=== PATIENT | male | born 1985 ===

== ENCOUNTER 2019-11-08 18:29 | Inpatient (IN) | payer SELFPAY ==
[~2019-11-08] VITALS: Ht 54.9 cm; Wt 83.1 kg
[2019-11-08] MEDS ORDERED: LISI2.5T (18:48)
[2019-11-08] MEDS ORDERED: ATOR20TA66 (18:48)
[2019-11-08] MEDS ORDERED: FENO145T37 (18:48)
[2019-11-08] MEDS ORDERED: METF-397 PO (18:48)
--- NOTE | 2019-11-08 18:54 | NUR ---
REPORT GIVEN TO SULLY COLON.
[2019-11-08 18:59] LABS: BASOPHILS % (AUTO) 0 % (0-10); EOSINOPHILS # (AUTO) 0.1 10^3/uL (0.0-0.3); EOSINOPHILS % (AUTO) 1 % (0-10); HEMATOCRIT 45 % (40-54); HEMOGLOBIN 17.9 G/DL (13.3-17.7); LYMPHOCYTES # (AUTO) 0.8 X 10^3 (1.0-4.0); LYMPHOCYTES % (AUTO) 9 % (12-44); MEAN CORPUSCULAR HEMOGLOBIN 28 PG (25-34); MEAN CORPUSCULAR HGB CONC 39 G/DL (32-36); MEAN CORPUSCULAR VOLUME 72 FL (80-99); MEAN PLATELET VOLUME 12.3 FL (7.4-10.4); MONOCYTES # (AUTO) 0.9 X 10^3 (0.0-1.0); MONOCYTES % (AUTO) 11 % (0-12); NEUTROPHILS # (AUTO) 6.6 X 10^3 (1.8-7.8); NEUTROPHILS % (AUTO) 79 % (42-75); PLATELET COUNT 147 10^3/uL (130-400); RED CELL DISTRIBUTION WIDTH 15.6 % (10.0-14.5); WHITE BLOOD COUNT 8.4 10^3/uL (4.3-11.0)
[2019-11-08 19:08] LABS: BILIRUBIN,URINE NEGATIVE (NEGATIVE); CLARITY,URINE CLEAR; COLOR,URINE YELLOW; GLUCOSE, URINE (UA) 3+ (NEGATIVE); KETONES,URINE NEGATIVE (NEGATIVE); LEUKOCYTE ESTERASE ,URINE NEGATIVE (NEGATIVE); NITRITE,URINE NEGATIVE (NEGATIVE); PH,URINE 7.5 (5-9); PROTEIN,URINE 1+ (NEGATIVE)
[2019-11-08 19:19] LABS: ALBUMIN 4.6 GM/DL (3.2-4.5); BILIRUBIN,TOTAL 0.5 MG/DL (0.1-1.0); BUN/CREATININE RATIO 12; CALCIUM 9.5 MG/DL (8.5-10.1); CARBON DIOXIDE 12 MMOL/L (21-32); CHLORIDE 98 MMOL/L (98-107); CREATININE SERUM 1.17 MG/DL (0.60-1.30); GFR ESTIMATED > 60; GLUCOSE 261 MG/DL (70-105); LIPASE 96 U/L (8-78); POTASSIUM 6.3 MMOL/L (3.6-5.0); SODIUM 128 MMOL/L (135-145)
[2019-11-08 19:19] LABS: AMORPHOUS SEDIMENT,UR MOD AMOR PHOSPHATE /LPF; BACTERIA,URINE NEGATIVE /HPF
[2019-11-08] MEDS ORDERED: NS IV 1000 ML 1,000 ML IV ONE ×2 (19:35→20:38)
[2019-11-08] MEDS ORDERED: GLIP5TAB13 (19:44)
[2019-11-08] MEDS ORDERED: ONDANSETRON 4 MG/2 ML (SDV) Z0FRAN IVP ONE (19:45)
[2019-11-08] MEDS ORDERED: fentaNYL INJECTION 100 MCG/2 ML AMP IVP ONE (20:00)
[2019-11-08] MEDS ORDERED: FAMOTIDINE 20MG/2ML IV (PEPCID) IVP ONE (20:00)
[2019-11-08 20:08] LABS: ALANINE AMINOTRANSFERASE 40 U/L (0-55); ALKALINE PHOSPHATASE 115 U/L (40-136)
[2019-11-08 20:09] LABS: CHOLESTEROL 252 MG/DL (< 200); TRIGLYCERIDES 3688 MG/DL (<150); VLDL CHOLESTEROL 738 MG/DL (5-40)
[2019-11-08 20:10] LABS: HDL CHOLESTEROL < 15 MG/DL (40-60)
[2019-11-08] MEDS ORDERED: NS 100 ML (IVPB) BAG IV ONE (20:15)
[2019-11-08] MEDS ORDERED: IOHEXOL 350 MG/ML 100 ML (OMNIPAQUE 350) VIAL IV ONE (20:15)
[2019-11-08] MEDS ORDERED: HOLD METFORMIN - RECEIVED CONTRAST 20 ML VIAL IV SCH (20:15)
--- NOTE | 2019-11-08 20:38 | Diagnostic Imaging Report ---
PROCEDURE: CT abdomen and pelvis with contrast. TECHNIQUE: Multiple contiguous axial images were obtained through the abdomen and pelvis after administration of intravenous contrast. Auto Exposure Controls were utilized during the CT exam to meet ALARA standards for radiation dose reduction. INDICATION: Nausea, vomiting, abdominal pain COMPARISON: None FINDINGS: Lung bases are clear. There is fatty infiltration throughout the liver. Single low density liver lesion is seen in the right hepatic lobe in the periphery. This is likely a small cyst. However, too small to classify. Follow-up with a nonemergent ultrasound is recommended. The gallbladder is normal. The spleen, pancreas, adrenal glands, kidneys, vascular structures, and bowel are grossly unremarkable. There is no free fluid, free air or obstruction. No inflammatory process is identified. Visualized appendix is normal. There is no lymphadenopathy. The prostate gland is normal. The bladder and distal ureters are unremarkable. Osseous structures are age-appropriate. IMPRESSION: 1. Fatty liver 2. Subcentimeter low-density liver lesion likely benign cysts. Nonemergent ultrasound recommended. 3. No bowel obstruction, free air, free fluid or inflammation. Dictated by: Dictated on workstation # [id number]
--- NOTE | 2019-11-08 20:59 | ED Abdominal Pain ---
General Chief Complaint: Abdominal/GI Problems Stated Complaint: UPPER ABD PAIN Nursing Triage Note: ARRIVED VIA AMB TO ROOM 05. COMPLAINS OF LEFT UPPER ABD PAIN THAT RADIATES INTO BACK. COMPLAINTS OF VOMITING THIS AM. HX OF PANCREATITIS. Sepsis Screen: No Definite Risk Source of Information: Patient Exam Limitations: No Limitations History of Present Illness Date Seen by Provider: Nov 08, 2019 Time Seen by Provider: 18:44 Initial Comments This 34-year-old gentleman presents to the emergency room with complaints of left-sided abdominal pain and vomiting that started this morning. He denies any diarrhea or constipation. Last bowel movement was this afternoon and was loose. He denies any fever, cough, or respiratory problems. Pain does not change with eating or drinking. He has a history of pancreatitis and elevated triglycerides for which she has been admitted at a hospital in [place] previously. He reports being out of some of his medications including glipizide, lisinopril, and fenofibrate for the past 2 weeks. His primary care provider is a [facility] in [facility]. Allergies and Home Medications Allergies Coded Allergies: No Known Drug Allergies (Unverified , 11/08/19) Patient Home Medication List Home Medication List Reviewed: Yes Review of Systems Review of Systems Constitutional: no symptoms reported EENTM: No Symptoms Reported Respiratory: No Symptoms Reported Cardiovascular: No Symptoms Reported Gastrointestinal: See HPI Genitourinary: No Symptoms Reported Musculoskeletal: no symptoms reported Skin: no symptoms reported Psychiatric/Neurological: No Symptoms Reported Endocrine: No Symptoms Reported Past Lyjfryp-Fkmfjk-Qqmrrp Hx Past Med/Social Hx: Reviewed and Corrections made Patient Social History Alcohol Use: Denies Use Recreational Drug Use: No Smoking Status: Never a Smoker Recent Foreign Travel: No Contact w/Someone Who Travel: No Recent Infectious Disease Expo: No Recent Hopitalizations: No Seasonal Allergies Seasonal Allergies: No Past Medical History Surgeries: Yes (HERNIA) Respiratory: No Cardiac: Yes High Cholesterol, Hypertension Neurological: No Genitourinary: No Gastrointestinal: Yes Pancreatitis Musculoskeletal: No Endocrine: Yes Diabetes, Non-Insulin dep HEENT: No Cancer: No Psychosocial: No Integumentary: No Physical Exam Vital Signs Vital Signs - First Documented 11/08/19 18:35 Temp 36.8 Pulse 85 Resp 16 B/P (MAP) 117/74 (88) Pulse Ox 96 O2 Delivery Room Air Capillary Refill : Less Than 3 Seconds Height/Weight/BMI Height: '" Weight: lbs. oz. 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 nml as tested, no motor/sensory deficits, alert, normal mood/affect, oriented x 3 Skin: normal color, warm/dry Progress/Results/Core Measures Results/Orders Lab Results Laboratory Tests Test 11/08/19 18:50 11/08/19 19:01 Range/Units White Blood Count 8.4 4.3-11.0 10^3/uL Red Blood Count 6.31 H 4.35-5.85 10^6/uL Hemoglobin 17.9 H 13.3-17.7 G/DL Hematocrit 45 40-54 % Mean Corpuscular Volume 72 L 80-99 FL Mean Corpuscular Hemoglobin 28 25-34 PG Mean Corpuscular Hemoglobin Concent 39 H 32-36 G/DL Red Cell Distribution Width 15.6 H 10.0-14.5 % Platelet Count 147 130-400 10^3/uL Mean Platelet Volume 12.3 H 7.4-10.4 FL Neutrophils (%) (Auto) 79 H 42-75 % Lymphocytes (%) (Auto) 9 L 12-44 % Monocytes (%) (Auto) 11 0-12 % Eosinophils (%) (Auto) 1 0-10 % Basophils (%) (Auto) 0 0-10 % Neutrophils # (Auto) 6.6 1.8-7.8 X 10^3 Lymphocytes # (Auto) 0.8 L 1.0-4.0 X 10^3 Monocytes # (Auto) 0.9 0.0-1.0 X 10^3 Eosinophils # (Auto) 0.1 0.0-0.3 10^3/uL Basophils # (Auto) 0.0 0.0-0.1 10^3/uL Sodium Level 128 L 135-145 MMOL/L Potassium Level 6.3 H 3.6-5.0 MMOL/L Chloride Level 98 98-107 MMOL/L Carbon Dioxide Level 12 L 21-32 MMOL/L Anion Gap 18 H 5-14 MMOL/L Blood Urea Nitrogen 14 7-18 MG/DL Creatinine 1.17 0.60-1.30 MG/DL Estimat Glomerular Filtration Rate > 60 BUN/Creatinine Ratio 12 Glucose Level 261 H 70-105 MG/DL Calcium Level 9.5 8.5-10.1 MG/DL Corrected Calcium 8.5-10.1 MG/DL Total Bilirubin 0.5 0.1-1.0 MG/DL Aspartate Amino Transf (AST/SGOT) 85 H 5-34 U/L Alanine Aminotransferase (ALT/SGPT) 40 0-55 U/L Alkaline Phosphatase 115 40-136 U/L Total Protein 14.0 H 6.4-8.2 GM/DL Albumin 4.6 H 3.2-4.5 GM/DL Triglycerides Level 3688 H <150 MG/DL Cholesterol Level 252 H < 200 MG/DL LDL Cholesterol Direct 58 1-129 MG/DL VLDL Cholesterol 738 H 5-40 MG/DL HDL Cholesterol < 15 L 40-60 MG/DL Lipase 96 H 8-78 U/L Urine Color YELLOW Urine Clarity CLEAR Urine pH 7.5 5-9 Urine Specific [place] 1.020 1.016-1.022 Urine Protein 1+ H NEGATIVE Urine Glucose (UA) 3+ H NEGATIVE Urine Ketones NEGATIVE NEGATIVE Urine Nitrite NEGATIVE NEGATIVE Urine Bilirubin NEGATIVE NEGATIVE Urine Urobilinogen 1.0 < = 1.0 MG/DL Urine Leukocyte Esterase NEGATIVE NEGATIVE Urine RBC (Auto) NEGATIVE NEGATIVE Urine RBC NONE /HPF Urine WBC NONE /HPF Urine Crystals PRESENT H /LPF Urine Amorphous Sediment MOD RADHA PHOSPHATE H /LPF Urine Bacteria NEGATIVE /HPF Urine Casts NONE /LPF Urine Mucus NEGATIVE /LPF Urine Culture Indicated NO My Orders Orders - DEV SEAY MD Cbc With Automated Diff (11/08/19 18:44) Comprehensive Metabolic Panel (11/08/19 18:44) Lipase (11/08/19 18:44) Ua Culture If Indicated (11/08/19 18:44) Ed Iv/Invasive Line Start (11/08/19 18:44) Ondansetron Injection (Zofran Injectio (11/08/19 19:45) Ns Iv 1000 Ml (Sodium Chloride 0.9%) (11/08/19 19:35) Lipid Panel (11/08/19 19:47) Famotidine Injection (Pepcid Injection) (11/08/19 20:00) Fentanyl Injection (Sublimaze Injection (11/08/19 20:00) Ct Abdomen/Pelvis W (11/08/19 19:49) Iohexol Injection (Omnipaque 350 Mg/Ml 1 (11/08/19 20:15) Received Contrast (Hold Metformin- Contr (11/08/19 20:15) Ns (Ivpb) (Sodium Chloride 0.9% Ivpb Bag (11/08/19 20:15) Ns Iv 1000 Ml (Sodium Chloride 0.9%) (11/08/19 20:38) Medications Given in ED Vital Signs/I&O 11/08/19 18:35 Temp 36.8 Pulse 85 Resp 16 B/P (MAP) 117/74 (88) Pulse Ox 96 O2 Delivery Room Air 11/09/19 00:00 Intake Total 1000 ml Balance 1000 ml Blood Pressure Mean: 88 Progress Progress Note : Progress Note Patient was treated with IV fluids, Zofran, and fentanyl while workup was being pursued. Patient was found to have a significant elevation in triglycerides. Lipase was only minimally elevated. Due to concerns about possible escalating pancreatitis, patient was admitted with nothing by mouth status. CT was performed due to patient's significant pain. No acute findings were seen to explain patient's pain. Case was reviewed with Dr. Lockwood Diagnostic Imaging Diagonstic Imaging: CT Plain Films/CT/US/NM/MRI: abdomen, pelvis Comments CT abdomen and pelvis viewed by me and report reviewed. See report below: NAME: CHEN SNOW [facility] REC#: [id number] PT STATUS: REG ER : 1985 PHYSICIAN: DEV SEAY MD ADMIT DATE: 11/08/19/ER Sign ed Date of Exam:11/08/19 CT ABDOMEN/PELVIS W PROCEDURE: CT abdomen and pelvis with contrast. TECHNIQUE: Multiple contiguous axial images were obtained through the abdomen and pelvis after administration of intravenous contrast. Auto Exposure Controls were utilized during the CT exam to meet ALARA standards for radiation dose reduction. INDICATION: Nausea, vomiting, abdominal pain COMPARISON: None FINDINGS: Lung bases are clear. There is fatty infiltration throughout the liver. Single low density liver lesion is seen in the right hepatic lobe in the periphery. This is likely a small cyst. However, too small to classify. Follow-up with a nonemergent ultrasound is recommended. The gallbladder is normal. The spleen, pancreas, adrenal glands, kidneys, vascular structures, and bowel are grossly unremarkable. There is no free fluid, free air or obstruction. No inflammatory process is identified. Visualized appendix is normal. There is no lymphadenopathy. The prostate gland is normal. The bladder and distal ureters are unremarkable. Osseous structures are age-appropriate. IMPRESSION: 1. Fatty liver 2. Subcentimeter low-density liver lesion likely benign cysts. Nonemergent ultrasound recommended. 3. No bowel obstruction, free air, free fluid or inflammation. Dictated by: Dictated on workstation # [id number] Dict: 11/08/192027 Trans: 11/08/192037 [facility] [id number] Interpreted by: SARANYA WEI Electronically signed by: SARANYA WEI 11/08/192037 Departure Communication (Admissions) Dr. Lockwood Impression Primary Impression: Left sided abdominal pain Additional Impressions: Elevated triglycerides with high cholesterol Hyponatremia Hyperkalemia Disposition: ADMITTED INPATIENT Condition: Improved Admissions Decision to Admit Reason: Admit from ER (General) Decision to Admit/Date: Nov 09, 2019 Departure-Patient Inst. Referrals: NO,LOCAL PHYSICIAN (PCP/Family) Primary Care Physician DEV SEAY MD Nov 08, 2019 20:59
[2019-11-08 22:20] VITALS: BP 123/73
--- NOTE | 2019-11-08 22:20 | NUR ---
CHEN SNOW admitted to room 433-1, with an admitting diagnosis of left sided abd pain, elevated triglycerides, hyponatremia, on 11/08/19 from ED via wheelchair, accompanied by staff and family.CHEN SNOW introduced to surroundings, call light, bed controls, phone, TV, temperature control, lights, meal times, smoking policy, visitor policy, side rail policy, bathrooms and showers. Patient Rights given to patient in the handbook. CHEN SNOW verbalizes understanding that [facility] is not responsible for the loss or damage to any personal effects or valuables that are kept in the patients posession during their hospitalization.
[2019-11-08] MEDS: NS IV 1000 ML 1,000 ML IV SCH (23:11)
[2019-11-08] MEDS: fentaNYL INJECTION 100 MCG/2 ML AMP IV PRN (23:11)
[2019-11-08] MEDS: PANTOPRAZOLE 40 MG (PROTONIX) VIAL IV SCH (23:11)
[2019-11-08] MEDS: ONDANSETRON 4 MG/2 ML (SDV) Z0FRAN IV PRN (23:23)
[2019-11-09] VITALS: BP 118/74
[2019-11-09] MEDS: fentaNYL INJECTION 100 MCG/2 ML AMP IV PRN ×4 (03:44→10:13)
[2019-11-09 04:30] VITALS: BP 104/68
[2019-11-09] MEDS: NS IV 1000 ML 1,000 ML IV SCH (05:49)
[2019-11-09 06:10] LABS: BASOPHILS % (AUTO) 0 % (0-10); EOSINOPHILS # (AUTO) 0.1 10^3/uL (0.0-0.3); EOSINOPHILS % (AUTO) 1 % (0-10); HEMATOCRIT 44 % (40-54); LYMPHOCYTES # (AUTO) 0.9 X 10^3 (1.0-4.0); LYMPHOCYTES % (AUTO) 12 % (12-44); MEAN CORPUSCULAR HEMOGLOBIN 26 PG (25-34); MEAN CORPUSCULAR HGB CONC 36 G/DL (32-36); MEAN CORPUSCULAR VOLUME 73 FL (80-99); MEAN PLATELET VOLUME 12.2 FL (7.4-10.4); MONOCYTES # (AUTO) 0.4 X 10^3 (0.0-1.0); MONOCYTES % (AUTO) 6 % (0-12); NEUTROPHILS # (AUTO) 6.1 X 10^3 (1.8-7.8); NEUTROPHILS % (AUTO) 82 % (42-75); PLATELET COUNT 122 10^3/uL (130-400); RED CELL DISTRIBUTION WIDTH 14.3 % (10.0-14.5); WHITE BLOOD COUNT 7.4 10^3/uL (4.3-11.0)
[2019-11-09 06:34] LABS: ALANINE AMINOTRANSFERASE 39 U/L (0-55); ALBUMIN 3.7 GM/DL (3.2-4.5); ALKALINE PHOSPHATASE 82 U/L (40-136); BILIRUBIN,TOTAL 0.8 MG/DL (0.1-1.0); BUN/CREATININE RATIO 13; CALCIUM 8.3 MG/DL (8.5-10.1); CHLORIDE 104 MMOL/L (98-107); CREATININE SERUM 0.87 MG/DL (0.60-1.30); GFR ESTIMATED > 60; GLUCOSE 209 MG/DL (70-105); LIPASE 61 U/L (8-78); POTASSIUM 4.8 MMOL/L (3.6-5.0); SODIUM 130 MMOL/L (135-145); TOTAL PROTEIN 8.9 GM/DL (6.4-8.2); TRIGLYCERIDES 1413 MG/DL (<150)
[2019-11-09 06:37] LABS: CARBON DIOXIDE 9 MMOL/L (21-32)
--- NOTE | 2019-11-09 06:57 | NUR ---
0637-CRITICAL CARBON DIOXIDE IS 9. [phone]- SPOKE WITH DR. RANDALL AND INFOMRED HIM OF PTS CRITICAL LAB. HE STATED HE WOULD TAKE A LOOK AT THE LABS TO SEE WHATS GOING ON.
[2019-11-09 07:27] LABS: MAGNESIUM 1.7 MG/DL (1.6-2.4); PHOSPHORUS 2.6 MG/DL (2.3-4.7)
[2019-11-09 08:00] VITALS: BP 112/77
[2019-11-09] MEDS: PANTOPRAZOLE 40 MG (PROTONIX) VIAL IV SCH (08:07)
[2019-11-09] MEDS: LACTATED RINGERS 1,000 ML IV SCH ×3 (09:43→21:52)
[2019-11-09 10:20] LABS: ABG BASE EXCESS -2.8 MMOL/L (-2.5-2.5); ABG OXYGEN SATURATION 96 % (94-100); ABG PCO2 38 MMHG (35-45); ABG PH 7.38 (7.37-7.43); ABG PO2 77 MMHG (79-93); ABG TCO2 22.6 MMOL/L (21.0-31.0)
[2019-11-09 10:21] LABS: ALLENS TEST YES-POS; INSPIRED O2 ROOM AIR; VENTILATOR NO
[2019-11-09 11:31] LABS: AMPHETAMINE SCREEN, URINE NEGATIVE (NEGATIVE); BARBITURATE SCREEN URINE NEGATIVE (NEGATIVE); BENZODIAZEPINES SCREEN URINE NEGATIVE (NEGATIVE); COCAINE SCREEN URINE NEGATIVE (NEGATIVE); METHADONE STAT NEGATIVE (NEGATIVE); METHAMPHETAMINE SCREEN URINE S NEGATIVE (NEGATIVE); OPIATE SCREEN URINE NEGATIVE (NEGATIVE); OXYCODONE STAT NEGATIVE (NEGATIVE); PROPOXYPHENE STAT NEGATIVE (NEGATIVE)
[2019-11-09 11:32] LABS: CANNABINOID SCREEN, URINE NEGATIVE (NEGATIVE); TRICYCLIC ANTIDEPRESSANTS SCRE NEGATIVE (NEGATIVE)
--- NOTE | 2019-11-09 14:50 | History & Physical-Hospitalist ---
History of Present Illness HPI/Chief Complaint Paty Hernandez is a 34-year-old male with past medical history of hypertension, diabetes, hyperlipidemia, who presented with abdominal pain. He reports the gradual onset of left-sided abdominal pain which is squeezing in nature with radiation to his epigastric region and to his back. He reports having similar symptoms before when he had pancreatitis due to hypertriglyceridemia. He is followed by a clinic in [place]. He recently ran out of his medications. He denies any fevers or chills. He denies any nausea or vomiting. He denies any diarrhea. He denies any chest pain or shortness of breath. Source: patient Exam Limitations: no limitations Date Seen 11/09/19 Time Seen by a Provider: 09:40 Attending Physician Rosemarie Randall MD PCP No,Local Physician Referring Physician Date of Admission Nov 08, 2019 at 21:11 Home Medications & Allergies Home Medications Reviewed patient Home Medication Reconciliation performed by pharmacy medication reconciliations air analysis technician and/or nursing. Patients Allergies have been reviewed. Allergies Allergies Coded Allergies No Known Drug Allergies (Mxxxzdfmlz41/27/19) Past Itglvuk-Nenlpb-Pwxvyz Hx Past Med/Social Hx: Reviewed Nursing Past Med/Soc Hx, Reviewed and Corrections made Patient Social History Alcohol Use: Denies Use Recreational Drug Use: No Smoking Status: Never a Smoker Recent Foreign Travel: No Contact w/other who traveled: No Recent Hopitalizations: No Recent Infectious Disease Expo: No Immunizations Up To Date Date of Influenza Vaccine: Aug 27, 2019 Seasonal Allergies Seasonal Allergies: No Past Medical History Cardiac: High Cholesterol, Hypertension Gastrointestinal: Pancreatitis Endocrine: Diabetes, Non-Insulin dep Family History Chronic lymphoid leukemia G8 SISTER, Onset:Adolescence Review of Systems Constitutional: no symptoms reported EENTM: no symptoms reported Respiratory: no symptoms reported Cardiovascular: no symptoms reported Gastrointestinal: abdominal pain Genitourinary: no symptoms reported Musculoskeletal: no symptoms reported Skin: no symptoms reported Psychiatric/Neurological: No Symptoms Reported Physical Exam Physical Exam Vital Signs Vital Signs - First Documented 11/08/19 18:35 Temp 36.8 Pulse 85 Resp 16 B/P (MAP) 117/74 (88) Pulse Ox 96 O2 Delivery Room Air Capillary Refill : Less Than 3 Seconds Height, Weight, BMI Height: '" Weight: lbs. oz. kg; 275.71 BMI Method: General Appearance: No Apparent Distress, WD/WN HEENT: PERRL/EOMI, Pharynx Normal Neck: Normal Inspection, Supple Respiratory: Lungs Clear, Normal Breath Sounds, No Respiratory Distress Cardiovascular: Regular Rate, Rhythm, No Edema, No Murmur Gastrointestinal: Normal Bowel Sounds, Soft; No Distended, No Guarding; Tenderness Extremity: Normal Inspection, Non Tender, No Pedal Edema Neurologic/Psychiatric: Alert, Oriented x3, No Motor/Sensory Deficits, Normal Mood/Affect Skin: Normal Color, Warm/Dry Lymphatic: No Adenopathy Results Results/Procedures Labs Laboratory Tests 11/08/19 18:50 11/09/19 05:57 Patient resulted labs reviewed. Imaging: Reviewed Imaging Report Assessment/Plan Admission Diagnosis Hypertriglyceridemia-induced pancreatitis Admission Status: Inpatient Order (span 2 midnights) Reason for Inpatient Admission: pancreatitis requiring IV pain control and bowel rest Assessment and Plan Hypertriglyceridemia-induced pancreatitis CT abdomen unrevealing Lipase mildly elevated Triglycerides severely elevated Nothing by mouth IV pain control ordered LR 150 mL per hour continue Lipitor and fenofibrate High anion gap metabolic acidosis Bicarbonate 9 on BMP this morning Lactic acid normal Beta hydroxy butyrate mildly elevated Alcohol negative ABG performed and bicarbonate level 22 Repeat BMP this afternoon Acute kidney injury creatinine mildly elevated on admission Improved this morning, continue to monitor Elevated protein level Likely associated with hypertriglyceridemia Check SPEP Liver lesion CT abdomen revealed subcentimeter liver lesion We'll plan for outpatient follow-up with ultrasound DVT prophylaxis: Lovenox Diagnosis/Problems Diagnosis/Problems (1) Pancreatitis Status: Acute Qualifiers: Pancreatitis type: other Acute pancreatitis complication: no infection or necrosis (2) Hypertriglyceridemia Status: Acute (3) Metabolic acidosis Status: Acute (4) CHLOE (acute kidney injury) Status: Acute (5) Elevated blood protein Status: Acute (6) Liver lesion Status: Acute Clinical Quality Measures DVT/VTE Risk/Contraindication: Risk Factor Score Per Nursin RFS Level Per Nursing on Admit: 1=Low/No VTE PPX ROSEMARIE RANDALL MD Nov 09, 2019 14:50
[2019-11-09 15:19] LABS: BUN/CREATININE RATIO 14; CALCIUM 8.2 MG/DL (8.5-10.1); CARBON DIOXIDE 17 MMOL/L (21-32); CHLORIDE 104 MMOL/L (98-107); CREATININE SERUM 0.84 MG/DL (0.60-1.30); GFR ESTIMATED > 60; GLUCOSE 181 MG/DL (70-105); POTASSIUM 3.9 MMOL/L (3.6-5.0); SODIUM 133 MMOL/L (135-145)
[2019-11-09] MEDS: inSUlin ASPART (NovoLOG) 1 UNIT/0.01 ML (CHARGE PER UNIT) SC SCH ×3 (15:42→21:51)
[2019-11-09 16:00] VITALS: BP 106/69
[2019-11-09 20:00] VITALS: BP 101/61
[2019-11-09] MEDS ORDERED: FENOFIBRATE 134 MG (LOFIBRA) CAPSULE PO SCH (21:00)
[2019-11-10 00:18] VITALS: BP 115/74
[2019-11-10 04:00] VITALS: BP 104/65
[2019-11-10] MEDS: ONDANSETRON 4 MG/2 ML (SDV) Z0FRAN IV PRN (04:54)
[2019-11-10] MEDS: inSUlin ASPART (NovoLOG) 1 UNIT/0.01 ML (CHARGE PER UNIT) SC SCH (05:41)
[2019-11-10 06:32] LABS: BUN/CREATININE RATIO 12; CALCIUM 8.5 MG/DL (8.5-10.1); CARBON DIOXIDE 20 MMOL/L (21-32); CHLORIDE 106 MMOL/L (98-107); CREATININE SERUM 0.86 MG/DL (0.60-1.30); GFR ESTIMATED > 60; GLUCOSE 150 MG/DL (70-105); POTASSIUM 3.8 MMOL/L (3.6-5.0); SODIUM 136 MMOL/L (135-145); TRIGLYCERIDES 356 MG/DL (<150)
[2019-11-10] MEDS: LACTATED RINGERS 1,000 ML IV SCH (06:33)
[2019-11-10] MEDS ORDERED: ACETAMINOPHEN 325 MG TABLET PO PRN (06:45)
[2019-11-10 07:40] VITALS: BP 103/65
--- NOTE | 2019-11-10 11:16 | Discharge Summary ---
Discharge Summary Hospital Course Problems/Dx: (1) Pancreatitis Status: Resolved Qualifiers: (2) Hypertriglyceridemia Status: Chronic (3) Metabolic acidosis Status: Resolved (4) CHLOE (acute kidney injury) Status: Resolved (5) Elevated blood protein Status: Acute (6) Liver lesion Status: Acute Hospital Course Date of Admission: Nov 08, 2019 at 21:11 Admission Diagnosis : Hypertriglyceridemia-induced pancreatitis Family Physician/Provider: Shirley Mtz Physician Date of Discharge: 11/10/19 Discharge Diagnosis: Hypertriglyceridemia-induced pancreatitis Hospital Course: Paty Hernandez is a 34-year-old male with past medical history of hypertension, diabetes, hyperlipidemia with marked hypertriglyceridemia, who presented with abdominal pain and was admitted with hypertriglyceridemia-induced pancreatitis. He was treated conservatively with IV fluids, pain medications, and gut rest. His pain improved rather quickly. His diet was advanced and he tolerated this well. His triglyceride levels came down the from above 3000 on arrival down to 300 on discharge. He had been out of his medications. 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 He needs to follow up with his primary care physician in [facility]. He was encouraged to get set up with a local physician. He was also found to have a protein gap. A serum protein electrophoresis was pending at the time of discharge. Workup also revealed a subcentimeter liver lesion. Radiology recommended follow-up with an ultrasound as an outpatient. Labs and Pending Lab Test: Laboratory Tests 11/09/19 14:57: Sodium Level 133L, Potassium Level 3.9, Chloride Level 104, Carbon Dioxide Level 17L, Anion Gap 12, Blood Urea Nitrogen 12, Creatinine 0.84, Estimat Glomerular Filtration Rate > 60, BUN/Creatinine Ratio 14, Glucose Level 181H, Calcium Level 8.2L 11/09/19 16:13: Glucometer 176H 11/09/19 21:08: Glucometer 176H 11/10/19 05:25: Glucometer 164H 11/10/19 05:45: Sodium Level 136, Potassium Level 3.8, Chloride Level 106, Carbon Dioxide Level 20L, Anion Gap 10, Blood Urea Nitrogen 10, Creatinine 0.86, Estimat Glomerular Filtration Rate > 60, BUN/Creatinine Ratio 12, Glucose Level 150H, Calcium Level 8.5, Triglycerides Level 356H Home Meds Active Reported Glipizide 5 Mg Tablet Fenofibrate (Fenofibrate Nanocrystallized) 145 Mg Tablet Atorvastatin Calcium 20 Mg Tablet Lisinopril 2.5 Mg Tablet Metformin HCl 500 Mg Tablet 1,000 Mg PO BID Assessment/Pt Instructions Take medications as prescribed. Pickup her prescriptions from your pharmacy. Work note given. Follow-up with her primary care physician in [place]. Consider establishing with a local physician. Discharge Planning: <30 minutes discharge planning Discharge Instructions Discharge Diet: Low Fat/Low Cholesterol Activity as Tolerated: Yes Discharge Physical Examination Vital Signs Vital Signs Date Time Temp Pulse Resp B/P (MAP) Pulse Ox O2 Delivery O2 Flow Rate FiO2 11/10/19 08:00 Room Air 11/10/19 07:40 36.7 75 16 103/65 (78 97 General Appearance: No Apparent Distress, WD/WN HEENT: PERRL/EOMI, Pharynx Normal Respiratory: Lungs Clear, Normal Breath Sounds, No Respiratory Distress Cardiovascular: Regular Rate, Rhythm, No Edema, No Murmur Gastrointestinal: Normal Bowel Sounds, Soft, Tenderness Extremity: Normal Inspection, Non Tender, No Pedal Edema Skin: Normal Color, Warm/Dry Neurologic/Psychiatric: Alert, Oriented x3, No Motor/Sensory Deficits, Normal Mood/Affect Allergies: Coded Allergies: No Known Drug Allergies (Unverified , 11/08/19) Discharge Summary Date of Admission Nov 08, 2019 at 21:11 Date of Discharge Discharge Date: Nov 10, 2019 Discharge Time: 08:15 Admission Diagnosis Hypertriglyceridemia-induced pancreatitis Discharge Diagnosis Hypertriglyceridemia-induced pancreatitis (1) Pancreatitis Status: Resolved Qualifiers: (2) Hypertriglyceridemia Status: Chronic (3) Metabolic acidosis Status: Resolved (4) CHLOE (acute kidney injury) Status: Resolved (5) Elevated blood protein Status: Acute (6) Liver lesion Status: Acute Clinical Quality Measures DVT/VTE Risk/Contraindication: Risk Factor Score Per Nursin RFS Level Per Nursing on Admit: 1=Low/No VTE PPX OSVALDO RANDALL MD Nov 10, 2019 11:15
[2019-11-10 13:30] VITALS: BP 103/65
== END 2019-11-10 13:31 | disposition home or self-care (01) | DRG 439 ==
LOC: EDUNIT# 18:29 → ER 18:33 → OBSVTOIN 21:11 → 4TH 21:11
PROVIDERS: ADMIT Internal Medicine; ATTEND Internal Medicine
DX: K85.90 Acute pancreatitis without necrosis or infection, unspecified (principal); E78.1 Pure hyperglyceridemia; E87.2 Acidosis; N17.9 Acute kidney failure, unspecified; E87.1 Hypo-osmolality and hyponatremia; R79.89 Other specified abnormal findings of blood chemistry; K76.9 Liver disease, unspecified; E11.9 Type 2 diabetes mellitus without complications; E78.00 Pure hypercholesterolemia, unspecified; I10 Essential (primary) hypertension; E87.5 Hyperkalemia; Z79.84 Long term (current) use of oral hypoglycemic drugs; Z91.14 Patient's other noncompliance with medication regimen
CPT/HCPCS: 36415; 74177; 80048; 80053; 80061; 80306; 80320; 81000; 82010; 82805; 82962; 83605; 83690; 83735; 84100; 84155; 84165; 84478; 85025; 96361; 96374; 96375

== ENCOUNTER → 2019-11-19 | Outpatient (CLI) | payer SELFPAY ==
[~2019-11-19] MED LIST: ATOR20TA66; FENO145T37; GLIP5TAB13; LISI2.5T; METF-397 PO
--- NOTE | 2019-11-19 12:34 | Diagnostic Imaging Report ---
INDICATION: Follow-up liver lesion noted on recent CT. COMPARISON: Correlation is made with CT study from 11/08/2019. FINDINGS: Liver is mildly enlarged at 19 cm. There is some increased echogenicity throughout the liver consistent with hepatic steatosis. Area of decreased echogenicity near the gallbladder is noted consistent with focal fatty sparing. There is a cyst in the right lobe of the liver measuring approximately 15 mm, correlating with the CT abnormality. Gallbladder is without stones or sludge. No wall thickening or biliary ductal dilatation is seen. Pancreas was obscured by bowel gas. The spleen is normal in size at 10.8 cm. Aorta is nonaneurysmal. IVC is unremarkable. Kidneys are without calculi or hydronephrosis. There is no ascites. IMPRESSION: 1. Hepatomegaly and hepatic steatosis. 2. Liver cyst, likely accounting for the CT abnormality. 3. No other significant abnormalities detected. Dictated by: Dictated on workstation # [id number]
== END ==
LOC: RAD 08:19
DX: K76.89 Other specified diseases of liver (principal); K76.0 Fatty (change of) liver, not elsewhere classified
CPT/HCPCS: 76700

== ENCOUNTER 2020-11-14 17:14 | Emergency (ER) | payer SELFPAY ==
[~2020-11-14 17:14] MED LIST changes: +FENO145T26; -FENO145T37
--- NOTE | 2020-11-14 18:24 | NUR ---
THIS RN WENT OUT TO [facility] TO GET PT. PT NO LONGER IN [facility]. REGISTRATION STAFF REPORT PT STATED "I DON'T NEED TO BE SEEN ANYMORE."
== END 2020-11-14 18:24 | disposition left against medical advice (07) ==
LOC: EDUNIT# 17:14 → ER 17:16
DX: R10.9 Unspecified abdominal pain (principal)

== ENCOUNTER 2021-06-04 13:45 | Emergency (ER) | payer SELFPAY ==
[~2021-06-04] VITALS: Ht 170 cm; Wt 80.0 kg
[2021-06-04] MEDS ORDERED: NS IV 1000 ML 1,000 ML IV STA (17:49)
[2021-06-04 17:56] LABS: BASOPHILS # (AUTO) 0.1 10^3/uL (0.0-0.1); BASOPHILS % (AUTO) 1 % (0-10); EOSINOPHILS # (AUTO) 0.8 10^3/uL (0.0-0.3); EOSINOPHILS % (AUTO) 10 % (0-10); HEMATOCRIT 49 % (40-54); HEMOGLOBIN 17.8 g/dL (13.3-17.7); LYMPHOCYTES # (AUTO) 1.3 10^3/uL (1.0-4.0); LYMPHOCYTES % (AUTO) 17 % (12-44); MEAN CORPUSCULAR HEMOGLOBIN 27 pg (25-34); MEAN CORPUSCULAR HGB CONC 36 g/dL (32-36); MEAN CORPUSCULAR VOLUME 75 fL (80-99); MEAN PLATELET VOLUME 12.2 fL (9.0-12.2); MONOCYTES # (AUTO) 0.4 10^3/uL (0.0-1.0); MONOCYTES % (AUTO) 6 % (0-12); NEUTROPHILS % (AUTO) 65 % (42-75); PLATELET COUNT 158 10^3/uL (130-400); WHITE BLOOD COUNT 7.7 10^3/uL (4.3-11.0)
--- NOTE | 2021-06-04 17:56 | ED Abdominal Pain ---
General Chief Complaint: Abdominal/GI Problems Stated Complaint: LEFT SIDE PAIN Nursing Triage Note: THE PT IS AMBULATORY TO THE ROOM WITHOUT DIFFICULTY. NO DISTRESS IS SEEN ON ARRIVAL. LOC IS NORMAL FOR THE PT. THE PT C/O ABD PAIN, TODAY. Source of Information: Patient (SOMEWHAT LIMITED HISTORIAn) History of Present Illness Date Seen by Provider: Jun 04, 2021 Time Seen by Provider: 17:45 Initial Comments PT ARRIVES VIA POV C/O LEFT UPPER QUADRANT PAIN, RADIATING TO LEFT FLANK--BEGAN SOMETIME THIS AFTERNOON PAIN WAXES AND WANES BUT DOES NOT GO AWAY NOTHING WORSENS OR IMPROVES PAIN C/O NAUSEA, VOMITED X 2 HAD NORMAL BM EARLIER TODAY NO URINARY SYMPTOMS NO FEVER NO HISTORY OF SIMILAR, BUT PER OLD RECORDS, HAS HISTORY OF PANCREATITIS HAS NOT TAKEN ANYTHING FOR SYMPTOMS ATE SHRIMP AND MUSHROOMS ( NOT FRIED) AT LUNCH TODAY PAIN BEGAN SOMETIME AFTER THAT NO PRIOR GI/ABDOMINAL PROBLEMS HAS HAD RIGHT INGUINAL HERNIA SURGERY IN THE PAST PT IS NON-INSULIN DEPENDENT DIABETIC, DOES NOT CHECK BLOOD SUGAR ROUTINELY NO KNOWN SICK CONTACTS PT WORKS AT [employer] PT HAS RECEIVED BOTH COVID VACCINES--LAST ONE 02/2021 PCP: MONCHO, MARGARET SILVA Allergies and Home Medications Allergies Coded Allergies: No Known Drug Allergies (Unverified , 11/08/19) Home Medications Atorvastatin Calcium 20 Mg Tablet, 20 MG PO DAILY Prescribed by: JANINE PADILLA on 06/04/212006 Fenofibrate Nanocrystallized 145 Mg Tablet, 145 MG PO DAILY Prescribed by: JANINE PADILLA on 06/04/21 2007 Glipizide 5 Mg Tablet, 5 MG PO BID Prescribed by: JANINE PADILLA on 06/04/21 2008 Metformin HCl 500 Mg Tablet, 1,000 MG PO BID, (Reported) Metformin HCl 500 Mg Tablet, 500 MG PO BID Prescribed by: JANINE PADILLA on 06/04/212007 Ondansetron 4 Mg Tab.rapdis, 4 MG PO Q4H Prescribed by: JANINE PADILLA on 06/04/212004 Patient Home Medication List Home Medication List Reviewed: Yes Review of Systems Review of Systems Constitutional: no symptoms reported Respiratory: No Symptoms Reported Cardiovascular: No Symptoms Reported Gastrointestinal: See HPI, Abdominal Pain; Denies Constipated, Denies Diarrhea; Nausea, Vomiting Genitourinary: No Symptoms Reported Musculoskeletal: see HPI, back pain Skin: no symptoms reported Psychiatric/Neurological: No Symptoms Reported Endocrine: No Symptoms Reported Hematologic/Lymphatic: No Symptoms Reported Past Iryugxi-Xuvejb-Pvbvaj Hx Patient Social History Tobacco Use?: No Smoking Status: Never a Smoker Smokeless Tobacco Frequency: Never a User Use of E-Cig and/or Vaping Martin: Never a User Substance use?: No Alcohol Use?: No Seasonal Allergies Seasonal Allergies: No Past Medical History Surgery/Hospitalization HX: RIGHT INGUINAL HERNIA REPAIR Surgeries: Yes (HERNIA) Abdominal Respiratory: No Cardiac: Yes High Cholesterol, Hypertension Neurological: No Genitourinary: No Gastrointestinal: Yes Pancreatitis Musculoskeletal: No Endocrine: Yes Diabetes, Non-Insulin dep HEENT: No Cancer: No Psychosocial: No Integumentary: No Family Medical History Chronic lymphoid leukemia G8 SISTER, Onset:Adolescence Physical Exam Vital Signs Vital Signs - First Documented 06/04/21 06/04/21 15:54 20:33 Temp 36.8 Pulse 70 Resp 16 B/P (MAP) 113/67 (82) Pulse Ox 98 Capillary Refill : Less Than 3 Seconds Height/Weight/BMI Height: '" Weight: lbs. oz. kg; 27.00 BMI Method: General Appearance: WD/WN, no apparent distress, other (DOES NOT APPEAR ILL OR TO BE IN ANY DISCOMFORT OR DISTRESS) HEENT: PERRL/EOMI; No scleral icterus (R), No scleral icterus (L) Neck: normal inspection Respiratory: normal breath sounds, no respiratory distress, no accessory muscle use Cardiovascular: regular rate, rhythm, no murmur Gastrointestinal: normal bowel sounds, soft, no organomegaly, no pulsatile mass; No distended, No guarding, No rebound; tenderness (LEFT UPPER QUADRANT AND LEFT FLANK/CVA AREA); No hernia, No mass Back: no vertebral tenderness, CVA tenderness (L) Neurologic/Psychiatric: timber cruiser II-XII nml as tested, no motor/sensory deficits, alert, normal mood/affect, oriented x 3 Skin: normal color (PT IS DARK-SKINNED), warm/dry; No rash Progress/Results/Core Measures Results/Orders Lab Results Laboratory Tests Test 06/04/21 15:50 06/04/21 18:16 06/04/21 20:20 Range/Units White Blood Count 7.7 4.3-11.0 10^3/uL Red Blood Count 6.58 H 4.30-5.52 10^6/uL Hemoglobin 17.8 H 13.3-17.7 g/dL Hematocrit 49 40-54 % Mean Corpuscular Volume 75 L 80-99 fL Mean Corpuscular Hemoglobin 27 25-34 pg Mean Corpuscular Hemoglobin Concent 36 32-36 g/dL Red Cell Distribution Width 13.7 10.0-14.5 % Platelet Count 158 130-400 10^3/uL Mean Platelet Volume 12.2 9.0-12.2 fL Immature Granulocyte % (Auto) 1 % Neutrophils (%) (Auto) 65 42-75 % Lymphocytes (%) (Auto) 17 12-44 % Monocytes (%) (Auto) 6 0-12 % Eosinophils (%) (Auto) 10 0-10 % Basophils (%) (Auto) 1 0-10 % Neutrophils # (Auto) 5.0 1.8-7.8 10^3/uL Lymphocytes # (Auto) 1.3 1.0-4.0 10^3/uL Monocytes # (Auto) 0.4 0.0-1.0 10^3/uL Eosinophils # (Auto) 0.8 H 0.0-0.3 10^3/uL Basophils # (Auto) 0.1 0.0-0.1 10^3/uL Immature Granulocyte # (Auto) 0.1 0.0-0.1 10^3/uL Sodium Level 130 L 135-145 MMOL/L Potassium Level 6.0 H 3.6-5.0 MMOL/L Chloride Level 97 L 98-107 MMOL/L Carbon Dioxide Level 19 L 21-32 MMOL/L Anion Gap 14 5-14 MMOL/L Blood Urea Nitrogen 14 7-18 MG/DL Creatinine 1.03 0.60-1.30 MG/DL Estimat Glomerular Filtration Rate 81 BUN/Creatinine Ratio 14 Glucose Level 374 H 70-105 MG/DL Calcium Level 9.0 8.5-10.1 MG/DL Corrected Calcium 8.8 8.5-10.1 MG/DL Magnesium Level 2.1 1.6-2.4 MG/DL Total Bilirubin 0.6 0.1-1.0 MG/DL Aspartate Amino Transf (AST/SGOT) 82 H 5-34 U/L Alanine Aminotransferase (ALT/SGPT) 36 0-55 U/L Alkaline Phosphatase 90 40-136 U/L Troponin I < 0.028 <0.028 NG/ML Total Protein 12.6 H 6.4-8.2 GM/DL Albumin 4.2 3.2-4.5 GM/DL Triglycerides Level 2436 H <150 MG/DL Cholesterol Level 247 H < 200 MG/DL LDL Cholesterol Direct 70 1-129 MG/DL VLDL Cholesterol 5-40 MG/DL HDL Cholesterol < 15 L 40-60 MG/DL Amylase Level 101 25-125 U/L Lipase 92 H 8-78 U/L Urine Color YELLOW Urine Clarity CLEAR Urine pH 7.0 5-9 Urine Specific [place] 1.010 L 1.016-1.022 Urine Protein NEGATIVE NEGATIVE Urine Glucose (UA) 3+ H NEGATIVE Urine Ketones NEGATIVE NEGATIVE Urine Nitrite NEGATIVE NEGATIVE Urine Bilirubin NEGATIVE NEGATIVE Urine Urobilinogen 0.2 < = 1.0 MG/DL Urine Leukocyte Esterase NEGATIVE NEGATIVE Urine RBC (Auto) NEGATIVE NEGATIVE Urine RBC NONE /HPF Urine WBC RARE /HPF Urine Squamous Epithelial Cells RARE /HPF Urine Crystals NONE /LPF Urine Bacteria NEGATIVE /HPF Urine Casts NONE /LPF Urine Mucus NEGATIVE /LPF Urine Culture Indicated NO Glucometer 192 H 70-110 MG/DL My Orders Orders - JANINE PADILLA DO Ed Iv/Invasive Line Start (06/04/21 17:49) Monitor-Rhythm Ecg Trace Only (06/04/21 17:49) Amylase (06/04/21 17:49) Cbc With Automated Diff (06/04/21 17:49) Comprehensive Metabolic Panel (06/04/21 17:49) Lipase (06/04/21 17:49) Magnesium (06/04/21 17:49) Ondansetron Injection (Zofran Injectio (06/04/21 18:00) Ns Iv 1000 Ml (Sodium Chloride 0.9%) (06/04/21 17:49) Ed Iv/Invasive Line Start (06/04/21 17:49) Lipid Panel (06/04/21 18:17) Ketorolac Injection (Toradol Injection) (06/04/21 18:30) Pantoprazole Injection (Protonix Injecti (06/04/21 18:30) Ekg Tracing (06/04/21 18:30) Troponin I (06/04/21 18:31) Ct Abdomen/Pelvis W (06/04/21 18:43) Acute Abd Series (06/04/21 18:43) Iohexol Injection (Omnipaque 350 Mg/Ml 1 (06/04/21 19:15) Received Contrast (Hold Metformin- Contr (06/04/21 19:15) Ns (Ivpb) (Sodium Chloride 0.9% Ivpb Bag (06/04/21 19:15) Ed Iv/Invasive Line Start (06/04/21 19:37) Ns Iv 1000 Ml (Sodium Chloride 0.9%) (06/04/21 19:45) Insulin (Regular) Human (Novolin R (Per (06/04/21 19:45) Accucheck Stat ONCE (06/04/21 20:01) Medications Given in ED Current Medications Medications Dose Ordered Sig/Kaylan Route Start Time Stop Time Status Last Admin Dose Admin Iohexol 100 ml ONCE ONCE IV 06/04/21 19:15 06/04/21 19:16 DC 06/04/21 19:22 100 ML Sodium Chloride 100 ml ONCE ONCE IV 06/04/21 19:15 06/04/21 19:16 DC 06/04/21 19:22 80 ML Vital Signs/I&O 06/04/21 06/04/21 15:54 20:33 Temp 36.8 Pulse 70 64 Resp 16 16 B/P (MAP) 113/67 (82) 100/84 Pulse Ox 98 Blood Pressure Mean: 82 Progress Progress Note : Progress Note GIVEN IV FLUIDS, ZOFRAN, TORADOL, PROTONIX--SYMPTOMS IMPROVED LAB SPECIMEN NOTED TO BE VERY LIPEMIC, AND DISCUSSED WITH AUTOMOTIVE LUBE TECHNICIAN--IS SUSPECTED THAT ELEVATED POTASSIUM IS FALSELY ELEVATED DUE TO VERY LIPEMIC SPECIMEN. PT DENIES ANY MISSED DOSES OF MEDICATIONS WILL WRITE RX'S FOR ALL OF PT'S MEDICATIONS TO ENSURE THAT HE WILL HAVE MEDICATIONS AVAILABLE TO HIM NO DETERIORATION IN PT'S CONDITION DURING ER STAY Initial ECG Impression Date: Jun 04, 2021 Initial ECG Impression Time: 18:41 Initial ECG Rate: 53 Initial ECG Rhythm: Normal Sinus Diagnostic Imaging Comments ABDOMEN XRAYS-PER RADIOLOGIST REPORT IMPRESSION: No acute abnormality in the chest or abdomen. CT ABDOMEN/PELVIS--PER RADIOLOGIST REPORT AT 1943 IMPRESSION: 1. No acute abnormality in the abdomen or pelvis. 2. Hepatic steatosis. Reviewed: Reviewed by Me Departure Communication (Admissions) 1954--SPOKE WITH DR. KIRBY, PT DOES NOT MEET ADMIT CRITERIA AT THIS TIME. WILL SEND HOME ON NO CARB DIET, TAKE FLUIDS, AND TAKE HIS TRIGLYCERIDE MEDICATIONS EVERY DAY. Impression Primary Impression: Left sided abdominal pain Additional Impressions: Hypertriglyceridemia Hyponatremia Uncontrolled diabetes mellitus Disposition: 01 HOME, SELF-CARE Condition: Improved Departure-Patient Inst. Referrals: NO,LOCAL PHYSICIAN (PCP) Primary Care Physician MULUGETA SILVA (Family) Primary Care Physician Patient Instructions: DIABETES, High Blood Sugar, Adult ED, High Triglycerides, How to Keep Track of Your Blood Sugar, How to Prevent High Blood Sugar Emergencies in Diabetes Add. Discharge Instructions: DO NOT MISS DOSES OF ANY OF YOUR MEDICATIONS--ESPECIALLY YOUR ATORVASTATIN AND FENOFIBRATE, WELL YOUR DIABETES MEDICATION CHECK YOUR BLOOD SUGAR 3-4 TIMES A DAY--BEFORE MEALS AND AT BEDTIME LOTS OF CLEAR LIQUIDS NO CARBOHYDRATES OF ANY KIND!!!!--NO SUGAR, NO STARCHES FOLLOW UP WITH [facility] IN 1-2 DAYS FOR FURTHER CARE All discharge instructions reviewed with patient and/or family. Voiced understanding. Scripts Glipizide (Glipizide) 5 Mg Tablet 5 MG PO BID, #60 TAB Prov: VALERIEJANINE K DO 06/04/21 Metformin HCl (Metformin HCl) 500 Mg Tablet 500 MG PO BID, #60 TAB Prov: VALERIEJANINE K DO 06/04/21 Fenofibrate Nanocrystallized (Fenofibrate) 145 Mg Tablet 145 MG PO DAILY, #30 TAB Prov: VALERIE,JANINE K DO 06/04/21 Atorvastatin Calcium (Atorvastatin Calcium) 20 Mg Tablet 20 MG PO DAILY, #30 TAB Prov: VALERIEJANINE K DO 06/04/21 Ondansetron (Ondansetron Odt) 4 Mg Tab.rapdis 4 MG PO Q4H for Nausea/Vomiting, #10 TAB Prov: VALERIEJANINE K DO 06/04/21 VALERIEJANINE K DO Jun 04, 2021 17:56
[2021-06-04 17:57] LABS: ALBUMIN 4.2 GM/DL (3.2-4.5)
[2021-06-04 18:00] LABS: TOTAL PROTEIN 12.6 GM/DL (6.4-8.2)
[2021-06-04] MEDS ORDERED: ONDANSETRON 4 MG/2 ML (SDV) Z0FRAN IVP ONE (18:00)
[2021-06-04 18:01] LABS: BILIRUBIN,TOTAL 0.6 MG/DL (0.1-1.0)
[2021-06-04 18:03] LABS: CREATININE SERUM 1.03 MG/DL (0.60-1.30)
[2021-06-04 18:06] LABS: MAGNESIUM 2.1 MG/DL (1.6-2.4)
[2021-06-04 18:26] LABS: BILIRUBIN,URINE NEGATIVE (NEGATIVE); CLARITY,URINE CLEAR; COLOR,URINE YELLOW; GLUCOSE, URINE (UA) 3+ (NEGATIVE); KETONES,URINE NEGATIVE (NEGATIVE); LEUKOCYTE ESTERASE ,URINE NEGATIVE (NEGATIVE); NITRITE,URINE NEGATIVE (NEGATIVE); PROTEIN,URINE NEGATIVE (NEGATIVE)
[2021-06-04] MEDS ORDERED: PANTOPRAZOLE 40 MG (PROTONIX) VIAL IV ONE (18:30)
[2021-06-04] MEDS ORDERED: KETOROLAC 30 MG/ML VIAL IVP ONE (18:30)
[2021-06-04 18:32] LABS: BACTERIA,URINE NEGATIVE /HPF; SQUAMOUS EPITHELIAL CELL,UR RARE /HPF; WBC,URINE RARE /HPF
[2021-06-04 18:39] LABS: CHOLESTEROL 247 MG/DL (< 200)
[2021-06-04 18:40] LABS: HDL CHOLESTEROL < 15 MG/DL (40-60)
[2021-06-04 19:03] LABS: TRIGLYCERIDES 2436 MG/DL (<150)
[2021-06-04] MEDS ORDERED: HOLD METFORMIN - RECEIVED CONTRAST 20 ML VIAL IV SCH (19:15)
[2021-06-04] MEDS ORDERED: NS 100 ML (IVPB) BAG IV ONE (19:15)
[2021-06-04] MEDS ORDERED: IOHEXOL 350 MG/ML 100 ML (OMNIPAQUE 350) VIAL IV ONE (19:15)
--- NOTE | 2021-06-04 19:41 | Diagnostic Imaging Report ---
EXAMINATION: CT abdomen and pelvis with intravenous contrast. TECHNIQUE: Multiple contiguous axial images were obtained through the abdomen and pelvis after the uneventful administration of intravenous contrast. All CT scans use one or more of the following dose optimizing techniques: automated exposure control, MA and/or KvP adjustment based on patient size and exam type or iterative reconstruction. HISTORY: LUQ PAIN COMPARISON: 11/08/2019 FINDINGS: Lung bases: The lung bases are clear. Solid organs: There is diffuse hypoattenuation of the liver compatible with hepatic steatosis. Stable hypoattenuating lesion within hepatic segment V. The gallbladder is normal. There is no biliary ductal dilation. Pancreas is normal. Spleen is normal. Adrenal glands are normal. The kidneys are normal without hydronephrosis. Bowel: There are multiple appendicoliths within a normally sized appendix. There is no bowel obstruction. Peritoneum: There is no intraperitoneal free fluid or free air. No suspicious lymphadenopathy. Vasculature: Normal without aneurysm. Musculoskeletal: Degenerative changes of the spine without suspicious osseous lesion or compression fracture. Pelvis: The prostate gland is normal. The urinary bladder is normal. IMPRESSION: 1. No acute abnormality in the abdomen or pelvis. 2. Hepatic steatosis. Dictated by: Dictated on workstation # [id number]
--- NOTE | 2021-06-04 19:44 | Diagnostic Imaging Report ---
EXAMINATION: Abdominal series and chest radiograph HISTORY: abd pain COMPARISON: CT abdomen and pelvis 06/04/2021 FINDINGS: Heart size and pulmonary vasculature are normal. The lungs are clear without consolidation, pleural effusion, or pneumothorax. The osseous structures are intact. There is moderate amount of gas and stool throughout the colon. Nonobstructive bowel gas pattern. No radiopaque foreign body. The osseous structures are intact. Contrast from prior CT is seen within the renal collecting systems and ureter. Contrast is seen within the urinary bladder. IMPRESSION: No acute abnormality in the chest or abdomen. Dictated by: Dictated on workstation # [id number]
[2021-06-04] MEDS ORDERED: inSUlin (REGULAR) HUMAN 1 UNIT/0.01 ML (CHARGE PER UNIT) IV ONE (19:45)
[2021-06-04] MEDS ORDERED: NS IV 1000 ML 1,000 ML IV SCH (19:45)
[2021-06-04] MEDS ORDERED: ONDA4TAB11 PO (20:05)
[2021-06-04] MEDS ORDERED: FENO145T26 PO (20:07)
[2021-06-04] MEDS ORDERED: ATOR20TA66 PO (20:07)
[2021-06-04] MEDS ORDERED: GLIP5TAB13 PO (20:08)
[2021-06-04] MEDS ORDERED: METF-397 PO (20:08)
[2021-06-04 20:33] VITALS: BP 100/84
== END 2021-06-04 20:35 | disposition home or self-care (01) ==
LOC: EDUNIT# 13:45 → ER 13:46
DX: R10.12 Left upper quadrant pain (principal); E78.1 Pure hyperglyceridemia; E87.1 Hypo-osmolality and hyponatremia; E11.65 Type 2 diabetes mellitus with hyperglycemia; Z79.84 Long term (current) use of oral hypoglycemic drugs; I10 Essential (primary) hypertension
CPT/HCPCS: 36415; 74022; 74177; 80053; 80061; 81000; 82150; 82947; 83690; 83735; 84484; 85025

== ENCOUNTER 2021-11-23 13:13 | Inpatient (IN) | payer BC ==
[~2021-11-23] VITALS: Ht 160 cm; Wt 81.8 kg
[~2021-11-23 13:13] MED LIST changes: +ATOR20TA66 PO; +FENO145T26 PO; +GLIP5TAB13 PO; -LISI2.5T; +LISI2.5T13; +ONDA4TAB11 PO
[2021-11-23] MEDS ORDERED: fentaNYL INJ 100 MCG/2 ML AMP IVP ONE (13:30)
[2021-11-23] MEDS ORDERED: ONDANSETRON 4 MG/2 ML (SDV) Z0FRAN IVP ONE (13:30)
--- NOTE | 2021-11-23 13:33 | ED Abdominal Pain ---
General Chief Complaint: Abdominal/GI Problems Stated Complaint: ABD PAIN, HX PANCREATITIS Source of Information: Patient Exam Limitations: No Limitations History of Present Illness Date Seen by Provider: Nov 23, 2021 Time Seen by Provider: 13:32 Initial Comments To ER by private vehicle with a 48-hour history of epigastric abdominal pain with nausea. History of pancreatitis about 3 years ago. These symptoms began on Monday 2 days ago. No known cause. He is diabetic takes metformin and glipizide. Does not drink alcohol or smoke cigarettes.He has a history of a prescription for atorvastatin and fenofibrate but I cannot tell when these were filled last. Timing/Duration: 1-2 Days Severity/Quality: Moderate Location: Epigastric Radiation: No Radiation Activities at Onset: None Associated Symptoms: Nausea/Vomiting Allergies and Home Medications Allergies Coded Allergies: No Known Drug Allergies (Unverified , 11/08/19) Patient Home Medication List Home Medication List Reviewed: Yes Atorvastatin Calcium (Atorvastatin Calcium) 20 Mg Tablet, (Reported) Entered as Reported by: DENNISE ALVARADO on 11/08/191847 Atorvastatin Calcium (Atorvastatin Calcium) 20 Mg Tablet, 20 MG PO DAILY Prescribed by: JANINE PADILLA on 06/04/212006 Fenofibrate Nanocrystallized (Fenofibrate) 145 Mg Tablet, (Reported) Entered as Reported by: DENNISE ALVARADO on 11/08/191847 Fenofibrate Nanocrystallized (Fenofibrate) 145 Mg Tablet, 145 MG PO DAILY Prescribed by: JANINE PADILLA on 06/04/212006 Glipizide (Glipizide) 5 Mg Tablet, (Reported) Entered as Reported by: SULLY CONDON on 11/08/191943 Glipizide (Glipizide) 5 Mg Tablet, 5 MG PO BID Prescribed by: JAINNE PADILLA on 06/04/212007 Lisinopril (Lisinopril) 2.5 Mg Tablet, (Reported) Entered as Reported by: DENNISE ALVARADO on 11/08/191847 Metformin HCl (Metformin HCl) 500 Mg Tablet, 1,000 MG PO BID, (Reported) Entered as Reported by: DENNISE ALVARADO on 11/08/191847 Metformin HCl (Metformin HCl) 500 Mg Tablet, 500 MG PO BID Prescribed by: JANINE PADILLA on 06/04/212007 Ondansetron (Ondansetron Odt) 4 Mg Tab.rapdis, 4 MG PO Q4H Prescribed by: JANINE PADILLA on 06/04/212004 Review of Systems Review of Systems Constitutional: see HPI EENTM: No Symptoms Reported Respiratory: No Symptoms Reported Cardiovascular: See HPI Gastrointestinal: See HPI, Abdominal Pain, Nausea Genitourinary: No Symptoms Reported Musculoskeletal: no symptoms reported Skin: no symptoms reported Psychiatric/Neurological: No Symptoms Reported Endocrine: No Symptoms Reported Hematologic/Lymphatic: No Symptoms Reported Past Prvnkhp-Abdnxa-Kpmuno Hx Seasonal Allergies Seasonal Allergies: No Past Medical History Surgery/Hospitalization HX: RIGHT INGUINAL HERNIA REPAIR Surgeries: Yes (HERNIA) Abdominal Respiratory: No Cardiac: Yes High Cholesterol, Hypertension Neurological: No Genitourinary: No Gastrointestinal: Yes Pancreatitis Musculoskeletal: No Endocrine: Yes Diabetes, Non-Insulin dep HEENT: No Cancer: No Psychosocial: No Integumentary: No Family Medical History Chronic lymphoid leukemia G8 SISTER, Onset:Adolescence Physical Exam Vital Signs Vital Signs - First Documented 11/23/21 13:34 Temp 36.5 Pulse 81 Resp 18 B/P (MAP) 131/88 (102) Pulse Ox 96 O2 Delivery Room Air Capillary Refill : Height/Weight/BMI Height: '" Weight: lbs. oz. kg; 27.00 BMI Method: General Appearance: WD/WN, no apparent distress, other (Appears uncomfortable) Neck: non-tender, full range of motion Respiratory: no respiratory distress, no accessory muscle use Cardiovascular: regular rate, rhythm, no murmur Gastrointestinal: normal bowel sounds, soft, tenderness Extremities: normal range of motion, non-tender, normal inspection Neurologic/Psychiatric: alert, normal mood/affect, oriented x 3 Skin: normal color, warm/dry Progress/Results/Core Measures Results/Orders Lab Results Laboratory Tests Test 11/23/21 13:27 Range/Units White Blood Count 8.0 4.3-11.0 10^3/uL Red Blood Count 6.55 H 4.30-5.52 10^6/uL Hemoglobin 18.8 H 13.3-17.7 g/dL Hematocrit 49 40-54 % Mean Corpuscular Volume 75 L 80-99 fL Mean Corpuscular Hemoglobin 29 25-34 pg Mean Corpuscular Hemoglobin Concent 38 H 32-36 g/dL Red Cell Distribution Width 13.4 10.0-14.5 % Platelet Count 148 130-400 10^3/uL Mean Platelet Volume 12.1 9.0-12.2 fL Immature Granulocyte % (Auto) 1 % Neutrophils (%) (Auto) 59 42-75 % Lymphocytes (%) (Auto) 22 12-44 % Monocytes (%) (Auto) 7 0-12 % Eosinophils (%) (Auto) 11 H 0-10 % Basophils (%) (Auto) 1 0-10 % Neutrophils # (Auto) 4.7 1.8-7.8 10^3/uL Lymphocytes # (Auto) 1.8 1.0-4.0 10^3/uL Monocytes # (Auto) 0.6 0.0-1.0 10^3/uL Eosinophils # (Auto) 0.9 H 0.0-0.3 10^3/uL Basophils # (Auto) 0.1 0.0-0.1 10^3/uL Immature Granulocyte # (Auto) 0.1 0.0-0.1 10^3/uL Sodium Level 127 L 135-145 MMOL/L Potassium Level 6.2 H 3.6-5.0 MMOL/L Chloride Level 95 L 98-107 MMOL/L Carbon Dioxide Level 18 L 21-32 MMOL/L Anion Gap 14 5-14 MMOL/L Blood Urea Nitrogen 17 7-18 MG/DL Creatinine 1.17 0.60-1.30 MG/DL Estimat Glomerular Filtration Rate 70 BUN/Creatinine Ratio 15 Glucose Level 310 H 70-105 MG/DL Calcium Level 9.4 8.5-10.1 MG/DL Corrected Calcium 9.2 8.5-10.1 MG/DL Total Bilirubin 0.5 0.1-1.0 MG/DL Aspartate Amino Transf (AST/SGOT) 88 H 5-34 U/L Alanine Aminotransferase (ALT/SGPT) 61 H 0-55 U/L Alkaline Phosphatase 82 40-136 U/L Total Protein 14.0 H 6.4-8.2 GM/DL Albumin 4.2 3.2-4.5 GM/DL Triglycerides Level 3874 H <150 MG/DL Cholesterol Level 300 H < 200 MG/DL LDL Cholesterol Direct 74 1-129 MG/DL VLDL Cholesterol 5-40 MG/DL HDL Cholesterol 16 L 40-60 MG/DL Lipase 6796 H 8-78 U/L My Orders Orders - PELAEZ,PETER J INTAKE MANAGER Cbc With Automated Diff (11/23/21 13:23) Comprehensive Metabolic Panel (11/23/21 13:23) Ua Culture If Indicated (11/23/21 13:23) Ed Iv/Invasive Line Start (11/23/21 13:23) Lipase (11/23/21 13:23) Ct Abdomen/Pelvis W (11/23/21 13:29) Ondansetron Injection (Zofran Injectio (11/23/21 13:30) Fentanyl Inj (Sublimaze Injection) (11/23/21 13:30) Lactated Ringers (Lr 1000 Ml Iv Solution (11/23/21 13:30) Lipid Panel (11/23/21 13:34) Iohexol Injection (Omnipaque 350 Mg/Ml 1 (11/23/21 13:45) Received Contrast (Hold Metformin- Contr (11/23/21 13:45) Ns (Ivpb) (Sodium Chloride 0.9% Ivpb Bag (11/23/21 13:45) Ekg Tracing (11/23/21 13:46) Lactated Ringers (Lr 1000 Ml Iv Solution (11/23/21 14:15) Hydromorphone Injection (Dilaudid Inject (11/23/21 14:15) Medications Given in ED Current Medications Medications Dose Ordered Sig/Kaylan Route Start Time Stop Time Status Last Admin Dose Admin Fentanyl Citrate 50 mcg ONCE ONCE IVP 11/23/21 13:30 11/23/21 13:31 DC 11/23/21 13:47 50 MCG Hydromorphone HCl 0.5 mg ONCE ONCE IV 11/23/21 14:15 11/23/21 14:16 DC 11/23/21 14:14 0.5 MG Iohexol 100 ml ONCE ONCE IV 11/23/21 13:45 11/23/21 13:46 DC 11/23/21 13:55 100 ML Ondansetron HCl 8 mg ONCE ONCE IVP 11/23/21 13:30 11/23/21 13:31 DC 11/23/21 13:44 8 MG Sodium Chloride 100 ml ONCE ONCE IV 11/23/21 13:45 11/23/21 13:46 DC 11/23/21 13:55 80 ML Vital Signs/I&O 11/23/21 13:34 Temp 36.5 Pulse 81 Resp 18 B/P (MAP) 131/88 (102) Pulse Ox 96 O2 Delivery Room Air Departure Communication (Admissions) 1348-He does not have any alarming features such as fever, leukocytosis, tachycardia or hypotension. He does have a hyponatremia, likely pseudohyponatremia as I expect his lipids will be quite elevated, those are still pending. Impression Primary Impression: Acute pancreatitis Additional Impression: Hypertriglyceridemia Disposition: ADMITTED INPATIENT Condition: Stable Admissions Decision to Admit Reason: Admit from ER (General) Decision to Admit/Date: Nov 23, 2021 Time/Decision to Admit Time: 13:38 Departure-Patient Inst. Referrals: [facility] (PCP) Primary Care Physician MULUGETA SILVA (Family) Primary Care Physician TOSHA PELAEZ APRN Nov 23, 2021 13:33
[2021-11-23 13:34] LABS: BASOPHILS # (AUTO) 0.1 10^3/uL (0.0-0.1); BASOPHILS % (AUTO) 1 % (0-10); EOSINOPHILS # (AUTO) 0.9 10^3/uL (0.0-0.3); EOSINOPHILS % (AUTO) 11 % (0-10); HEMATOCRIT 49 % (40-54); HEMOGLOBIN 18.8 g/dL (13.3-17.7); LYMPHOCYTES # (AUTO) 1.8 10^3/uL (1.0-4.0); LYMPHOCYTES % (AUTO) 22 % (12-44); MEAN CORPUSCULAR HEMOGLOBIN 29 pg (25-34); MEAN CORPUSCULAR HGB CONC 38 g/dL (32-36); MEAN CORPUSCULAR VOLUME 75 fL (80-99); MEAN PLATELET VOLUME 12.1 fL (9.0-12.2); MONOCYTES # (AUTO) 0.6 10^3/uL (0.0-1.0); MONOCYTES % (AUTO) 7 % (0-12); NEUTROPHILS # (AUTO) 4.7 10^3/uL (1.8-7.8); NEUTROPHILS % (AUTO) 59 % (42-75); PLATELET COUNT 148 10^3/uL (130-400)
[2021-11-23 13:43] LABS: ALBUMIN 4.2 GM/DL (3.2-4.5); POTASSIUM 6.2 MMOL/L (3.6-5.0)
[2021-11-23 13:44] LABS: CALCIUM 9.4 MG/DL (8.5-10.1)
[2021-11-23] MEDS ORDERED: NS 100 ML (IVPB) BAG IV ONE (13:45)
[2021-11-23] MEDS ORDERED: HOLD METFORMIN - RECEIVED CONTRAST 20 ML VIAL IV SCH (13:45)
[2021-11-23] MEDS ORDERED: IOHEXOL 350 MG/ML 100 ML (OMNIPAQUE 350) VIAL IV ONE (13:45)
[2021-11-23] MEDS: LACTATED RINGERS 1,000 ML IV SCH ×2 (13:46→15:46)
[2021-11-23 13:47] LABS: BILIRUBIN,TOTAL 0.5 MG/DL (0.1-1.0)
[2021-11-23 13:49] LABS: CREATININE SERUM 1.17 MG/DL (0.60-1.30)
[2021-11-23 14:14] LABS: HDL CHOLESTEROL 16 MG/DL (40-60)
[2021-11-23 14:15] LABS: CHOLESTEROL 300 MG/DL (< 200)
[2021-11-23] MEDS ORDERED: LACTATED RINGERS 1,000 ML IV SCH (14:15)
[2021-11-23] MEDS ORDERED: HYDROmorphone 2 MG/ML VIAL (DILAUDID) IV ONE ×2 (14:15→16:00)
[2021-11-23 14:18] LABS: TRIGLYCERIDES 3874 MG/DL (<150)
--- NOTE | 2021-11-23 14:23 | Diagnostic Imaging Report ---
EXAMINATION: CT abdomen and pelvis with intravenous contrast. TECHNIQUE: Multiple contiguous axial images were obtained through the abdomen and pelvis after the uneventful administration of intravenous contrast. All CT scans use one or more of the following dose optimizing techniques: automated exposure control, MA and/or KvP adjustment based on patient size and exam type or iterative reconstruction. HISTORY: epigastric pain COMPARISON: 06/04/2021. FINDINGS: Lung bases: The lung bases are clear. Solid organs: There is diffuse hypoattenuation of the liver compatible with hepatic steatosis. Likely focal fatty sparing within hepatic segment IV near the gallbladder. A right hepatic cyst is present. The gallbladder is normal. There is no biliary ductal dilation. There is hypoattenuation seen within the pancreatic tail with surrounding inflammatory stranding. No peripancreatic fluid collection or ductal dilatation. Spleen is normal. Adrenal glands are normal. The kidneys are normal without hydronephrosis. Bowel: The stomach and small bowel are normal without obstruction. The colon is unremarkable. There are multiple stones seen within the appendix. Peritoneum: Peripancreatic inflammatory stranding without loculated fluid collection or free air. No suspicious lymphadenopathy. Vasculature: Normal without aneurysm. Musculoskeletal: Degenerative changes of the spine without suspicious osseous lesion or compression fracture. Pelvis: The prostate gland is normal. The urinary bladder is normal. IMPRESSION: 1. Peripancreatic inflammatory stranding and fullness of the pancreatic tail, concerning for acute appendicitis. Recommend correlation with pancreatic enzymes. There is hypoenhancement seen within the pancreatic tail which does raise concern for necrosis or edema. No peripancreatic fluid collection or ductal dilatation. 2. Hepatic steatosis. Dictated by: Dictated on workstation # [id number]
[2021-11-23] MEDS: NS IV 1000 ML 1,000 ML IV SCH ×2 (16:00→21:29)
[2021-11-23] MEDS ORDERED: NS IV 1000 ML 1,000 ML IV SCH (16:45)
[2021-11-23] MEDS ORDERED: inSUlin (REGULAR) HUMAN 1 UNIT/0.01 ML (CHARGE PER UNIT) IV ONE (16:45)
[2021-11-23] MEDS: ENOXAPARIN 40 MG/0.4 ML (LOVENOX) SYR SC SCH (16:55)
[2021-11-23] MEDS: HYDROmorphone 2 MG/ML VIAL (DILAUDID) IV PRN ×3 (16:55→23:44)
[2021-11-23] MEDS: ONDANSETRON 4 MG/2 ML (SDV) Z0FRAN IVP PRN ×2 (16:55→21:19)
--- NOTE | 2021-11-23 17:29 | Tele-ICU Consult ---
History of Present Illness History of Present Illness Date Seen by Provider: Nov 23, 2021 Time Seen by Provider: 17:28 Date of Admission Allergies and Home Medications Allergies Coded Allergies: No Known Drug Allergies (Unverified , 11/08/19) Home Medications Atorvastatin Calcium 20 Mg Tablet, 20 MG PO DAILY Prescribed by: JANINE PADILLA on 06/04/212006 Fenofibrate Nanocrystallized 145 Mg Tablet, 145 MG PO DAILY Prescribed by: JANINE PADILLA on 06/04/212006 Glipizide 5 Mg Tablet, 5 MG PO BID Prescribed by: JANINE PADILLA on 06/04/212007 Metformin HCl 500 Mg Tablet, 1,000 MG PO BID, (Reported) Metformin HCl 500 Mg Tablet, 500 MG PO BID Prescribed by: JANINE PADILLA on 06/04/212007 Ondansetron 4 Mg Tab.rapdis, 4 MG PO Q4H Prescribed by: JANINE PADILLA on 06/04/212004 Past Medical/Social/Family Hx Patient Social History Tobacco Use?: No Smoking Status: Never a Smoker Smokeless Tobacco Frequency: Never a User Substance use?: No Alcohol Use?: No Pt stated abuse/neglect: No Immunizations Up To Date Influenza Vaccine Up-to-Date: Yes; Up-to-Date First/Initial COVID19 Vaccinat: AUG Second COVID19 Vaccination Louis: NOV Current Status Primary Language: Taiwanese Preferred Spoken Language: Taiwanese Implanted or Applied Medical D: None Review of Systems Constitutional: see HPI Focused Exam Height, Weight, BMI Height: '" Weight: lbs. oz. kg; 31.95 BMI Method: Exam Exam Patient acknowledged, consented, and participated in this virtual visit which was conducted using real time audio/video Vital Signs Date Time Temp Pulse Resp B/P (MAP) Pulse Ox O2 Delivery O2 Flow Rate FiO2 11/23/21 16:46 35.8 70 14 112/79 96 Room Air 11/23/21 16:45 65 15 112/79 97 Room Air 11/23/21 16:38 79 11/23/21 16:19 67 18 102/72 98 Room Air 11/23/21 13:34 36.5 81 18 131/88 (102) 96 Room Air Height & Weight Height: '" Weight: lbs. oz. kg; 31.95 BMI Method: General Appearance: No Apparent Distress Gastrointestinal: normal bowel sounds, soft, tenderness Results Lab Laboratory Tests 11/23/21 13:27 Assessment/Plan Assessment/Plan (Tele-ICU Physician , consultation) Available chart/ vitals / labs / Images reviewed H&P is from ER notes Patient's information available about PMH, Shx, Fhx allergy reviewed in EMR. ROS as per chart and RN report Now in ICU, hemodynamically stable Video assessment done using teleICU camera, rest of exam as per RN Discussed with RN. Consultants: Hospital course: 11/23- TGL pnancreatitis , insulin gtt A/P Hypertriglyceridemia induced pancreatitis - hydration - Insulin gtt with goal for TG below 500 mg/dL -glucose levels q1h - if glucose level 150 -200 mg/dL - start D5 gtt - monitor triglycerides q12h -IF patient's triglycerides do not improve with insulin drip. ( or calc clinically decompensates - will have to consider plasmapheresis -monitor for hypocalcemia -pain control DM - close f/up BS on insulin gtt CT - hypoenhancement seen within the pancreatic tail which does raise concern for necrosis or edema - follow closely Lines : (Central Line Necessity Reviewed) Pappas: OG: Nutrition: Analgesia: Anxiety/ delirium VTE Prophylaxis: christiana 40 Stress Ulcer Prophylaxis: Glycemic Control: Plans in collaboration with bedside consultants and IM MDs. Discussed with RN to reach out if any questions or concerns A total of 33 minutes of critical care time was devoted to this patient today, required to treat and/or prevent further deterioration of critical care con dition ( as above ) . TAMIE DELGADO MD Nov 23, 2021 17:29
[2021-11-23 17:37] LABS: POTASSIUM 4.5 MMOL/L (3.6-5.0)
[2021-11-23 17:39] LABS: CALCIUM 8.7 MG/DL (8.5-10.1)
[2021-11-23 17:43] LABS: CREATININE SERUM 0.92 MG/DL (0.60-1.30)
[2021-11-24] MEDS: ONDANSETRON 4 MG/2 ML (SDV) Z0FRAN IVP PRN ×2 (01:47→09:53)
[2021-11-24] MEDS: HYDROmorphone 2 MG/ML VIAL (DILAUDID) IV PRN ×6 (01:50→20:51)
[2021-11-24] MEDS: NS IV 1000 ML 1,000 ML IV SCH ×3 (02:18→21:02)
--- NOTE | 2021-11-24 03:28 | Progress Note ---
Standard Progress Note Progress Notes/Assess & Plan Date Seen by a Provider: Nov 24, 2021 Time Seen by a Provider: 03:27 Progress/Assessment & Plan called for IV D5W, will order @ 125 mL/h MD BLAKE Santos JOSEPH K MD Nov 24, 2021 03:28
[2021-11-24] MEDS ORDERED: D5 NS 1000 ML IV SOLUTION 1,000 ML IV ONE (03:30)
[2021-11-24] MEDS ORDERED: D5 NS 1000 ML IV SOLUTION 1,000 ML IV SCH (03:30)
[2021-11-24 04:54] LABS: BASOPHILS % (AUTO) 0 % (0-10); HEMOGLOBIN 16.2 g/dL (13.3-17.7); LYMPHOCYTES % (AUTO) 10 % (12-44)
[2021-11-24 04:57] LABS: EOSINOPHILS # (AUTO) 0.2 10^3/uL (0.0-0.3); EOSINOPHILS % (AUTO) 2 % (0-10); HEMATOCRIT 47 % (40-54); LYMPHOCYTES # (AUTO) 0.9 10^3/uL (1.0-4.0); MEAN CORPUSCULAR HEMOGLOBIN 26 pg (25-34); MEAN CORPUSCULAR HGB CONC 35 g/dL (32-36); MEAN CORPUSCULAR VOLUME 75 fL (80-99); MEAN PLATELET VOLUME 11.9 fL (9.0-12.2); MONOCYTES # (AUTO) 0.4 10^3/uL (0.0-1.0); MONOCYTES % (AUTO) 5 % (0-12); NEUTROPHILS # (AUTO) 7.2 10^3/uL (1.8-7.8); NEUTROPHILS % (AUTO) 82 % (42-75); PLATELET COUNT 101 10^3/uL (130-400); WHITE BLOOD COUNT 8.8 10^3/uL (4.3-11.0)
[2021-11-24 05:13] LABS: ALBUMIN 3.2 GM/DL (3.2-4.5); POTASSIUM 3.8 MMOL/L (3.6-5.0)
[2021-11-24 05:14] LABS: CALCIUM 8.1 MG/DL (8.5-10.1)
[2021-11-24 05:16] LABS: TOTAL PROTEIN 7.9 GM/DL (6.4-8.2)
[2021-11-24 05:17] LABS: BILIRUBIN,TOTAL 0.7 MG/DL (0.1-1.0)
[2021-11-24 05:19] LABS: CREATININE SERUM 0.77 MG/DL (0.60-1.30)
[2021-11-24] MEDS: POTASSIUM CL 10MEQ/50ML IVPB 50 ML IV SCH (07:17)
--- NOTE | 2021-11-24 09:54 | Tele-ICU Progress Note ---
Subjective Date Seen by a Provider: Nov 24, 2021 Time Seen by a Provider: 09:54 Subjective/Events-last exam Patient admitted with acute pancreatitis secondary to markedly elevated triglycerides which are being treated with IV insulin. In view of the blood sugar getting low he is started D5W. Currently his pain is moderately controlled. No nausea or vomiting present. Video visit made and discussed with the patient and his Sepsis Event Evaluation Height, Weight, BMI Height: '" Weight: lbs. oz. kg; 31.95 BMI Method: Exam Exam Patient acknowledged, consented, and participated in this virtual visit which was conducted using real time audio/video Vital Signs Date Time Temp Pulse Resp B/P (MAP) Pulse Ox O2 Delivery O2 Flow Rate FiO2 11/24/21 08:00 36.4 11/24/21 07:00 88 11/24/21 06:13 96 94 100/66 93 Room Air 11/24/21 05:00 101 14 96/71 93 Room Air 11/24/21 04:00 101 13 103/63 91 Room Air 11/24/21 04:00 Room Air 11/24/21 04:00 36.6 11/24/21 03:00 92 12 112/81 93 Room Air 11/24/21 02:00 98 15 117/85 93 Room Air 11/24/21 01:00 90 13 108/67 94 Room Air 11/24/21 01:00 90 11/24/21 00:00 Room Air 11/24/21 00:00 36.6 11/24/21 00:00 90 15 101/72 93 Room Air 11/23/21 23:00 81 14 100/74 93 Room Air 11/23/21 22:18 82 17 104/80 95 Room Air 11/23/21 21:00 84 14 93 Room Air 11/23/21 20:00 80 12 94 Room Air 11/23/21 20:00 Room Air 11/23/21 19:40 36.0 11/23/21 19:23 88 14 111/77 94 Room Air 11/23/21 19:00 78 11/23/21 18:00 Room Air 11/23/21 18:00 68 11 108/77 95 Room Air 11/23/21 17:00 71 11 107/74 96 Room Air 11/23/21 16:46 35.8 70 14 112/79 96 Room Air 11/23/21 16:45 65 15 112/79 97 Room Air 11/23/21 16:38 79 11/23/21 16:19 67 18 102/72 98 Room Air 11/23/21 13:34 36.5 81 18 131/88 (102) 96 Room Air I & O 11/24/21 07:00 Intake Total 2300 ml Output Total 2000 ml Balance 300 ml Height & Weight Height: '" Weight: lbs. oz. kg; 31.95 BMI Method: General Appearance: No Apparent Distress Gastrointestinal: normal bowel sounds, soft, tenderness Other comments PE PER ATTENDING PHYSICIAN Results Lab Laboratory Tests 11/23/21 13:27 11/23/21 17:18 11/24/21 04:16 Assessment/Plan Assessment/Plan 1. Acute pancreatitis secondary to hypertriglyceridemia 2. Severe hypertriglyceridemia 3. Hyperglycemia probably due to underlying diabetes 4. Dehydration Recommendations 1. Continue insulin drip as well as a D5W to control blood sugar as well as triglycerides. 2. Continue pain management 3. Ulcer prophylaxis. 4. We will repeat triglycerides and lipase in AM. 5. DVT prophylaxis Critical Care: Critically Ill Patient Time spent with patient (mins): 25 GAVIN SHERMAN MD Nov 24, 2021 09:54
[2021-11-24] MEDS: MAGNESIUM 1 GM/100 ML IVPB 100 ML IV SCH (11:34)
[2021-11-24] MEDS: ENOXAPARIN 40 MG/0.4 ML (LOVENOX) SYR SC SCH (16:38)
[2021-11-24] MEDS ORDERED: NS IV 1000 ML 1,000 ML IV SCH (18:00)
--- NOTE | 2021-11-24 19:52 | History & Physical ---
HPI History of Present Illness: 36 yo M that presented with severe abdominal pain. Patient states that he started having pain on Monday. Patient found to have extremely high TG. Patient has never had a similar episode. States that he has DM and DM runs in his family but he does not remember his last A1c. This AM he is still having pain but it is much improved. Source: patient, spouse Exam Limitations: no limitations Date seen by provider: Nov 24, 2021 Time Seen by Provider: 09:40 Attending Physician Reema Arellano MD PCP [place] Consult Date of Admission Nov 23, 2021 at 15:30 Home Medications Home Medications Reviewed patient Home Medication Reconciliation performed by pharmacy medication reconciliations maintenance mechanic technician and/or nursing. Patients Allergies have been reviewed. 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[employer] Past Medical History IDDM HTN HLD Family Medical History Significant Family History: Diabetes Family History: Chronic lymphoid leukemia G8 SISTER, Onset:Adolescence Review of Systems ([facility]) Constitutional: No chills, No fever, No malaise Respiratory: no symptoms reported; No cough, No dyspnea on exertion, No short of breath Cardiovascular: no symptoms reported; No chest pain, No edema, No palpitations Gastrointestinal: abdominal pain; No constipation, No diarrhea; loss of eddie etite, nausea; No vomiting Genitourinary: no symptoms reported; No dysuria, No frequency Musculoskeletal: no symptoms reported; No back pain, No joint pain, No muscle pain Skin: no symptoms reported; No lesions, No rash Psychiatric/Neurological: No Symptoms Reported Reviewed Test Results Reviewed Test Results Lab Laboratory Tests Test 11/23/21 20:00 11/23/21 21:03 11/23/21 22:13 11/23/21 23:07 Range/Units Glucometer 201 H 227 H 225 H 201 H 70-110 MG/DL Test 11/24/21 00:18 11/24/21 01:11 11/24/21 02:20 11/24/21 03:14 Range/Units Glucometer 234 H 233 H 171 H 103 70-110 MG/DL Test 11/24/21 04:11 11/24/21 04:16 11/24/21 05:11 11/24/21 06:13 Range/Units Glucometer 147 H 99 112 H 70-110 MG/DL White Blood Count 8.8 4.3-11.0 10^3/uL Red Blood Count 6.23 H 4.30-5.52 10^6/uL Hemoglobin 16.2 13.3-17.7 g/dL Hematocrit 47 40-54 % Mean Corpuscular Volume 75 L 80-99 fL Mean Corpuscular Hemoglobin 26 25-34 pg Mean Corpuscular Hemoglobin Concent 35 32-36 g/dL Red Cell Distribution Width 13.0 10.0-14.5 % Platelet Count 101 L 130-400 10^3/uL Mean Platelet Volume 11.9 9.0-12.2 fL Immature Granulocyte % (Auto) 1 % Neutrophils (%) (Auto) 82 H 42-75 % Lymphocytes (%) (Auto) 10 L 12-44 % Monocytes (%) (Auto) 5 0-12 % Eosinophils (%) (Auto) 2 0-10 % Basophils (%) (Auto) 0 0-10 % Neutrophils # (Auto) 7.2 1.8-7.8 10^3/uL Lymphocytes # (Auto) 0.9 L 1.0-4.0 10^3/uL Monocytes # (Auto) 0.4 0.0-1.0 10^3/uL Eosinophils # (Auto) 0.2 0.0-0.3 10^3/uL Basophils # (Auto) 0.0 0.0-0.1 10^3/uL Immature Granulocyte # (Auto) 0.1 0.0-0.1 10^3/uL Percent Immature Platelet Fraction 7.6 0.0-7.6 % Sodium Level 134 L 135-145 MMOL/L Potassium Level 3.8 3.6-5.0 MMOL/L Chloride Level 105 98-107 MMOL/L Carbon Dioxide Level 14 L 21-32 MMOL/L Anion Gap 15 H 5-14 MMOL/L Blood Urea Nitrogen 13 7-18 MG/DL Creatinine 0.77 0.60-1.30 MG/DL Estimat Glomerular Filtration Rate 114 BUN/Creatinine Ratio 17 Glucose Level 131 H 70-105 MG/DL Calcium Level 8.1 L 8.5-10.1 MG/DL Corrected Calcium 8.7 8.5-10.1 MG/DL Magnesium Level 1.7 1.6-2.4 MG/DL Total Bilirubin 0.7 0.1-1.0 MG/DL Aspartate Amino Transf (AST/SGOT) 32 5-34 U/L Alanine Aminotransferase (ALT/SGPT) 29 0-55 U/L Alkaline Phosphatase 51 40-136 U/L Total Protein 7.9 6.4-8.2 GM/DL Albumin 3.2 3.2-4.5 GM/DL Triglycerides Level 1349 H <150 MG/DL Test 11/24/21 07:27 11/24/21 08:42 11/24/21 09:45 11/24/21 11:18 Range/Units Glucometer 89 84 82 135 H 70-110 MG/DL Test 11/24/21 14:54 11/24/21 15:44 11/24/21 16:56 Range/Units Glucometer 89 128 H 70-110 MG/DL Triglycerides Level 591 #H <150 MG/DL Physical Exam-([facility]) Physical Exam Vital Signs VS - Last 72 Hours, by Label 11/23/21 11/23/21 11/23/21 11/23/21 13:34 16:19 16:38 16:45 Temp 36.5 Pulse 81 67 79 65 Resp 18 18 15 B/P (MAP) 131/88 (102) 102/72 112/79 Pulse Ox 96 98 97 O2 Delivery Room Air Room Air Room Air 11/23/21 11/23/21 11/23/21 11/23/21 16:46 17:00 18:00 18:00 Temp 35.8 Pulse 70 71 68 Resp 14 11 11 B/P (MAP) 112/79 107/74 108/77 Pulse Ox 96 96 95 O2 Delivery Room Air Room Air Room Air Room Air 11/23/21 11/23/21 11/23/21 11/23/21 19:00 19:23 19:40 20:00 Temp 36.0 Pulse 78 88 Resp 14 B/P (MAP) 111/77 Pulse Ox 94 O2 Delivery Room Air Room Air 11/23/21 11/23/21 11/23/21 11/23/21 20:00 21:00 22:18 23:00 Pulse 80 84 82 81 Resp 12 14 17 14 B/P (MAP) 104/80 100/74 Pulse Ox 94 93 95 93 O2 Delivery Room Air Room Air Room Air Room Air 11/24/21 11/24/21 11/24/21 11/24/21 00:00 00:00 00:00 01:00 Temp 36.6 Pulse 90 90 Resp 15 B/P (MAP) 101/72 Pulse Ox 93 O2 Delivery Room Air Room Air 11/24/21 11/24/21 11/24/21 11/24/21 01:00 02:00 03:00 04:00 Temp 36.6 Pulse 90 98 92 Resp 13 15 12 B/P (MAP) 108/67 117/85 112/81 Pulse Ox 94 93 93 O2 Delivery Room Air Room Air Room Air 11/24/21 11/24/21 11/24/21 11/24/21 04:00 04:00 05:00 06:13 Pulse 101 101 96 Resp 13 14 94 B/P (MAP) 103/63 96/71 100/66 Pulse Ox 91 93 93 O2 Delivery Room Air Room Air Room Air Room Air 11/24/21 11/24/21 11/24/21 11/24/21 07:00 07:00 08:00 08:00 Temp 36.4 Pulse 88 86 88 Resp 13 18 B/P (MAP) 102/70 103/67 Pulse Ox 94 93 O2 Delivery Room Air Room Air 11/24/21 11/24/21 11/24/21 11/24/21 08:21 09:00 10:00 11:00 Pulse 80 78 79 Resp 12 22 B/P (MAP) 99/64 103/66 105/81 Pulse Ox 93 92 98 O2 Delivery Room Air Room Air Room Air Room Air 11/24/21 11/24/21 11/24/21 11/24/21 11:38 12:00 12:16 13:00 Temp 36.1 Pulse 92 84 Resp 17 21 B/P (MAP) 139/89 123/89 Pulse Ox 96 95 O2 Delivery Room Air Room Air Room Air 11/24/21 11/24/21 11/24/21 11/24/21 13:00 14:00 15:00 16:00 Pulse 81 89 81 98 Resp 27 12 27 B/P (MAP) 126/91 105/81 Pulse Ox 97 97 96 O2 Delivery Room Air Room Air Room Air 11/24/21 16:00 Temp 36.4 Capillary Refill : General Appearance: WD/WN, mild distress (with palpation) Neck: non-tender, full range of motion Respiratory: chest non-tender, lungs clear, normal breath sounds, no respiratory distress, no accessory muscle use Cardiovascular: normal peripheral pulses, regular rate, rhythm, no edema, no murmur Gastrointestinal: normal bowel sounds, tenderness (diffuse ttp, no rebound ) Extremities: normal range of motion, non-tender, normal inspection, no pedal edema, no calf tenderness, normal capillary refill Neurologic/Psychiatric: budget manager II-XII nml as tested, no motor/sensory deficits, alert, normal mood/affect, oriented x 3 Skin: normal color, warm/dry Lymphatic: no adenopathy Assessment/Plan Assessment/Plan Admission Status: Inpatient Order (span 2 midnights) Reason for Inpatient Admission: Requiring IVFs, NPO (1) Acute pancreatitis Status: Acute Assessment & Plan: - Likely 2/2 to elevated TG, start insulin gtts, aggressive IVFs hydration, NPO Qualifiers: Qualified Codes: K85.80 - Other acute pancreatitis without necrosis or infection (2) Hypertriglyceridemia Status: Chronic (3) Uncontrolled diabetes mellitus Status: Acute Assessment & Plan: - Will restart home meds when patient starts to tolerate PO diet Qualifiers: Qualified Codes: E11.65 - Type 2 diabetes mellitus with hyperglycemia (4) CHLOE (acute kidney injury) Status: Acute Assessment & Plan: - Repeat BMP REEMA ARELLANO MD Nov 24, 2021 19:52
[2021-11-24] MEDS: inSUlin ASPART (NovoLOG) 1 UNIT/0.01 ML (CHARGE PER UNIT) SC SCH (21:02)
[2021-11-24] MEDS: inSUlin ASPART (NovoLOG) 1 UNIT/0.01 ML (CHARGE PER UNIT) SQ SCH (21:50)
[2021-11-25] MEDS: HYDROmorphone 2 MG/ML VIAL (DILAUDID) IV PRN ×5 (00:48→22:35)
[2021-11-25 05:27] LABS: POTASSIUM 3.4 MMOL/L (3.6-5.0)
[2021-11-25 05:29] LABS: TOTAL PROTEIN 6.2 GM/DL (6.4-8.2)
[2021-11-25 05:31] LABS: BILIRUBIN,TOTAL 1.4 MG/DL (0.1-1.0)
[2021-11-25 05:32] LABS: PHOSPHORUS 1.8 MG/DL (2.3-4.7)
[2021-11-25 05:33] LABS: CREATININE SERUM 0.75 MG/DL (0.60-1.30)
[2021-11-25 05:36] LABS: MAGNESIUM 1.8 MG/DL (1.6-2.4)
[2021-11-25] MEDS: NS IV 1000 ML 1,000 ML IV SCH ×6 (05:40→19:46)
[2021-11-25] MEDS: inSUlin ASPART (NovoLOG) 1 UNIT/0.01 ML (CHARGE PER UNIT) SC SCH ×4 (05:44→21:54)
[2021-11-25] MEDS: MAGNESIUM 1 GM/100 ML IVPB 100 ML IV SCH (05:44)
[2021-11-25] MEDS: POTASSIUM CL 10MEQ/50ML IVPB 50 ML IV SCH ×3 (05:44→06:31)
[2021-11-25] MEDS: inSUlin ASPART (NovoLOG) 1 UNIT/0.01 ML (CHARGE PER UNIT) SQ SCH ×4 (05:45→21:54)
[2021-11-25] MEDS: PANTOPRAZOLE 40 MG (PROTONIX) VIAL IV SCH (09:54)
[2021-11-25] MEDS ORDERED: CANA300T PO (09:57)
[2021-11-25] MEDS ORDERED: METF-399 PO (09:57)
[2021-11-25] MEDS ORDERED: LISI2.5T13 PO (09:57)
[2021-11-25] MEDS ORDERED: PRAV80TA2 PO (09:57)
[2021-11-25] MEDS ORDERED: GLIP10TA13 PO (09:57)
--- NOTE | 2021-11-25 10:08 | Progress Note - Hospitalist ---
VALENTE KYLE 11/25/21 1008: Subjective HPI/CC On Admission Date Seen by Provider: Nov 25, 2021 Time Seen by Provider: 09:30 Subjective/Events-last exam The patient was laying in bed this morning. He reports his pain comes and goes, and can get up to a 10/10. The patient reports his pain is stabbing in character and is located in the LLQ. He also reports that his pain can radiate to the epigastric region. The patient also reports complaints of urinary frequency, which has been present for a couple of months. He also reports complaints of blood in his stool which has been present for a couple of months. He reports some pain associated with bowel movements on occasion. Review of Systems General: Other (no fever ) HEENT: Head Aches; No Visual Changes Pulmonary: No Dyspnea, No Cough Cardiovascular: Chest Pain (felt in epigastric region, dt pain radiating from his LLQ); No: Palpitations Gastrointestinal: No: Nausea, Vomiting, Diarrhea, Constipation Genitourinary: Frequency; No Hematuria Musculoskeletal: other (no joint pain ); No: back pain Neurological: Numbness (Lateral aspect of dorsum of left foot, and R carson. ); No: Weakness Objective Exam Vital Signs Vital Signs Date Time Temp Pulse Resp B/P (MAP) Pulse Ox O2 Delivery O2 Flow Rate FiO2 11/25/21 16:00 38.4 98 24 123/86 94 Room Air Capillary Refill : General Appearance: WD/WN, Mild Distress HEENT: PERRL/EOMI, Pharynx Normal, Moist Mucous Membranes, Pale Conjunctivae (L) Respiratory: Chest Non Tender, Lungs Clear, Normal Breath Sounds, No Accessory Muscle Use, No Respiratory Distress Cardiovascular: Regular Rate, Rhythm, No Edema, No Murmur, Normal Peripheral Pulses Gastrointestinal: No Organomegaly, No Pulsatile Mass, Tenderness (epigastric and LLQ region) Rectal: Deferred Extremity: No Calf Tenderness, No Pedal Edema Neurologic/Psychiatric: Alert, Oriented x3, Normal Mood/Affect, Sensory Deficit (numbess in lateral aspect of dorsum of left foot, and R carson) Skin: Normal Color, Warm/Dry Results/Procedures Lab Laboratory Tests 11/25/21 05:00 Patient resulted labs reviewed. Assessment/Plan Assessment and Plan Assess & Plan/Chief Complaint Pancreatitis secondary to hypertriglyceridemia DM Ulcer prophylaxis DVT prophylaxis Pancreatitis secondary to hypertriglyceridemia Hydration. Continue on a clear liquid diet. Continue pain control therapy. DM Continue NovoLog ACHS. Ulcer prophylaxis DVT prophylaxis Continue IV protonix 40mg daily. Continue SC Lovenox 40mg Q24hr. REEMA ARELLANO MD 11/25/212032: Objective Exam General Appearance: Mild Distress Respiratory: Chest Non Tender, Lungs Clear, Normal Breath Sounds Cardiovascular: Regular Rate, Rhythm, No Edema, No Murmur Gastrointestinal: Soft; No Distended, No Guarding; Tenderness (epigastric and LLQ region) Extremity: Normal Range of Motion, Non Tender, No Calf Tenderness, No Pedal Edema Neurologic/Psychiatric: Alert, Oriented x3, Normal Mood/Affect Skin: Normal Color, Warm/Dry Lymphatic: No Adenopathy Assessment/Plan Assessment and Plan Assess & Plan/Chief Complaint Verification and Attestation of Medical Student E/M Service A medical student performed and documented this service in my presence. I reviewed and verified all information documented by the medical student and made modifications to such information, when appropriate. I personally performed the physical exam and medical decision making. Reema Arellano, Nov 25, 2021,20:31 Acute Pancreatitis - Continue CLD, will not advance due to pain, will decrease IVFs, switch pain meds to PO with IV for breakthru IDDM - A1c pending, SSI, Accuchekc Supervisory-Addendum Brief Verification & Attestation Participated in pt care: history, physical Personally performed: exam, history Care discussed with: Medical Student Procedures: n/a Verification and Attestation of Medical Student E/M Service A medical student performed and documented this service in my presence. I reviewed and verified all information documented by the medical student and made modifications to such information, when appropriate. I personally performed the physical exam and medical decision making. Reema Arellano, Nov 25, 2021,20:33 VALENTE KYLE Nov 25, 2021 10:08 REEMA ARELLANO MD Nov 25, 2021 20:33
[2021-11-25] MEDS: ENOXAPARIN 40 MG/0.4 ML (LOVENOX) SYR SC SCH (16:02)
[2021-11-25] MEDS: HYDROcodone/APAP 7.5 MG/325 MG (LORTAB, LORCET PLUS) TABLET PO PRN ×2 (16:03→22:35)
[2021-11-25 19:23] LABS: BILIRUBIN,URINE NEGATIVE (NEGATIVE); CLARITY,URINE CLEAR; COLOR,URINE YELLOW; GLUCOSE, URINE (UA) 3+ (NEGATIVE); KETONES,URINE 1+ (NEGATIVE); LEUKOCYTE ESTERASE ,URINE NEGATIVE (NEGATIVE); NITRITE,URINE NEGATIVE (NEGATIVE); PROTEIN,URINE TRACE (NEGATIVE)
[2021-11-25 19:58] LABS: BACTERIA,URINE NEGATIVE /HPF; RBC,URINE RARE /HPF; SQUAMOUS EPITHELIAL CELL,UR RARE /HPF; WBC,URINE RARE /HPF
[2021-11-26] MEDS: HYDROcodone/APAP 7.5 MG/325 MG (LORTAB, LORCET PLUS) TABLET PO PRN ×4 (03:58→22:27)
[2021-11-26] MEDS: HYDROmorphone 2 MG/ML VIAL (DILAUDID) IV PRN ×2 (03:58→21:24)
[2021-11-26 05:55] LABS: BASOPHILS % (AUTO) 1 % (0-10); EOSINOPHILS # (AUTO) 0.5 10^3/uL (0.0-0.3); EOSINOPHILS % (AUTO) 6 % (0-10); HEMATOCRIT 42 % (40-54); HEMOGLOBIN 13.9 g/dL (13.3-17.7); MEAN CORPUSCULAR HGB CONC 33 g/dL (32-36)
[2021-11-26 05:58] LABS: LYMPHOCYTES # (AUTO) 0.9 10^3/uL (1.0-4.0); LYMPHOCYTES % (AUTO) 11 % (12-44); MEAN CORPUSCULAR HEMOGLOBIN 25 pg (25-34); MEAN CORPUSCULAR VOLUME 76 fL (80-99); MEAN PLATELET VOLUME 11.2 fL (9.0-12.2); MONOCYTES # (AUTO) 0.8 10^3/uL (0.0-1.0); MONOCYTES % (AUTO) 10 % (0-12); NEUTROPHILS # (AUTO) 6.2 10^3/uL (1.8-7.8); NEUTROPHILS % (AUTO) 72 % (42-75); PLATELET COUNT 87 10^3/uL (130-400); WHITE BLOOD COUNT 8.5 10^3/uL (4.3-11.0)
[2021-11-26 06:23] LABS: ALBUMIN 3.1 GM/DL (3.2-4.5); BILIRUBIN,TOTAL 1.7 MG/DL (0.1-1.0); CALCIUM 8.5 MG/DL (8.5-10.1); CREATININE SERUM 0.74 MG/DL (0.60-1.30); MAGNESIUM 1.8 MG/DL (1.6-2.4); POTASSIUM 3.4 MMOL/L (3.6-5.0); TOTAL PROTEIN 6.3 GM/DL (6.4-8.2)
[2021-11-26] MEDS: inSUlin ASPART (NovoLOG) 1 UNIT/0.01 ML (CHARGE PER UNIT) SQ SCH ×5 (06:25→21:13)
[2021-11-26] MEDS: inSUlin ASPART (NovoLOG) 1 UNIT/0.01 ML (CHARGE PER UNIT) SC SCH ×5 (06:25→21:24)
[2021-11-26] MEDS: MAGNESIUM 1 GM/100 ML IVPB 100 ML IV SCH (06:25)
[2021-11-26] MEDS: POTASSIUM CL 10MEQ/50ML IVPB 50 ML IV SCH ×3 (06:25→08:32)
[2021-11-26] MEDS: NS IV 1000 ML 1,000 ML IV SCH (06:31)
[2021-11-26 06:52] LABS: ATYPICAL LYMPHOCYTES 1 %; BAND NEUTROPHILS 2 %; EOSINOPHILS % (MANUAL) 3 %; HYPOCHROMASIA SLIGHT; LYMPHOCYTES % (MANUAL) 14 %; MICROCYTOSIS MODERATE; MONOCYTES % (MANUAL) 8 %; NEUTROPHILS % (MANUAL) 72 %
[2021-11-26] MEDS: PANTOPRAZOLE 40 MG (PROTONIX) VIAL IV SCH (08:35)
--- NOTE | 2021-11-26 12:39 | Progress Note - Hospitalist ---
VALENTE KYLE 11/26/21 1239: Subjective HPI/CC On Admission Date Seen by Provider: Nov 26, 2021 Time Seen by Provider: 09:15 Subjective/Events-last exam PT was laying in bed this morning. He reports his current pain is a 7/10, and located in the LLQ and LUQ region. He reports his pain can get up to a 10/10. He reports being woken up because of pain at 4am this morning. He reports pain with drinking clear liquids. He reports having a fever yesterday. Review of Systems General: Other (fever yesterday) HEENT: Head Aches; No Visual Changes Pulmonary: No Dyspnea; Cough (last night) Cardiovascular: No: Chest Pain, Palpitations Gastrointestinal: No: Nausea, Vomiting, Diarrhea, Constipation Musculoskeletal: other (no joint pain ); No: back pain Neurological: Other (reports feeling dizzy); No: Weakness, Numbness Objective Exam Vital Signs Vital Signs Date Time Temp Pulse Resp B/P (MAP) Pulse Ox O2 Delivery O2 Flow Rate FiO2 11/26/21 11:51 36.6 95 20 128/95 96 Room Air Capillary Refill : General Appearance: No Apparent Distress, WD/WN HEENT: PERRL/EOMI, Pharynx Normal Respiratory: Chest Non Tender, Lungs Clear, Normal Breath Sounds, No Accessory Muscle Use, No Respiratory Distress Cardiovascular: Regular Rate, Rhythm, No Edema, No Murmur, Normal Peripheral Pulses Gastrointestinal: No Organomegaly, No Pulsatile Mass, Soft, Tenderness (LLQ and LUQ) Extremity: Normal Inspection, No Calf Tenderness, No Pedal Edema Neurologic/Psychiatric: Alert, Oriented x3, Normal Mood/Affect Skin: Normal Color, Warm/Dry Results/Procedures Lab Laboratory Tests 11/26/21 05:50 Patient resulted labs reviewed. Assessment/Plan Assessment and Plan Assess & Plan/Chief Complaint Pancreatitis secondary to hypertriglyceridemia DM Ulcer prophylaxis DVT prophylaxis Pancreatitis secondary to hypertriglyceridemia DC IVF. Continue on a clear liquid diet. Will move to 4th floor. Will undergo abdominal ultrasound to visualize the pancreas DM Continue NovoLog ACHS. Ulcer prophylaxis DVT prophylaxis Continue IV protonix 40mg daily. Continue SC Lovenox 40mg Q24hr. REEMA ARELLANO MD 11/26/21 9883: Supervisory-Addendum Brief Verification & Attestation Participated in pt care: history, physical Personally performed: exam, history Care discussed with: Medical Student Procedures: n/a Verification and Attestation of Medical Student E/M Service A medical student performed and documented this service in my presence. I reviewed and verified all information documented by the medical student and made modifications to such information, when appropriate. I personally performed the physical exam and medical decision making. Reema Arellano, Nov 26, 2021,18:12 Acute Pancreatitis - Will repeat US today since pain is continuing, Stop IVFs due to some shortness of breath, will advance diet when pain better controlled, continue CLD VALENTE KYLE Nov 26, 2021 12:39 REEMA ARELLANO MD Nov 26, 2021 18:13
--- NOTE | 2021-11-26 16:04 | Diagnostic Imaging Report ---
INDICATION: Pancreatitis. TECHNIQUE: Ultrasound of the right upper quadrant was performed in the routine fashion with comparison to 11/19/2019. FINDINGS: The liver shows diffuse increased echogenicity compatible with fatty infiltration, with focal sparing near the gallbladder fossa. Gallbladder shows no stones or wall thickening. Common duct measured 4 mm. Pancreas is not well seen due to overlying gas. The visualized portions of the aorta and IVC are normal. Right kidney was unremarkable and measured 10.5 cm in length. IMPRESSION: Diffuse fatty infiltration of the liver with focal sparing near the gallbladder fossa. No gallstones or biliary dilatation. Dictated by: Dictated on workstation # [id number]
[2021-11-26] MEDS: ENOXAPARIN 40 MG/0.4 ML (LOVENOX) SYR SC SCH (16:20)
[2021-11-27] MEDS: HYDROmorphone 2 MG/ML VIAL (DILAUDID) IV PRN ×4 (03:26→22:44)
[2021-11-27] MEDS: HYDROcodone/APAP 7.5 MG/325 MG (LORTAB, LORCET PLUS) TABLET PO PRN ×3 (05:02→18:16)
[2021-11-27] MEDS: inSUlin ASPART (NovoLOG) 1 UNIT/0.01 ML (CHARGE PER UNIT) SC SCH ×4 (06:22→20:02)
[2021-11-27] MEDS: inSUlin ASPART (NovoLOG) 1 UNIT/0.01 ML (CHARGE PER UNIT) SQ SCH ×5 (06:22→21:09)
[2021-11-27 07:35] LABS: ALBUMIN 3.3 GM/DL (3.2-4.5); POTASSIUM 3.3 MMOL/L (3.6-5.0)
[2021-11-27 07:36] LABS: CALCIUM 8.8 MG/DL (8.5-10.1)
[2021-11-27 07:38] LABS: TOTAL PROTEIN 6.9 GM/DL (6.4-8.2)
[2021-11-27 07:39] LABS: BILIRUBIN,TOTAL 1.7 MG/DL (0.1-1.0)
[2021-11-27 07:41] LABS: CREATININE SERUM 0.79 MG/DL (0.60-1.30)
[2021-11-27] MEDS: POTASSIUM CL 10MEQ/50ML IVPB 50 ML IV SCH (08:23)
[2021-11-27] MEDS: MAGNESIUM 1 GM/100 ML IVPB 100 ML IV SCH (08:24)
[2021-11-27] MEDS ORDERED: POTASSIUM CL 10MEQ/50ML IVPB 50 ML IV NR (08:30)
[2021-11-27] MEDS ORDERED: POTASSIUM CL 10MEQ/50ML IVPB 50 ML IV ONE (08:30)
[2021-11-27] MEDS: PANTOPRAZOLE 40 MG (PROTONIX) VIAL IV SCH (08:56)
[2021-11-27] MEDS ORDERED: NS IV 1000 ML 1,000 ML IV SCH (10:30)
--- NOTE | 2021-11-27 10:46 | Progress Note - Hospitalist ---
Subjective HPI/CC On Admission Date Seen by Provider: Nov 27, 2021 Time Seen by Provider: 08:30 Subjective/Events-last exam Patient reports abdominal pain about the same. He denies nausea but still requiring IV narcotic therapy for pain which helps for several hours. He denies chills or fever and denies shortness of breath or chest discomfort. Does report his pain radiates through to the back. He is tolerating liquids but reports he does not feel hungry. Objective Exam Vital Signs Vital Signs Date Time Temp Pulse Resp B/P (MAP) Pulse Ox O2 Delivery O2 Flow Rate FiO2 11/27/21 07:57 36.9 99 18 131/93 96 Room Air Capillary Refill : General Appearance: No Apparent Distress, WD/WN Respiratory: Chest Non Tender, Lungs Clear, Normal Breath Sounds, No Accessory Muscle Use, No Respiratory Distress Cardiovascular: Regular Rate, Rhythm, No Edema, No Gallop, No JVD, No Murmur, Normal Peripheral Pulses Gastrointestinal: Other (Abdominal distention with epigastric left upper and left mid quadrant pain to palpation with guarding no rebound noted. Bowel sounds hypoactive and no mass or organomegaly noted.) Results/Procedures Lab Laboratory Tests 11/27/21 07:10 Patient resulted labs reviewed. Assessment/Plan Assessment and Plan Assess & Plan/Chief Complaint 1. First episode of acute pancreatitis likely due to hypertriglyceridemia from uncontrolled type 2 diabetes. Well patient still has significant abdominal pain and all other factors point to improvement with decreasing lipase levels decreasing white count and significant reduction in triglyceride levels now under 500. Continue IV fluids conservative management. 2. Ileus secondary to #1 continue liquid diet only not yet ready to advance. 3. Type 2 diabetes mellitus significantly improved blood sugar control requiring minimal insulin therapy on liquid diet only I did discuss the importance of carbohydrate restriction to aid in diabetic control going forward. Critical Care Critically Ill Patient KELLY CHASE MD Nov 27, 2021 10:46
[2021-11-27] MEDS: ENOXAPARIN 40 MG/0.4 ML (LOVENOX) SYR SC SCH (15:47)
[2021-11-28] MEDS: HYDROcodone/APAP 7.5 MG/325 MG (LORTAB, LORCET PLUS) TABLET PO PRN ×3 (02:49→16:52)
[2021-11-28 05:38] LABS: POTASSIUM 3.5 MMOL/L (3.6-5.0)
[2021-11-28 05:39] LABS: CALCIUM 8.8 MG/DL (8.5-10.1)
[2021-11-28] MEDS: inSUlin ASPART (NovoLOG) 1 UNIT/0.01 ML (CHARGE PER UNIT) SC SCH ×4 (05:41→20:12)
[2021-11-28 05:43] LABS: CREATININE SERUM 0.79 MG/DL (0.60-1.30)
[2021-11-28 05:45] LABS: MAGNESIUM 2.1 MG/DL (1.6-2.4)
[2021-11-28] MEDS: MAGNESIUM 1 GM/100 ML IVPB 100 ML IV SCH (05:47)
[2021-11-28] MEDS: HYDROmorphone 2 MG/ML VIAL (DILAUDID) IV PRN ×3 (06:14→21:49)
[2021-11-28] MEDS: POTASSIUM CL 10MEQ/50ML IVPB 50 ML IV SCH (07:07)
[2021-11-28] MEDS: PANTOPRAZOLE 40 MG (PROTONIX) VIAL IV SCH (08:50)
--- NOTE | 2021-11-28 11:02 | Progress Note - Hospitalist ---
Subjective HPI/CC On Admission Date Seen by Provider: Nov 28, 2021 Time Seen by Provider: 09:00 Subjective/Events-last exam Patient reports abdominal pain and predominantly left upper quadrant left mid quadrant radiating to the back is unchanged with about the same amount of usage of IV and p.o. narcotic therapy. He has had some mild nausea without vomiting is tolerating liquids but reports no appetite. He has passed some gas reports no stool and no vomiting. Objective Exam Vital Signs Vital Signs Date Time Temp Pulse Resp B/P (MAP) Pulse Ox O2 Delivery O2 Flow Rate FiO2 11/28/21 07:36 36.6 90 18 122/84 96 Room Air Capillary Refill : General Appearance: Anxious, Mild Distress Respiratory: No Accessory Muscle Use, No Respiratory Distress, Other (Decreased breath sounds in left base without wheezes rales or rhonchi) Cardiovascular: Regular Rate, Rhythm, No Edema, No Gallop, No JVD, No Murmur, Normal Peripheral Pulses Gastrointestinal: Other (Mild distention unchanged with some rigidity left abdomen mid quadrant and upper quadrant unchanged guarding no rebound more bowel sounds noted today than yesterday no organomegaly.) Extremity: Normal Inspection, Normal Range of Motion, Non Tender, No Calf Tenderness, No Pedal Edema Results/Procedures Lab Laboratory Tests 11/28/21 05:22 Patient resulted labs reviewed. Assessment/Plan Assessment and Plan Assess & Plan/Chief Complaint 1. First episode of acute pancreatitis likely due to hypertriglyceridemia from uncontrolled type 2 diabetes. Abdominal pain unchanged but heart rate is tending lower stable blood pressure and significant decrease in white count. Patient did not tolerate IV potassium yesterday was held after getting very little despite this his potassium levels up to 3.5 we will continue to monitor. We will repeat CT abdomen in the morning as physical exam findings still suggest significant pancreatitis related inflammation. Continue IV fluids conservative management. 2. Ileus secondary to #1 continue liquid diet only not yet ready to advance. 3. Type 2 diabetes mellitus significantly improved blood sugar control requiring minimal insulin therapy on liquid diet only I did discuss the importance of carbohydrate restriction to aid in diabetic control going forward. Critical Care Critically Ill Patient KELLY CHASE MD Nov 28, 2021 11:02
[2021-11-28] MEDS: ENOXAPARIN 40 MG/0.4 ML (LOVENOX) SYR SC SCH (14:17)
[2021-11-29] MEDS: HYDROcodone/APAP 7.5 MG/325 MG (LORTAB, LORCET PLUS) TABLET PO PRN ×4 (00:57→21:48)
[2021-11-29] MEDS: inSUlin ASPART (NovoLOG) 1 UNIT/0.01 ML (CHARGE PER UNIT) SC SCH ×4 (05:08→21:49)
[2021-11-29] MEDS: HYDROmorphone 2 MG/ML VIAL (DILAUDID) IV PRN (05:08)
[2021-11-29] MEDS: MAGNESIUM 1 GM/100 ML IVPB 100 ML IV SCH (06:00)
[2021-11-29 06:18] LABS: BASOPHILS # (AUTO) 0.1 10^3/uL (0.0-0.1); BASOPHILS % (AUTO) 1 % (0-10); EOSINOPHILS # (AUTO) 0.5 10^3/uL (0.0-0.3); EOSINOPHILS % (AUTO) 5 % (0-10); HEMATOCRIT 44 % (40-54); HEMOGLOBIN 14.2 g/dL (13.3-17.7); LYMPHOCYTES # (AUTO) 1.6 10^3/uL (1.0-4.0); LYMPHOCYTES % (AUTO) 16 % (12-44); MEAN CORPUSCULAR HEMOGLOBIN 25 pg (25-34); MEAN CORPUSCULAR HGB CONC 32 g/dL (32-36); MEAN CORPUSCULAR VOLUME 76 fL (80-99); MEAN PLATELET VOLUME 10.3 fL (9.0-12.2); MONOCYTES # (AUTO) 1.1 10^3/uL (0.0-1.0); MONOCYTES % (AUTO) 11 % (0-12); NEUTROPHILS # (AUTO) 6.1 10^3/uL (1.8-7.8); NEUTROPHILS % (AUTO) 62 % (42-75); PLATELET COUNT 171 10^3/uL (130-400); WHITE BLOOD COUNT 9.8 10^3/uL (4.3-11.0)
[2021-11-29 07:38] LABS: ALBUMIN 3.1 GM/DL (3.2-4.5); BILIRUBIN,TOTAL 1.4 MG/DL (0.1-1.0); CALCIUM 8.9 MG/DL (8.5-10.1); CREATININE SERUM 0.83 MG/DL (0.60-1.30); POTASSIUM 3.6 MMOL/L (3.6-5.0); TOTAL PROTEIN 6.8 GM/DL (6.4-8.2)
[2021-11-29] MEDS ORDERED: HOLD METFORMIN - RECEIVED CONTRAST 20 ML VIAL IV SCH (08:00)
[2021-11-29] MEDS ORDERED: IOHEXOL 350 MG/ML 100 ML (OMNIPAQUE 350) VIAL IV ONE (08:00)
[2021-11-29] MEDS ORDERED: NS 100 ML (IVPB) BAG IV ONE (08:00)
[2021-11-29] MEDS ORDERED: CATHETER FLUSH 10 ML SYR IV PRN (08:00)
[2021-11-29] MEDS: PANTOPRAZOLE 40 MG (PROTONIX) VIAL IV SCH (08:43)
--- NOTE | 2021-11-29 08:58 | Diagnostic Imaging Report ---
PROCEDURE: CT abdomen with contrast only. TECHNIQUE: Multiple contiguous axial images were obtained through the abdomen after the administration of intravenous contrast. Auto Exposure Controls were utilized during the CT exam to meet ALARA standards for radiation dose reduction. INDICATION: Acute pancreatitis. Comparison is made with recent CT from 11/23/2021. The lung bases are clear apart from some atelectasis and trace pleural fluid in the left base. Diffuse low-density throughout the liver is again noted consistent with hepatic steatosis. Low-attenuation lesion right lobe is stable and may represent a small cyst. Gallbladder is unremarkable. There continues to be normal homogeneous enhancement to the pancreas, however, the degree of inflammatory changes adjacent to the pancreatic tail in the left upper quadrant has increased. There has been some increase in the amount of fluid in the left upper quadrant just below the level of the spleen. No well-formed fluid collection or pseudocyst is seen at this time. No adrenal mass is seen. Kidneys are unremarkable. Aorta is nonaneurysmal. Bowel loops are unremarkable. IMPRESSION: 1. Hepatic steatosis. 2. Continued findings of acute pancreatitis. The degree of inflammation and fluid in the left upper quadrant has increased since examination 6 days earlier. There continues to be normal enhancement of the pancreatic parenchyma. No well-formed fluid collection or pseudocyst is seen at this time. Dictated by: Dictated on workstation # [id number]
--- NOTE | 2021-11-29 11:38 | Progress Note - Hospitalist ---
Subjective HPI/CC On Admission Date Seen by Provider: Nov 29, 2021 Time Seen by Provider: 09:30 Objective Exam Vital Signs Vital Signs Date Time Temp Pulse Resp B/P (MAP) Pulse Ox O2 Delivery O2 Flow Rate FiO2 11/29/21 08:00 96 Room Air 11/29/21 07:56 37.2 87 16 121/79 Capillary Refill : General Appearance: No Apparent Distress, Anxious Respiratory: No Accessory Muscle Use, No Respiratory Distress, Other (Decreased breath sounds in left base unchanged chest clear otherwise no chest pain pleuritic or otherwise) Cardiovascular: Regular Rate, Rhythm, No Edema, No Gallop, No JVD, No Murmur, Normal Peripheral Pulses Gastrointestinal: Other (Bowel sounds of anything slightly hyperactive today left upper and left mid quadrant no longer firm there is still pain with guarding no rebound mild abdominal distention unchanged.) Results/Procedures Lab Laboratory Tests 11/29/21 06:05 Patient resulted labs reviewed. Assessment/Plan Assessment and Plan Assess & Plan/Chief Complaint 1. Recurrent pancreatitis likely due to hypertriglyceridemia from uncontrolled type 2 diabetes. Abdominal pain unchanged but heart rate is tending lower stable blood pressure and significant decrease in white count. Repeat CT findings revealed no evidence for pseudocyst formation or overt evidence for nec rosis. There is still significant edema without any overt fluid accumulation noted in the left upper and left mid quadrant where the patient reports his tenderness. He has had no night sweats chills or fever to suggest a neck related process or underlying infection is afebrile heart rate trending down all indications of response although he still having significant discomfort. The importance of especially a lower carb diet discussed in layman's terms with his present and at this time avoiding overly fatty foods was discussed in addition to continuing on discharge lipid-lowering therapy and antidiabetic medication with need for follow-up. Patient still is not yet hungry but tolerating liquids discuss discharge in the next day or 2 as long as progress continues. 2. Ileus secondary to #1 Improving continue liquid diet only not yet ready to advance until feeling hungry again.. 3. Type 2 diabetes mellitus significantly improved blood sugar control requiring minimal insulin therapy on liquid diet only I did discuss the importance of carbohydrate restriction to aid in diabetic control going forward. Critical Care Critically Ill Patient KELLY CHASE MD Nov 29, 2021 11:38
[2021-11-29] MEDS: ENOXAPARIN 40 MG/0.4 ML (LOVENOX) SYR SC SCH (16:33)
[2021-11-30] MEDS: HYDROcodone/APAP 7.5 MG/325 MG (LORTAB, LORCET PLUS) TABLET PO PRN ×4 (03:21→21:51)
[2021-11-30] MEDS: MAGNESIUM 1 GM/100 ML IVPB 100 ML IV SCH (03:38)
[2021-11-30] MEDS: inSUlin ASPART (NovoLOG) 1 UNIT/0.01 ML (CHARGE PER UNIT) SC SCH ×4 (05:27→20:55)
[2021-11-30 07:13] LABS: BASOPHILS # (AUTO) 0.1 10^3/uL (0.0-0.1); BASOPHILS % (AUTO) 1 % (0-10); EOSINOPHILS # (AUTO) 0.4 10^3/uL (0.0-0.3); EOSINOPHILS % (AUTO) 6 % (0-10); HEMATOCRIT 44 % (40-54); HEMOGLOBIN 14.3 g/dL (13.3-17.7); LYMPHOCYTES # (AUTO) 1.3 10^3/uL (1.0-4.0); LYMPHOCYTES % (AUTO) 17 % (12-44); MEAN CORPUSCULAR HEMOGLOBIN 25 pg (25-34); MEAN CORPUSCULAR HGB CONC 32 g/dL (32-36); MEAN CORPUSCULAR VOLUME 77 fL (80-99); MEAN PLATELET VOLUME 9.9 fL (9.0-12.2); MONOCYTES # (AUTO) 0.9 10^3/uL (0.0-1.0); MONOCYTES % (AUTO) 11 % (0-12); NEUTROPHILS # (AUTO) 4.6 10^3/uL (1.8-7.8); NEUTROPHILS % (AUTO) 59 % (42-75); PLATELET COUNT 164 10^3/uL (130-400); WHITE BLOOD COUNT 7.7 10^3/uL (4.3-11.0)
[2021-11-30 07:34] LABS: BILIRUBIN,TOTAL 1.1 MG/DL (0.1-1.0); CREATININE SERUM 0.84 MG/DL (0.60-1.30); POTASSIUM 3.6 MMOL/L (3.6-5.0); TOTAL PROTEIN 6.8 GM/DL (6.4-8.2)
--- NOTE | 2021-11-30 09:38 | Progress Note - Hospitalist ---
Subjective HPI/CC On Admission Date Seen by Provider: Nov 30, 2021 Time Seen by Provider: 10:00 Subjective/Events-last exam Pt is doing okay Doesn't really understand the pain scale, he reports 8/10 but he is not in any distress Sodium level is 130 Surgery will be consulted to evaluate the CT scan Review of Systems General: Fatigue, Malaise Gastrointestinal: Abdominal Pain Objective Exam Vital Signs Vital Signs Date Time Temp Pulse Resp B/P (MAP) Pulse Ox O2 Delivery O2 Flow Rate FiO2 12/01/21 00:30 36.6 77 18 122/77 96 Room Air Capillary Refill : General Appearance: No Apparent Distress, WD/WN, Chronically ill, Obese Respiratory: Lungs Clear, Normal Breath Sounds Cardiovascular: Regular Rate, Rhythm Neurologic/Psychiatric: Alert, Oriented x3, No Motor/Sensory Deficits, Normal Mood/Affect Results/Procedures Lab Laboratory Tests 11/30/21 07:05 Patient resulted labs reviewed. Assessment/Plan Assessment and Plan Assess & Plan/Chief Complaint Assessment: 1. Recurrent pancreatitis likely due to hypertriglyceridemia from uncontrolled type 2 diabetes. Abdominal pain unchanged but heart rate is tending lower s table blood pressure and significant decrease in white count. Repeat CT findings revealed no evidence for pseudocyst formation or overt evidence for necrosis. There is still significant edema without any overt fluid accumulation noted in the left upper and left mid quadrant where the patient reports his tenderness. He has had no night sweats chills or fever to suggest a neck related process or underlying infection is afebrile heart rate trending down all indications of response although he still having significant discomfort. The importance of especially a lower carb diet discussed in layman's terms with his present and at this time avoiding overly fatty foods was discussed in addit ion to continuing on discharge lipid-lowering therapy and antidiabetic medication with need for follow-up. Patient still is not yet hungry but tolerating liquids discuss discharge in the next day or 2 as long as progress continues. 2. Ileus secondary to #1 Improving continue liquid diet only not yet ready to advance until feeling hungry again.. 3. Type 2 diabetes mellitus significantly improved blood sugar control requiring minimal insulin therapy on liquid diet only I did discuss the import ance of carbohydrate restriction to aid in diabetic control going forward. Plan: Consult general surgery Critical Care Critically Ill Patient KIRBYGIOVANY ESCOBARIrais THURSTON Nov 30, 2021 09:38
[2021-11-30] MEDS: PANTOPRAZOLE 40 MG (PROTONIX) VIAL IV SCH (09:40)
--- NOTE | 2021-11-30 10:30 | Consultation - Surgery ---
LAUREANOJOSHUA 11/30/21 1030: History of Present Illness History of Present Illness Patient Consulted On(mayito/time) 11/30/21 10:24 Date Seen by Provider: Nov 30, 2021 Time Seen by Provider: 10:24 History of Present Illness Paty Hernandez is a 36 yo male with a history of uncontrolled DM, who presented for evaluation and management of severe abdominal pain, for which a surgical consult was requested. Upon presentation, triglycerides were at a value of 3,874, suggestive of pancreatitis. CT scan on 11/29/21 is consistent with pancreatitis, with evidence of increased inflammation and fluid in addition to hepatic steatosis. No fluid collection or pseudocyst is present. Abdominal US on 11/26 did not show any evidence of gallstones or biliary dilation. Patient states he has had R hernia repair, but otherwise denies any surgeries. He states he is feeling improved, and that his pain is well managed with medication; however, he has no appetite and has not had a bowel movement since last . He further reports low back warmth and pain, especially when laying down at night; this is relieved by ice packs at night. Patient is presently on DVT and GI prophylaxis, and tolerating clear liquid diet. Allergies and Home Medications Allergies Coded Allergies: No Known Drug Allergies (Unverified , 11/08/19) Patient Home Medication List Home Medication List Reviewed: Yes Canagliflozin (Invokana) 300 Mg Tablet, 300 MG PO DAILY, (Reported) Entered as Reported by: ANTOINETTE SALGUERO on 11/25/21956 Last Action: Reviewed Glipizide (Glipizide) 10 Mg Tablet, 10 MG PO BIDAC, (Reported) Entered as Reported by: ANTOINETTE SALGUERO on 11/25/21956 Last Action: Reviewed Lisinopril (Lisinopril) 2.5 Mg Tablet, 2.5 MG PO DAILY, (Reported) Entered as Reported by: ANTOINETTE SALGUERO on 11/25/21956 Last Action: Reviewed Metformin HCl (Metformin HCl) 1,000 Mg Tablet, 1,000 MG PO BIDAC, (Reported) Entered as Reported by: ANTOINETTE SALGUERO on 11/25/21956 Last Action: Reviewed Pravastatin Sodium (Pravastatin Sodium) 80 Mg Tablet, 80 MG PO HS, (Reported) Entered as Reported by: ANTOINETTE SALGUERO on 11/25/21 0957 Last Action: Reviewed Discontinued Medications Atorvastatin Calcium (Atorvastatin Calcium) 20 Mg Tablet, (Reported) Discontinued Reason: No Longer Taking Entered as Reported by: DENNISE ALVARADO on 11/08/191847 Last Action: Discontinued Atorvastatin Calcium (Atorvastatin Calcium) 20 Mg Tablet, 20 MG PO DAILY Discontinued Reason: No Longer Taking Prescribed by: JANINE PADILLA on 06/04/212006 Last Action: Discontinued Fenofibrate Nanocrystallized (Fenofibrate) 145 Mg Tablet, (Reported) Discontinued Reason: No Longer Taking Entered as Reported by: DENNISE ALVARADO on 11/08/191847 Last Action: Discontinued Fenofibrate Nanocrystallized (Fenofibrate) 145 Mg Tablet, 145 MG PO DAILY Discontinued Reason: No Longer Taking Prescribed by: JANINE PADILLA on 06/04/212006 Last Action: Discontinued Glipizide (Glipizide) 5 Mg Tablet, (Reported) Discontinued Reason: No Longer Taking Entered as Reported by: SULLY CONDON on 11/08/191943 Last Action: Discontinued Glipizide (Glipizide) 5 Mg Tablet, 5 MG PO BID Discontinued Reason: No Longer Taking Prescribed by: JANINE PADILLA on 06/04/212007 Last Action: Discontinued Lisinopril (Lisinopril) 2.5 Mg Tablet, (Reported) Discontinued Reason: No Longer Taking Entered as Reported by: DENNISE ALVARADO on 11/08/191847 Last Action: Discontinued Metformin HCl (Metformin HCl) 500 Mg Tablet, 1,000 MG PO BID, (Reported) Discontinued Reason: No Longer Taking Entered as Reported by: DENNISE ALVARADO on 11/08/191847 Last Action: Discontinued Metformin HCl (Metformin HCl) 500 Mg Tablet, 500 MG PO BID Discontinued Reason: No Longer Taking Prescribed by: JANINE PADILLA on 06/04/212007 Last Action: Discontinued Ondansetron (Ondansetron Odt) 4 Mg Tab.rapdis, 4 MG PO Q4H Discontinued Reason: No Longer Taking Prescribed by: JANINE APDILLA on 06/04/212004 Last Action: Discontinued Past Khaamxs-Snuflb-Svygzf Hx Patient Social History Smoking Status: Never a Smoker Recent Hopitalizations: No Alcohol Use?: No Have you traveled recently?: No Immunizations Up To Date Date of Influenza Vaccine: Aug 27, 2020 Seasonal Allergies Seasonal Allergies: No Surgeries History of Surgeries: Yes (HERNIA) Surgeries: Abdominal Respiratory History of Respiratory Disorde: No Cardiovascular History of Cardiac Disorders: Yes Cardiac Disorders: High Cholesterol, Hypertension Neurological History of Neurological Disord: No Genitourinary History of Genitourinary Disor: No Gastrointestinal History of Gastrointestinal Di: Yes Gastrointestinal Disorders: Pancreatitis Musculoskeletal History of Musculoskeletal Dis: No Endocrine History of Endocrine Disorders: Yes Endocrine Disorders: Diabetes, Non-Insulin dep HEENT History of HEENT Disorders: No Cancer History of Cancer: No Psychosocial History of Psychiatric Problem: No Integumentary History of Skin or Integumenta: No Family Medical History Significant Family History: Diabetes Family Medial History: Chronic lymphoid leukemia G8 SISTER, Onset:Adolescence Review of Systems-General Constitutional: dizziness, malaise EENTM: No ear pain Respiratory: No cough, No phlegm Gastrointestinal: abdominal pain (Diffusely in lower abd quadrant), constipation, heartburn, loss of appetite, nausea Genitourinary: No dysuria; frequency Musculoskeletal: back pain (low back, at night); No joint swelling Skin: No change in color, No change in hair/nails Psychiatric/Neurological: Denies Anxiety, Denies Depressed Physical Exam-General Problems Physical Exam Vital Signs Vital Signs - First Documented Capillary Refill : General Appearance: WD/WN, no apparent distress Eyes: Bilateral Eye Normal Inspection, Bilateral Eye PERRL, Bilateral Eye EOMI HEENT: PERRL/EOMI, normal ENT inspection, TMs normal, pharynx normal Neck: non-tender, full range of motion, supple, normal inspection Respiratory: chest non-tender, lungs clear, normal breath sounds, no respiratory distress, no accessory muscle use Cardiovascular: regular rate, rhythm, no edema, no murmur Peripheral Pulses: 2+ Radial Pulses (L) Gastrointestinal: soft, abnormal bowel sounds (hypoactive), distended, guarding (leopoldo in RUQ), tenderness Rectal: deferred Extremities: normal range of motion, non-tender, normal inspection Neurologic/Psychiatric: no motor/sensory deficits, alert, normal mood/affect, oriented x 3 Skin: normal color, warm/dry Lymphatic: no adenopathy Data Review Labs Laboratory Tests 11/29/21 15:51: Glucometer 190H 11/29/21 20:33: Glucometer 207H 11/30/21 05:15: Glucometer 156H 11/30/21 07:05: White Blood Count 7.7, Red Blood Count 5.78H, Hemoglobin 14.3, Hematocrit 44, Mean Corpuscular Volume 77L, Mean Corpuscular Hemoglobin 25, Mean Corpuscular Hemoglobin Concent 32, Red Cell Distribution Width 13.1, Platelet Count 164, Mean Platelet Volume 9.9, Immature Granulocyte % (Auto) 7, Neutrophils (%) (Auto) 59, Lymphocytes (%) (Auto) 17, Monocytes (%) (Auto) 11, Eosinophils (%) (Auto) 6, Basophils (%) (Auto) 1, Neutrophils # (Auto) 4.6, Lymphocytes # (Auto) 1.3, Monocytes # (Auto) 0.9, Eosinophils # (Auto) 0.4H, Basophils # (Auto) 0.1, Immature Granulocyte # (Auto) 0.5H, Sodium Level 133L, Potassium Level 3.6, Chloride Level 100, Carbon Dioxide Level 21, Anion Gap 12, Blood Urea Nitrogen 10, Creatinine 0.84, Estimat Glomerular Filtration Rate 115, BUN/Creatinine Ratio 12, Glucose Level 166H, Calcium Level 9.0, Corrected Calcium 9.8, Total Bilirubin 1.1H, Aspartate Amino Transf (AST/SGOT) 27, Alanine Aminotransferase (ALT/SGPT) 38, Alkaline Phosphatase 100, Total Protein 6.8, Albumin 3.0L, Lipase 182H Microbiology 11/23/21 MRSA Screen - Final, Complete Radiology NAME: PATY HERNANDEZ [facility] REC#: [id number] Date of Exam:11/29/21 CT ABDOMEN W PROCEDURE: CT abdomen with contrast only. TECHNIQUE: Multiple contiguous axial images were obtained through the abdomen after the administration of intravenous contrast. Auto Exposure Controls were utilized during the CT exam to meet ALARA standards for radiation dose reduction. INDICATION: Acute pancreatitis. Comparison is made with recent CT from 11/23/2021. The lung bases are clear apart from some atelectasis and trace pleural fluid in the left base. Diffuse low-density throughout the liver is again noted consistent with hepatic steatosis. Low-attenuation lesion right lobe is stable and may represent a small cyst. Gallbladder is unremarkable. There continues to be normal homogeneous enhancement to the pancreas, however, the degree of inflammatory changes adjacent to the pancreatic tail in the left upper quadrant has increased. There has been some increase in the amount of fluid in the left upper quadrant just below the level of the spleen. No well-formed fluid collection or pseudocyst is seen at this time. No adrenal mass is seen. Kidneys are unremarkable. Aorta is nonaneurysmal. Bowel loops are unremarkable. IMPRESSION: 1. Hepatic steatosis. 2. Continued findings of acute pancreatitis. The degree of inflammation and fluid in the left upper quadrant has increased since examination 6 days earlier. There continues to be normal enhancement of the pancreatic parenchyma. No well-formed fluid collection or pseudocyst is seen at this time. Date of Exam:11/26/21 US ABDOMEN LIMITED [id number] INDICATION: Pancreatitis. TECHNIQUE: Ultrasound of the right upper quadrant was performed in the routine fashion with comparison to 11/19/2019. FINDINGS: The liver shows diffuse increased echogenicity compatible with fatty infiltration, with focal sparing near the gallbladder fossa. Gallbladder shows no stones or wall thickening. Common duct measured 4 mm. Pancreas is not well seen due to overlying gas. The visualized portions of the aorta and IVC are normal. Right kidney was unremarkable and measured 10.5 cm in length. IMPRESSION: Diffuse fatty infiltration of the liver with focal sparing near the gallbladder fossa. No gallstones or biliary dilatation. Assessment/Plan Assessment/Plan Assessment/Plan 1. Abdominal pain, localized to LLQ 2. Pancreatitis, recurrent 3. DM, non-insulin dependent 4. Ileus? Patient on DVT, GI prophylaxis Pain well managed with Lortab and Dilaudid Discussed more frequent ambulation to stimulate the bowels Liquid diet as tolerated QUYEN VIDALES DO 11/30/21 6468: History of Present Illness History of Present Illness History of Present Illness Consult requested by Dr. Siddiqui for acute pancreatitis. 36 year old male admitted for pancreatitis. Having 10/10 pain he states when admitted. Has been feeling a little bit since admitted. Now has 6/10 pain luq. No radiation of pain. Burning type pain. Nothing makes better or worse. No a ppetite. Patient with CT scan abdomen yesterday showing acute pancreatitis. U/s was performed this admission without gallstones. Tolerating some clears. Not on Iv fluids at this time. Allergies and Home Medications Allergies Coded Allergies: No Known Drug Allergies (Unverified , 11/08/19) Patient Home Medication List Home Medication List Reviewed: Yes Canagliflozin (Invokana) 300 Mg Tablet, 300 MG PO DAILY, (Reported) Entered as Reported by: ANTOINETTE SALGUERO on 11/25/21956 Last Action: Reviewed Glipizide (Glipizide) 10 Mg Tablet, 10 MG PO BIDAC, (Reported) Entered as Reported by: ANTOINETTE SALGUERO on 11/25/21956 Last Action: Reviewed Lisinopril (Lisinopril) 2.5 Mg Tablet, 2.5 MG PO DAILY, (Reported) Entered as Reported by: ANTOINETTE SALGUERO on 11/25/21956 Last Action: Reviewed Metformin HCl (Metformin HCl) 1,000 Mg Tablet, 1,000 MG PO BIDAC, (Reported) Entered as Reported by: ANTOINETTE SALGUERO on 11/25/21956 Last Action: Reviewed Pravastatin Sodium (Pravastatin Sodium) 80 Mg Tablet, 80 MG PO HS, (Reported) Entered as Reported by: ANTOINETTE SALGUERO on 11/25/21956 Last Action: Reviewed Discontinued Medications Atorvastatin Calcium (Atorvastatin Calcium) 20 Mg Tablet, (Reported) Discontinued Reason: No Longer Taking Entered as Reported by: DENNISE ALVARADO on 11/08/191847 Last Action: Discontinued Atorvastatin Calcium (Atorvastatin Calcium) 20 Mg Tablet, 20 MG PO DAILY Discontinued Reason: No Longer Taking Prescribed by: JANINE PADILLA on 06/04/212006 Last Action: Discontinued Fenofibrate Nanocrystallized (Fenofibrate) 145 Mg Tablet, (Reported) Discontinued Reason: No Longer Taking Entered as Reported by: DENNISE ALVARADO on 11/08/191847 Last Action: Discontinued Fenofibrate Nanocrystallized (Fenofibrate) 145 Mg Tablet, 145 MG PO DAILY Discontinued Reason: No Longer Taking Prescribed by: JANINE PADILLA on 06/04/212006 Last Action: Discontinued Glipizide (Glipizide) 5 Mg Tablet, (Reported) Discontinued Reason: No Longer Taking Entered as Reported by: SULLY CONDON on 11/08/191943 Last Action: Discontinued Glipizide (Glipizide) 5 Mg Tablet, 5 MG PO BID Discontinued Reason: No Longer Taking Prescribed by: JANINE PADILLA on 06/04/212007 Last Action: Discontinued Lisinopril (Lisinopril) 2.5 Mg Tablet, (Reported) Discontinued Reason: No Longer Taking Entered as Reported by: DENNISE ALVARADO on 11/08/191847 Last Action: Discontinued Metformin HCl (Metformin HCl) 500 Mg Tablet, 1,000 MG PO BID, (Reported) Discontinued Reason: No Longer Taking Entered as Reported by: DENNISE ALVARADO on 11/08/191847 Last Action: Discontinued Metformin HCl (Metformin HCl) 500 Mg Tablet, 500 MG PO BID Discontinued Reason: No Longer Taking Prescribed by: JANINE PADILLA on 06/04/212007 Last Action: Discontinued Ondansetron (Ondansetron Odt) 4 Mg Tab.rapdis, 4 MG PO Q4H Discontinued Reason: No Longer Taking Prescribed by: JANINE PADILLA on 06/04/212004 Last Action: Discontinued Past Ntuqytk-Ujtrmw-Eydajq Hx Reviewed Nursing Assessment Reviewed/Agree w Nursing PMH: Yes Family Medical History Significant Family History: No Pertinent Family Hx Family Medial History: Chronic lymphoid leukemia G8 SISTER, Onset:Adolescence Review of Systems-General Constitutional: dizziness, malaise EENTM: No ear pain, No blurred vision Respiratory: No cough, No phlegm Gastrointestinal: abdominal pain (LUQ), loss of appetite, nausea; No vomiting Genitourinary: No dysuria, No frequency Musculoskeletal: back pain (low back, at night); No joint swelling Skin: No change in color, No change in hair/nails Psychiatric/Neurological: Denies Anxiety, Denies Depressed, Denies Emotional Problems All Other Systems Reviewed Negative Unless Noted: Yes (Negative excepted noted.) Physical Exam-General Problems Physical Exam General Appearance: WD/WN, no apparent distress HEENT: PERRL/EOMI, normal ENT inspection Neck: supple, normal inspection Respiratory: chest non-tender, no respiratory distress, no accessory muscle use Cardiovascular: regular rate, rhythm, no JVD Gastrointestinal: soft; No distended, No guarding (leopoldo in RUQ); tenderness (luq minimal) Rectal: deferred Extremities: non-tender, normal inspection Neurologic/Psychiatric: no motor/sensory deficits, alert, normal mood/affect, oriented x 3 Skin: normal color, warm/dry Lymphatic: no adenopathy Assessment/Plan Assessment/Plan Assessment/Plan LUQ abdominal pain acute pancreatitis elevation of triglycerides DM Patient on clear liquids, told him to take minimal, will advance when pain im proved. Started IV fluids No gallstones so do not need cholecystectomy Supervisory-Addendum Brief Verification & Attestation Participated in pt care: history, MDM, physical Personally performed: exam, history, MDM, supervision of care Care discussed with: Medical Student Procedures: n/a Results interpretation: Verified all documentation Verification and Attestation of Medical Student E/M Service A medical student performed and documented this service in my presence. I revie wed and verified all information documented by the medical student and made modifications to such information, when appropriate. I personally performed the physical exam and medical decision making. Quyen Vidales, Nov 30, 2021,22:49 JOSHUA TINSLEY Nov 30, 2021 10:30 QUYEN VIDALES DO Nov 30, 2021 22:48
[2021-11-30] MEDS: polyethylene glycoL POWDER 17 GM (MIRALAX) PACK PO SCH ×2 (11:06→21:02)
[2021-11-30] MEDS: LACTULOSE SYRUP 10GM/15ML (ENULOSE) 30ML UDC PO SCH ×2 (11:06→21:02)
[2021-11-30] MEDS ORDERED: LACTATED RINGERS 1,000 ML IV ONE (13:10)
[2021-11-30] MEDS: ENOXAPARIN 40 MG/0.4 ML (LOVENOX) SYR SC SCH (16:04)
[2021-11-30] MEDS: LACTATED RINGERS 1,000 ML IV SCH (21:02)
[2021-12-01] MEDS: HYDROcodone/APAP 7.5 MG/325 MG (LORTAB, LORCET PLUS) TABLET PO PRN ×2 (04:26→18:22)
[2021-12-01] MEDS: LACTATED RINGERS 1,000 ML IV SCH ×3 (04:27→20:25)
[2021-12-01] MEDS: MAGNESIUM 1 GM/100 ML IVPB 100 ML IV SCH (04:55)
[2021-12-01] MEDS: inSUlin ASPART (NovoLOG) 1 UNIT/0.01 ML (CHARGE PER UNIT) SC SCH ×4 (05:30→20:34)
[2021-12-01 06:37] LABS: BASOPHILS # (AUTO) 0.1 10^3/uL (0.0-0.1); BASOPHILS % (AUTO) 1 % (0-10); EOSINOPHILS # (AUTO) 0.4 10^3/uL (0.0-0.3); EOSINOPHILS % (AUTO) 6 % (0-10); HEMATOCRIT 41 % (40-54); HEMOGLOBIN 13.4 g/dL (13.3-17.7); LYMPHOCYTES # (AUTO) 1.3 10^3/uL (1.0-4.0); LYMPHOCYTES % (AUTO) 19 % (12-44); MEAN CORPUSCULAR HEMOGLOBIN 25 pg (25-34); MEAN CORPUSCULAR HGB CONC 32 g/dL (32-36); MEAN CORPUSCULAR VOLUME 77 fL (80-99); MEAN PLATELET VOLUME 10.1 fL (9.0-12.2); MONOCYTES # (AUTO) 0.8 10^3/uL (0.0-1.0); MONOCYTES % (AUTO) 11 % (0-12); NEUTROPHILS # (AUTO) 4.1 10^3/uL (1.8-7.8); NEUTROPHILS % (AUTO) 57 % (42-75); PLATELET COUNT 174 10^3/uL (130-400); WHITE BLOOD COUNT 7.2 10^3/uL (4.3-11.0)
[2021-12-01 06:58] LABS: ALBUMIN 2.9 GM/DL (3.2-4.5); BILIRUBIN,TOTAL 0.8 MG/DL (0.1-1.0); CALCIUM 8.6 MG/DL (8.5-10.1); CREATININE SERUM 0.78 MG/DL (0.60-1.30); POTASSIUM 3.7 MMOL/L (3.6-5.0); TOTAL PROTEIN 6.5 GM/DL (6.4-8.2)
--- NOTE | 2021-12-01 07:11 | Progress Note - Surgery ---
Subjective Date Seen by a Provider: Dec 01, 2021 Time Seen by a Provider: 07:11 Subjective/Events-last exam Still with luq abd pain. Tolerating sips of liquids. Pain medications helping control pain. Lipase increasing. WBC normal. Denies n/v fever sweats chills shortness of breath or chest pain. Objective Exam Vital Signs Date Time Temp Pulse Resp B/P (MAP) Pulse Ox O2 Delivery O2 Flow Rate FiO2 12/01/21 00:30 36.6 77 18 122/77 96 Room Air 11/30/21 20:00 Room Air 11/30/21 15:47 36.6 89 18 131/87 95 Room Air 11/30/21 08:00 95 Room Air 11/30/21 07:54 36.8 76 20 105/70 95 Room Air I & O 12/01/21 07:00 Intake Total 2280 ml Balance 2280 ml Capillary Refill : General Appearance: No Apparent Distress, WD/WN, Obese HEENT: PERRL/EOMI, Pharynx Normal Neck: Normal Inspection, Non Tender, Supple Respiratory: Chest Non Tender, No Accessory Muscle Use, No Respiratory Distress Cardiovascular: Regular Rate, Rhythm, No JVD Peripheral Pulses: 2+ Radial Pulses (L) Gastrointestinal: soft; No distended, No guarding (leopoldo in RUQ); tenderness (luq minimal) Extremity: Normal Inspection, Normal Range of Motion, Non Tender, No Calf Tenderness, No Pedal Edema Neurologic/Psychiatric: Alert, Oriented x3, No Motor/Sensory Deficits, Normal Mood/Affect Skin: Normal Color, Warm/Dry Lymphatic: No Adenopathy Results Lab Laboratory Tests 11/30/21 11:12: Glucometer 198H 11/30/21 15:55: Glucometer 177H 11/30/21 20:26: Glucometer 159H 12/01/21 05:24: Glucometer 145H 12/01/21 06:02: White Blood Count 7.2, Red Blood Count 5.40, Hemoglobin 13.4, Hematocrit 41, Mean Corpuscular Volume 77L, Mean Corpuscular Hemoglobin 25, Mean Corpuscular Hemoglobin Concent 32, Red Cell Distribution Width 12.8, Platelet Count 174, Mean Platelet Volume 10.1, Immature Granulocyte % (Auto) 7, Neutrophils (%) (Auto) 57, Lymphocytes (%) (Auto) 19, Monocytes (%) (Auto) 11, Eosinophils (%) (Auto) 6, Basophils (%) (Auto) 1, Neutrophils # (Auto) 4.1, Lymphocytes # (Auto) 1.3, Monocytes # (Auto) 0.8, Eosinophils # (Auto) 0.4H, Basophils # (Auto) 0.1, Immature Granulocyte # (Auto) 0.5H, Sodium Level 134L, Potassium Level 3.7, Chloride Level 102, Carbon Dioxide Level 19L, Anion Gap 13, Blood Urea Nitrogen 9, Creatinine 0.78, Estimat Glomerular Filtration Rate 118, BUN/Creatinine Ratio 12, Glucose Level 145H, Calcium Level 8.6, Corrected Calcium 9.5, Total Biliru bin 0.8, Aspartate Amino Transf (AST/SGOT) 22, Alanine Aminotransferase (ALT/SGPT) 29, Alkaline Phosphatase 100, Total Protein 6.5, Albumin 2.9L, Lipase 245H Microbiology 11/23/21 MRSA Screen - Final, Complete Assessment/Plan Assessment/Plan Assessment/Plan LUQ abdominal pain acute pancreatitis elevation of triglycerides Dm clear liquids, will advance when pain improved. IV fluids Pain control No gallstones so do not need cholecystectomy QUYEN VIDALES DO Dec 01, 2021 07:11
[2021-12-01] MEDS: polyethylene glycoL POWDER 17 GM (MIRALAX) PACK PO SCH ×2 (08:26→20:34)
[2021-12-01] MEDS: PANTOPRAZOLE 40 MG (PROTONIX) VIAL IV SCH (08:26)
[2021-12-01] MEDS: LACTULOSE SYRUP 10GM/15ML (ENULOSE) 30ML UDC PO SCH ×2 (08:26→20:34)
--- NOTE | 2021-12-01 11:41 | Progress Note - Hospitalist ---
[facility] 12/01/21 1141: Subjective HPI/CC On Admission Date Seen by Provider: Dec 01, 2021 Time Seen by Provider: 08:00 Abdominal Pain, pancreatitis Subjective/Events-last exam Patient reports having pain with broth and powerade. Has minimal pain with water. +BM last night/this morning Vital Signs stable, Triglycerides at 260 Review of Systems General: No Chills, No Other (fevers) Pulmonary: No Dyspnea, No Cough Cardiovascular: No: Chest Pain, Palpitations Gastrointestinal: Abdominal Pain; No: Nausea, Vomiting Objective Exam Vital Signs Vital Signs Date Time Temp Pulse Resp B/P (MAP) Pulse Ox O2 Delivery O2 Flow Rate FiO2 12/01/21 08:00 98 Room Air 12/01/21 07:55 36.3 75 18 116/73 Capillary Refill : General Appearance: No Apparent Distress, WD/WN HEENT: PERRL/EOMI, Normal ENT Inspection (No gross deformities) Neck: Non Tender, Supple Respiratory: Chest Non Tender, Lungs Clear, Normal Breath Sounds, No Accessory Muscle Use, No Respiratory Distress Cardiovascular: Regular Rate, Rhythm, Normal Peripheral Pulses (radial pulses 2+ bilaterally) Gastrointestinal: Non Tender (to palpation in the RUQ and RLQ), Soft, Tenderness (to palpation in the LUQ) Extremity: Non Tender, No Calf Tenderness Neurologic/Psychiatric: Alert, Oriented x3, Normal Mood/Affect Skin: Normal Color, Warm/Dry Results/Procedures Lab Laboratory Tests 12/01/21 06:02 Patient resulted labs reviewed. Assessment/Plan Assessment and Plan Assess & Plan/Chief Complaint Acute Pancreatitis Ileus secondary to Pancreatitis (resolved) Hyperlipidemia (currently 260, was 3800+) Uncontrolled Type 2 Diabetes History of pancreatitis Begin encouraging out of bed activity Continue Clear liquids, will advance diet as tolerated Continue IV fluids (lactated ringers) Pain control regimen Continue Bowel Regimen Appreciate General surgery ROSALINDA KIRBY DO 12/02/21 0529: Subjective Subjective/Events-last exam Pt is doing about the same Pain increases when eating Bowels are moving Appreciates surgery consult Clear liquid diet and IV fluid to maintain Review of Systems General: Fatigue, Malaise Objective Exam General Appearance: No Apparent Distress, WD/WN, Chronically ill Respiratory: Lungs Clear, Normal Breath Sounds Cardiovascular: Regular Rate, Rhythm Neurologic/Psychiatric: Alert, Oriented x3 Assessment/Plan Assessment and Plan Assess & Plan/Chief Complaint Pain control Monitor closely Appreciate general surgery Supervisory-Addendum Brief Verification & Attestation Participated in pt care: history, MDM, physical Personally performed: exam, history, MDM, supervision of care Care discussed with: Medical Student Procedures: n/a Results interpretation: Verified all documentation Verification and Attestation of Medical Student E/M Service A medical student performed and documented this service in my presence. I reviewed and verified all information documented by the medical student and made modifications to such information, when appropriate. I personally performed the physical exam and medical decision making. Rosalinda Kirby, Dec 02, 2021,05:28 GABI LI BECKLEY [facility] Dec 01, 2021 11:41 ROSALINDA KIRBY DO Dec 02, 2021 05:29
[2021-12-01] MEDS: ENOXAPARIN 40 MG/0.4 ML (LOVENOX) SYR SC SCH (16:39)
[2021-12-02] MEDS: HYDROcodone/APAP 7.5 MG/325 MG (LORTAB, LORCET PLUS) TABLET PO PRN ×2 (04:18→14:34)
[2021-12-02] MEDS: LACTATED RINGERS 1,000 ML IV SCH (04:18)
[2021-12-02 05:33] LABS: BASOPHILS # (AUTO) 0.1 10^3/uL (0.0-0.1); BASOPHILS % (AUTO) 1 % (0-10); EOSINOPHILS # (AUTO) 0.4 10^3/uL (0.0-0.3); EOSINOPHILS % (AUTO) 6 % (0-10); HEMATOCRIT 40 % (40-54); LYMPHOCYTES # (AUTO) 1.4 10^3/uL (1.0-4.0); LYMPHOCYTES % (AUTO) 21 % (12-44); MEAN CORPUSCULAR HEMOGLOBIN 25 pg (25-34); MEAN CORPUSCULAR HGB CONC 33 g/dL (32-36); MEAN CORPUSCULAR VOLUME 77 fL (80-99); MEAN PLATELET VOLUME 9.9 fL (9.0-12.2); MONOCYTES # (AUTO) 0.6 10^3/uL (0.0-1.0); MONOCYTES % (AUTO) 9 % (0-12); NEUTROPHILS # (AUTO) 3.7 10^3/uL (1.8-7.8); NEUTROPHILS % (AUTO) 56 % (42-75); PLATELET COUNT 197 10^3/uL (130-400); WHITE BLOOD COUNT 6.6 10^3/uL (4.3-11.0)
[2021-12-02 06:00] LABS: ALBUMIN 2.9 GM/DL (3.2-4.5)
[2021-12-02] MEDS: inSUlin ASPART (NovoLOG) 1 UNIT/0.01 ML (CHARGE PER UNIT) SC SCH ×4 (06:00→20:41)
[2021-12-02 06:01] LABS: POTASSIUM 3.8 MMOL/L (3.6-5.0)
[2021-12-02 06:02] LABS: CALCIUM 8.6 MG/DL (8.5-10.1)
[2021-12-02 06:03] LABS: TOTAL PROTEIN 6.4 GM/DL (6.4-8.2)
[2021-12-02 06:05] LABS: BILIRUBIN,TOTAL 0.6 MG/DL (0.1-1.0)
[2021-12-02 06:06] LABS: CREATININE SERUM 0.78 MG/DL (0.60-1.30)
--- NOTE | 2021-12-02 07:31 | Progress Note - Surgery ---
LIBRATaeJOSHUA ERIC 12/02/21 0731: Subjective Date Seen by a Provider: Dec 02, 2021 Time Seen by a Provider: 07:26 Subjective/Events-last exam Upon follow-up for acute pancreatitis and abdominal pain, David states he is gradually feeling improved. He reports a BM yesterday, and that pain is well- managed with medication; however, at its worst, the pain is a 6/10, and will interrupt sleep. David denies any N, V, or fevers. Abdomen is soft, and TTP in the LUQ; bowel sounds are present. Review of Systems General: Fatigue, Malaise HEENT: No Eye Pain, No Ear Pain Pulmonary: No Dyspnea, No Cough Cardiovascular: No: Palpitations Gastrointestinal: Abdominal Pain; No: Nausea, Vomiting Genitourinary: No Dysuria; Frequency Musculoskeletal: No: neck pain, back pain Neurological: No: Weakness, Numbness Focused Exam Respiratory: Chest Non Tender, Lungs Clear, Normal Breath Sounds, No Accessory Muscle Use, No Respiratory Distress Cardiovascular: Regular Rate, Rhythm, No Edema, No Gallop, No JVD, No Murmur, Normal Peripheral Pulses Peripheral Pulses: 2+ Radial Pulses (R) Skin: normal color, warm/dry Objective Exam Vital Signs Date Time Temp Pulse Resp B/P (MAP) Pulse Ox O2 Delivery O2 Flow Rate FiO2 12/01/21 23:06 36.8 63 18 112/81 98 Room Air 12/01/21 20:55 Room Air 12/01/21 16:00 36.5 77 18 122/74 97 Room Air 12/01/21 08:00 98 Room Air 12/01/21 07:55 36.3 75 18 116/73 98 Room Air I & O 12/02/21 07:00 Intake Total 3821 ml Balance 3821 ml Capillary Refill : General Appearance: No Apparent Distress, WD/WN, Chronically ill HEENT: PERRL/EOMI, Normal ENT Inspection Neck: Non Tender, Supple Respiratory: Lungs Clear, Normal Breath Sounds Cardiovascular: Regular Rate, Rhythm, No Edema, No Gallop, Normal Peripheral Pulses Peripheral Pulses: 2+ Radial Pulses (R) Gastrointestinal: normal bowel sounds, soft; No distended, No guarding; tenderness (luq minimal) Extremity: Normal Range of Motion, Non Tender Neurologic/Psychiatric: Alert, Oriented x3 Skin: Normal Color, Warm/Dry Lymphatic: No Adenopathy Results Lab Laboratory Tests 12/01/21 11:00: Glucometer 241H 12/01/21 16:31: Glucometer 180H 12/01/21 20:00: Glucometer 191H 12/02/21 05:20: White Blood Count 6.6, Red Blood Count 5.22, Hemoglobin 13.0L, Hematocrit 40, Mean Corpuscular Volume 77L, Mean Corpuscular Hemoglobin 25, Mean Corpuscular Hemoglobin Concent 33, Red Cell Distribution Width 12.7, Platelet Count 197, Mean Platelet Volume 9.9, Immature Granulocyte % (Auto) 7, Neutrophils (%) (Auto) 56, Lymphocytes (%) (Auto) 21, Monocytes (%) (Auto) 9, Eosinophils (%) (Auto) 6, Basophils (%) (Auto) 1, Neutrophils # (Auto) 3.7, Lymphocytes # (Auto) 1.4, Monocytes # (Auto) 0.6, Eosinophils # (Auto) 0.4H, Basophils # (Auto) 0.1, Immature Granulocyte # (Auto) 0.4H, Sodium Level 134L, Potassium Level 3.8, Chloride Level 103, Carbon Dioxide Level 20L, Anion Gap 11, Blood Urea Nitrogen 6L, Creatinine 0.78, Estimat Glomerular Filtration Rate 118, BUN/Creatinine Ratio 8, Glucose Level 147H, Calcium Level 8.6, Corrected Calcium 9.5, Total Bilirubin 0.6, Aspartate Amino Transf (AST/SGOT) 22, Alanine Aminotransferase (ALT/SGPT) 27, Alkaline Phosphatase 82, Total Protein 6.4, Albumin 2.9L, Lipase 236H Microbiology 11/23/21 MRSA Screen - Final, Complete Assessment/Plan Assessment/Plan Assessment/Plan LUQ abdominal pain acute pancreatitis elevation of triglycerides Dm clear liquids, will advance when pain improved. IV fluids Pain control No gallstones so do not need cholecystectomy QUYEN ZURITA DO 12/02/21 2001: Subjective Subjective/Events-last exam Patient states he is feeling a bit better. Having less abdominal pain. Patient states at worst is a 6 out of 10 at this time when he is having it. Pain is on the left upper quadrant. Patient is tolerating liquid diet. Patient is having bowel function. Denies any nausea vomiting fever sweats chills shortness of breath or chest pain at this time. Objective Exam General Appearance: No Apparent Distress, WD/WN HEENT: PERRL/EOMI, Normal ENT Inspection Neck: Full Range of Motion, Non Tender, Supple Respiratory: Chest Non Tender, No Accessory Muscle Use, No Respiratory Distress Cardiovascular: Regular Rate, Rhythm, No JVD Gastrointestinal: soft, tenderness (luq minimal) Extremity: Normal Range of Motion, Non Tender Neurologic/Psychiatric: Alert, Oriented x3 Skin: Normal Color, Warm/Dry Lymphatic: No Adenopathy Assessment/Plan Assessment/Plan Assessment/Plan LUQ abdominal pain acute pancreatitis elevation of triglycerides Dm clear liquids, can advance diet if pain continues to improve Pain control No gallstones so do not need cholecystectomy Supervisory-Addendum Brief Verification & Attestation Participated in pt care: history, MDM, physical Personally performed: exam, history, MDM, supervision of care Care discussed with: Medical Student Procedures: n/a Results interpretation: Verified all documentation Verification and Attestation of Medical Student E/M Service A medical student performed and documented this service in my presence. I reviewed and verified all information documented by the medical student and made modifications to such information, when appropriate. I personally performed the physical exam and medical decision making. Quyen Zurita, Dec 02, 2021,18:35 JOSHUA TINSLEY Dec 02, 2021 07:31 QUYEN ZURITA DO Dec 02, 2021 18:35
[2021-12-02] MEDS: polyethylene glycoL POWDER 17 GM (MIRALAX) PACK PO SCH ×2 (09:50→20:40)
[2021-12-02] MEDS: PANTOPRAZOLE 40 MG (PROTONIX) VIAL IV SCH (09:50)
[2021-12-02] MEDS: LACTULOSE SYRUP 10GM/15ML (ENULOSE) 30ML UDC PO SCH ×2 (09:51→20:40)
--- NOTE | 2021-12-02 12:49 | Progress Note - Hospitalist ---
G[facility] 12/02/21 1249: Subjective HPI/CC On Admission Date Seen by Provider: Dec 02, 2021 Time Seen by Provider: 09:10 Abdominal Pain, pancreatitis Subjective/Events-last exam Overall doing much better today Tolerating Broth and Powerade Was having multiple BM last night and declined bowel regiment meds nutrition recommends low carb diet, difficult due to diagnosis Compliant with Out of Bed Activity Review of Systems General: No Chills, No Other (fevers) Pulmonary: No Dyspnea, No Cough Cardiovascular: No: Chest Pain, Palpitations Gastrointestinal: Abdominal Pain; No: Nausea, Vomiting Objective Exam Vital Signs Vital Signs Date Time Temp Pulse Resp B/P (MAP) Pulse Ox O2 Delivery O2 Flow Rate FiO2 12/02/21 08:00 Room Air 12/02/21 07:51 36.1 64 20 113/76 97 Capillary Refill : General Appearance: No Apparent Distress, WD/WN HEENT: PERRL/EOMI, TMs Normal, Moist Mucous Membranes Neck: Non Tender, Supple Respiratory: Chest Non Tender, Lungs Clear, Normal Breath Sounds, No Accessory Muscle Use, No Respiratory Distress Cardiovascular: Regular Rate, Rhythm, No Edema, No Murmur, Normal Peripheral Pulses (Radial Pulses 2+ bilaterally) Gastrointestinal: Non Tender (In RUQ and RLQ), Soft; No Distended, No Guarding; Tenderness (In LUQ) Extremity: Non Tender, No Calf Tenderness Neurologic/Psychiatric: Alert, Oriented x3, Normal Mood/Affect Skin: Normal Color, Warm/Dry Results/Procedures Lab Laboratory Tests 12/02/21 05:20 Patient resulted labs reviewed. Assessment/Plan Assessment and Plan Assess & Plan/Chief Complaint Acute Pancreatitis Ileus secondary to Pancreatitis (resolved) Hyperlipidemia (currently 260, was 3800+) Uncontrolled Type 2 Diabetes History of pancreatitis AM Labs tomorrow (12/03) Plan is discharge tomorrow if patient continues to progress appropriately Continue out of bed activity Continue Clear liquids, will advance diet as tolerated Discontinue fluids Pain control regimen Appreciate General surgery ROSALINDA KIRBY DO 12/03/21 0611: Subjective Subjective/Events-last exam Pain is improved Recommend clear liquid diet until first of the week at bedside Checked meds and labs Objective Exam General Appearance: No Apparent Distress, WD/WN, Chronically ill Assessment/Plan Assessment and Plan Assess & Plan/Chief Complaint Discharge plan for tomorrow Supervisory-Addendum Brief Verification & Attestation Participated in pt care: history, MDM, physical Personally performed: exam, history, MDM, supervision of care Care discussed with: Medical Student Procedures: n/a Results interpretation: Verified all documentation Verification and Attestation of Medical Student E/M Service A medical student performed and documented this service in my presence. I reviewed and verified all information documented by the medical student and made modifications to such information, when appropriate. I personally performed the physical exam and medical decision making. Rosalinda Kirby, Dec 03, 2021,06:10 [facility] Dec 02, 2021 12:49 ROSALINDA KIRBY DO Dec 03, 2021 06:11
[2021-12-02] MEDS: ENOXAPARIN 40 MG/0.4 ML (LOVENOX) SYR SC SCH (14:34)
[2021-12-03] MEDS: inSUlin ASPART (NovoLOG) 1 UNIT/0.01 ML (CHARGE PER UNIT) SC SCH ×2 (05:53→12:37)
[2021-12-03 06:30] LABS: BASOPHILS # (AUTO) 0.1 10^3/uL (0.0-0.1); BASOPHILS % (AUTO) 1 % (0-10); EOSINOPHILS # (AUTO) 0.4 10^3/uL (0.0-0.3); EOSINOPHILS % (AUTO) 6 % (0-10); HEMATOCRIT 45 % (40-54); HEMOGLOBIN 14.5 g/dL (13.3-17.7); LYMPHOCYTES # (AUTO) 1.3 10^3/uL (1.0-4.0); LYMPHOCYTES % (AUTO) 21 % (12-44); MEAN CORPUSCULAR HEMOGLOBIN 25 pg (25-34); MEAN CORPUSCULAR HGB CONC 32 g/dL (32-36); MEAN CORPUSCULAR VOLUME 77 fL (80-99); MEAN PLATELET VOLUME 9.5 fL (9.0-12.2); MONOCYTES # (AUTO) 0.5 10^3/uL (0.0-1.0); MONOCYTES % (AUTO) 8 % (0-12); NEUTROPHILS # (AUTO) 3.5 10^3/uL (1.8-7.8); NEUTROPHILS % (AUTO) 58 % (42-75); PLATELET COUNT 198 10^3/uL (130-400)
[2021-12-03 06:54] LABS: ALBUMIN 3.1 GM/DL (3.2-4.5); BILIRUBIN,TOTAL 0.6 MG/DL (0.1-1.0); CREATININE SERUM 0.8 MG/DL (0.60-1.30); POTASSIUM 3.8 MMOL/L (3.6-5.0); TOTAL PROTEIN 6.9 GM/DL (6.4-8.2)
[2021-12-03 07:30] VITALS: BP 114/73
--- NOTE | 2021-12-03 08:38 | Progress Note - Surgery ---
JOSHUA TINSLEY 12/03/21 0838: Subjective Date Seen by a Provider: Dec 03, 2021 Time Seen by a Provider: 08:37 Subjective/Events-last exam Upon follow-up for acute pancreatitis, David is feeling improved today. He states his abdominal pain is improving, and denies any N/V. He states he had a bowel movement at 4am. He reports that he feels ready to go home. Review of Systems General: No Fatigue, No Malaise HEENT: No Eye Pain Pulmonary: No Dyspnea; Cough Cardiovascular: No: Chest Pain Gastrointestinal: No: Nausea, Vomiting, Abdominal Pain Genitourinary: No Dysuria, No Frequency Musculoskeletal: No: arm pain, leg pain Neurological: No: Weakness, Numbness Focused Exam Respiratory: Chest Non Tender, Lungs Clear, Normal Breath Sounds, No Accessory Muscle Use, No Respiratory Distress Cardiovascular: Regular Rate, Rhythm, No Edema, No Gallop, No Murmur Peripheral Pulses: 2+ Radial Pulses (R) Skin: normal color, warm/dry Objective Exam Vital Signs Date Time Temp Pulse Resp B/P (MAP) Pulse Ox O2 Delivery O2 Flow Rate FiO2 12/03/21 00:00 36.4 68 17 113/72 97 Room Air 12/02/21 20:52 Room Air 12/02/21 16:00 36.6 76 18 109/67 95 Room Air I & O 12/03/21 07:00 Intake Total 3108 ml Balance 3108 ml Capillary Refill : General Appearance: No Apparent Distress, WD/WN, Chronically ill HEENT: PERRL/EOMI, Normal ENT Inspection Neck: Full Range of Motion, Non Tender, Supple Respiratory: Chest Non Tender, No Accessory Muscle Use, No Respiratory Distress Cardiovascular: Regular Rate, Rhythm, No Edema, No Gallop, No JVD Peripheral Pulses: 2+ Radial Pulses (R) Gastrointestinal: soft, tenderness (LUQ, LLQ--> much improved, still mildly tender to palpation) Extremity: Normal Capillary Refill, Normal Range of Motion, Non Tender, No Pedal Edema Neurologic/Psychiatric: Alert, Oriented x3, No Motor/Sensory Deficits, Normal Mood/Affect Skin: Normal Color, Warm/Dry Lymphatic: No Adenopathy Results Lab Laboratory Tests 12/02/21 10:53: Glucometer 187H 12/02/21 15:25: Glucometer 179H 12/02/21 19:58: Glucometer 204H 12/03/21 05:35: Glucometer 135H 12/03/21 06:10: White Blood Count 6.0, Red Blood Count 5.81H, Hemoglobin 14.5, Hematocrit 45, Mean Corpuscular Volume 77L, Mean Corpuscular Hemoglobin 25, Mean Corpuscular Hemoglobin Concent 32, Red Cell Distribution Width 12.9, Platelet Count 198, Mean Platelet Volume 9.5, Immature Granulocyte % (Auto) 7, Neutrophils (%) (Auto) 58, Lymphocytes (%) (Auto) 21, Monocytes (%) (Auto) 8, Eosinophils (%) (Auto) 6, Basophils (%) (Auto) 1, Neutrophils # (Auto) 3.5, Lymphocytes # (Auto) 1.3, Monocytes # (Auto) 0.5, Eosinophils # (Auto) 0.4H, Basophils # (Auto) 0.1, Immature Granulocyte # (Auto) 0.4H, Sodium Level 133L, Potassium Level 3.8, Chloride Level 102, Carbon Dioxide Level 19L, Anion Gap 12, Blood Urea Nitrogen 7, Creatinine 0.80, Estimat Glomerular Filtration Rate 117, BUN/Creatinine Ratio 9, Glucose Level 140H, Calcium Level 9.0, Corrected Calcium 9.7, Total Bilirubin 0.6, Aspartate Amino Transf (AST/SGOT) 23, Alanine Aminotransferase (ALT/SGPT) 29, Alkaline Phosphatase 81, Total Protein 6.9, Albumin 3.1L, Lipase 281H Microbiology 11/23/21 MRSA Screen - Final, Complete Assessment/Plan Assessment/Plan Assessment/Plan LUQ abdominal pain acute pancreatitis elevation of triglycerides Dm clear liquids, can advance diet if pain continues to improve Pain control No gallstones so do not need cholecystectomy QUYEN ZURITA DO 12/03/21 1529: Subjective Subjective/Events-last exam Patient feeling better today. Abdominal pain continues to improve. Denies any nausea or vomiting. Patient with bowel function. Denies nausea vomiting fever sweats chills shortness of breath or chest pain at this time. Objective Exam General Appearance: No Apparent Distress, WD/WN HEENT: PERRL/EOMI Neck: Non Tender, Supple Respiratory: Chest Non Tender, No Accessory Muscle Use, No Respiratory Distress Cardiovascular: Regular Rate, Rhythm, No JVD Gastrointestinal: soft, tenderness (Minimal left upper quadrant) Extremity: Normal Range of Motion, Non Tender Neurologic/Psychiatric: Alert, Oriented x3, No Motor/Sensory Deficits, Normal Mood/Affect Skin: Normal Color, Warm/Dry Lymphatic: No Adenopathy Assessment/Plan Assessment/Plan Assessment/Plan LUQ abdominal pain acute pancreatitis elevation of triglycerides Dm Can advance diet as tolerates. If pain would back off. No gallstones so do not need cholecystectomy Supervisory-Addendum Brief Verification & Attestation Participated in pt care: history, MDM, physical Personally performed: exam, history, MDM, supervision of care Care discussed with: Medical Student Procedures: n/a Results interpretation: Verified all documentation Verification and Attestation of Medical Student E/M Service A medical student performed and documented this service in my presence. I reviewed and verified all information documented by the medical student and made modifications to such information, when appropriate. I personally performed the physical exam and medical decision making. Quyen Zurita, Dec 03, 2021,15:28 JOSHUA TINSLEY Dec 03, 2021 08:38 QUYEN ZURITA DO Dec 03, 2021 15:29
[2021-12-03] MEDS: PANTOPRAZOLE 40 MG (PROTONIX) VIAL IV SCH (09:27)
[2021-12-03] MEDS: LACTULOSE SYRUP 10GM/15ML (ENULOSE) 30ML UDC PO SCH (09:27)
[2021-12-03] MEDS: polyethylene glycoL POWDER 17 GM (MIRALAX) PACK PO SCH (09:27)
[2021-12-03] MEDS: HYDROcodone/APAP 7.5 MG/325 MG (LORTAB, LORCET PLUS) TABLET PO PRN (09:27)
[2021-12-03] MEDS ORDERED: ONDA4TAB11 PO (10:47)
[2021-12-03] MEDS ORDERED: LISI2.5T13 PO (10:47)
[2021-12-03] MEDS ORDERED: PANT40TA2 PO (10:47)
[2021-12-03] MEDS ORDERED: POLY17PO54 PO (10:47)
[2021-12-03] MEDS ORDERED: GLIP10TA13 PO (10:47)
[2021-12-03] MEDS ORDERED: METF-399 PO (10:47)
[2021-12-03] MEDS ORDERED: HYDR-34 PO (10:47)
[2021-12-03] MEDS ORDERED: PRAV80TA2 PO (10:47)
--- NOTE | 2021-12-03 10:50 | Discharge Summary ---
Discharge Summary Hospital Course Was the Problem List Reviewed?: Yes Problems/Dx: (1) Acute pancreatitis Status: Acute Qualifiers: Qualified Codes: K85.80 - Other acute pancreatitis without necrosis or infection (2) CHLOE (acute kidney injury) Status: Acute (3) Uncontrolled diabetes mellitus Status: Acute Qualifiers: Qualified Codes: E11.65 - Type 2 diabetes mellitus with hyperglycemia (4) Hypertriglyceridemia Status: Chronic (5) Left sided abdominal pain (6) Hyponatremia (7) Metabolic acidosis Status: Resolved Hospital Course Date of Admission: Nov 23, 2021 at 15:30 Admission Diagnosis : Family Physician/Provider: Zane Greer Date of Discharge: 12/03/21 Discharge Diagnosis: Acute on chronic pancreatitis, diabetes [id number], hypertriglyceridemia Hospital Course: Brief Hospital Course: Patient was admitted on 11/23/2021 and discharged 12/03/2021. Patient was admitted from the ED to the med/surg unit. Patient received CBC, CMP, Lipase, and CT scan. Patients CMP was significant for hyponatremia, however, this was likely pseudohypernatremia due to high triglycerides (3874), Lipase was 6796, and CT revealed peripancreatic inflammatory stranding and fullness of the pancreatic tail. Patient was admitted to medicine and consulted general surgery on 11/30. Hospital interventions included medical management of pancreatitis and other comorbidities. Patient was started on a clear liquid diet on 11/24. US on 11/26 was insignificant for biliary disease. A new CT on 11/29 showed continued findings of acute pancreatitis with increase inflammation and no well-formed fluid collection. On discharge, patient was sent home. Patient will continue pain meds, and adequate oral intake. This summary does not include the entirety of the patient's visit and is only a short description of pertinent lab values and information. For the complete hospital course, please refer to the patient's chart. Date of Admission: 11/23/2021 Date of Discharge: 12/03/2021 Attending Physician: Dr. Rosalinda Siddiqui DO Admission Diagnosis: Acute Pancreatitis Discharge Diagnosis: hypertriglyceridemia, DM type 2 Consultations: Gen Surg Procedures: None GABI [facility] Labs and Pending Lab Test: Laboratory Tests 12/02/21 10:53: Glucometer 187H 12/02/21 15:25: Glucometer 179H 12/02/21 19:58: Glucometer 204H 12/03/21 05:35: Glucometer 135H 12/03/21 06:10: White Blood Count 6.0, Red Blood Count 5.81H, Hemoglobin 14.5, Hematocrit 45, Mean Corpuscular Volume 77L, Mean Corpuscular Hemoglobin 25, Mean Corpuscular Hemoglobin Concent 32, Red Cell Distribution Width 12.9, Platelet Count 198, Mean Platelet Volume 9.5, Immature Granulocyte % (Auto) 7, Neutrophils (%) (Auto) 58, Lymphocytes (%) (Auto) 21, Monocytes (%) (Auto) 8, Eosinophils (%) (Auto) 6, Basophils (%) (Auto) 1, Neutrophils # (Auto) 3.5, Lymphocytes # (Auto) 1.3, Monocytes # (Auto) 0.5, Eosinophils # (Auto) 0.4H, Basophils # (Auto) 0.1, Immature Granulocyte # (Auto) 0.4H, Sodium Level 133L, Potassium Level 3.8, Chloride Level 102, Carbon Dioxide Level 19L, Anion Gap 12, Blood Urea Nitrogen 7, Creatinine 0.80, Estimat Glomerular Filtration Rate 117, BUN/Creatinine Ratio 9, Glucose Level 140H, Calcium Level 9.0, Corrected Calcium 9.7, Total Bilirubin 0.6, Aspartate Amino Transf (AST/SGOT) 23, Alanine Aminotransferase (ALT/SGPT) 29, Alkaline Phosphatase 81, Total Protein 6.9, Albumin 3.1L, Lipase 281H Microbiology 11/23/21 MRSA Screen - Final, Complete Home Meds Active Ondansetron Odt (Ondansetron) 4 Mg Tab.rapdis 4 Mg PO Q6H Protonix (Pantoprazole Sodium) 40 Mg Tablet.dr 40 Mg PO DAILY Polyethylene Glycol 3350 17 Gm Powd.pack 17 Gm PO BID HYDROcodone/APAP 7.5/325 TAB (Acetaminophen/Hydrocodone Bitart) 1 Ea Tablet 1 Ea PO Q6HR PRN Glipizide 10 Mg Tablet 10 Mg PO BIDAC LAST FILLED 08-24-2021 #60/30 DAY SUPPLY Lisinopril 2.5 Mg Tablet 2.5 Mg PO DAILY LAST FILLED 08-24-2021 #30/30 DAY SUPPLY Metformin HCl 1,000 Mg Tablet 1,000 Mg PO BIDAC LAST FILLED 08-24-2021 #60/30 DAY SUPPLY Pravastatin Sodium 80 Mg Tablet 80 Mg PO HS LAST FILLED 08-24-2021 #30/30 DAY SUPPLY Reported Invokana (Canagliflozin) 300 Mg Tablet 300 Mg PO DAILY LAST FILLED 08-24-2021 #30 DAY SUPPLY Assessment/Pt Instructions PCP in 1 week Discharge Planning: <30 minutes discharge planning Discharge Instructions Discharge Diet: ADA Diet Discharge Physical Examination Vital Signs Vital Signs Date Time Temp Pulse Resp B/P (MAP) Pulse Ox O2 Delivery O2 Flow Rate FiO2 12/03/21 08:00 Room Air 12/03/21 07:30 36.6 7 18 114/73 97 General Appearance: No Apparent Distress, WD/WN, Chronically ill, Obese Allergies: Coded Allergies: No Known Drug Allergies (Unverified , 11/08/19) Discharge Summary Date of Admission Nov 23, 2021 at 15:30 Date of Discharge Discharge Date: Dec 03, 2021 Discharge Diagnosis Discharge plan for tomorrow ROSALINDA SIDDIQUI DO Dec 03, 2021 10:50
--- NOTE | 2021-12-03 11:32 | Progress Note ---
GABI [facility] 12/03/21 1132: Progress Note Brief Hospital Course: Patient was admitted on 11/23/2021 and discharged 12/03/2021. Patient was admitted from the ED to the med/surg unit. Patient received CBC, CMP, Lipase, and CT scan. Patients CMP was significant for hyponatremia, however, this was likely pseudohypernatremia due to high triglycerides (3874), Lipase was 6796, and CT revealed peripancreatic inflammatory stranding and fullness of the pancreatic tail. Patient was admitted to medicine and consulted general surgery on 11/30. Hospital interventions included medical management of pancreatitis and other comorbidities. Patient was started on a clear liquid diet on 11/24. US on 11/26 was insignificant for biliary disease. A new CT on 11/29 showed continued findings of acute pancreatitis with increase inflammation and no well-formed fluid collection. On discharge, patient was sent home. Patient will continue pain meds, and adequate oral intake. This summary does not include the entirety of the patient's visit and is only a short description of pertinent lab values and information. For the complete hospital course, please refer to the patient's chart. Date of Admission: 11/23/2021 Date of Discharge: 12/03/2021 Attending Physician: Dr. Rosalinda Siddiqui DO Admission Diagnosis: Acute Pancreatitis Discharge Diagnosis: hypertriglyceridemia, DM type 2 Consultations: Gen Surg Procedures: None ROSALINDA SIDDIQUI DO 12/04/21 0624: Supervisory-Addendum Brief Verification & Attestation Participated in pt care: history, MDM, physical Personally performed: exam, history, MDM, supervision of care Care discussed with: Medical Student Procedures: n/a Results interpretation: Verified all documentation Verification and Attestation of Medical Student E/M Service A medical student performed and documented this service in my presence. I reviewed and verified all information documented by the medical student and made modifications to such information, when appropriate. I personally performed the physical exam and medical decision making. Rosalinda Siddiqui, Dec 04, 2021,06:24 [facility] Dec 03, 2021 11:32 ROSALINDA SIDDIQUI DO Dec 04, 2021 06:24
== END 2021-12-03 13:05 | disposition home or self-care (01) | DRG 439 ==
LOC: EDUNIT# 13:13 → ER 13:15 → ICU 15:30 → UNDOADMIN 15:30 → 4TH 15:30 → CSD 11-24 18:09 → 4TH 11-26 17:45
PROVIDERS: ADMIT Family Medicine; ATTEND Internal Medicine
DX: K85.90 Acute pancreatitis without necrosis or infection, unspecified (principal); N17.9 Acute kidney failure, unspecified; E87.1 Hypo-osmolality and hyponatremia; E87.2 Acidosis; K56.7 Ileus, unspecified; K86.1 Other chronic pancreatitis; E11.65 Type 2 diabetes mellitus with hyperglycemia; E78.1 Pure hyperglyceridemia; E86.0 Dehydration; Z79.84 Long term (current) use of oral hypoglycemic drugs
CPT/HCPCS: 36415; 74160; 74177; 76705; 80048; 80053; 80061; 81000; 82947; 83036; 83690; 83735; 84100; 84478; 85007; 85025; 85027; 87081; 93005; 96374; 96375

== ENCOUNTER 2022-07-06 15:18 | Emergency (ER) | payer BC ==
[~2022-07-06] VITALS: Ht 160 cm; Wt 85.0 kg
[~2022-07-06 15:18] MED LIST changes: +CANA300T PO; +GLIP10TA13 PO; +HYDR-34 PO; +LISI2.5T13 PO; +METF-399 PO; +PANT40TA2 PO; +POLY17PO54 PO; +PRAV80TA2 PO
[2022-07-06] MEDS ORDERED: NS IV 1000 ML 1,000 ML IV STA (15:35)
[2022-07-06] MEDS ORDERED: morphine INJ 10 MG/ML 1ML (SYR OR VIAL) IVP STA (15:35)
--- NOTE | 2022-07-06 15:38 | ED Abdominal Pain ---
General Chief Complaint: Abdominal/GI Problems Stated Complaint: ABD PAIN Source of Information: Patient Exam Limitations: No Limitations History of Present Illness Date Seen by Provider: Jul 06, 2022 Time Seen by Provider: 15:20 Initial Comments 37-year-old male with past medical history of hypertension, hyperlipidemia, diabetes, and previous pancreatitis coming in due to epigastric pain and nausea and vomiting. The pain started last night, sharp, constant, severe. It is worse with sitting forward, better when lying back. He says it feels similar to prior episodes of pancreatitis. He has not drink any alcohol. He has been admitted to the hospital before with very high triglycerides. Denies any fever, cough, chest pain, shortness of breath, weakness, numbness, dysuria, or any other concerns. Allergies and Home Medications Allergies Coded Allergies: No Known Drug Allergies (Unverified , 11/08/19) Patient Home Medication List Home Medication List Reviewed: Yes Glipizide (Glipizide) 10 Mg Tablet, 10 MG PO BIDAC Prescribed by: HERSON KIRBY on 12/03/21 104 Hydrocodone Bit/Acetaminophen (HYDROcodone/APAP 7.5/325 TAB) 1 Ea Tablet, 1 EA PO Q6HR PRN for PAIN-MODERATE (5-7) Prescribed by: HERSON KIRBY on 12/03/21 104 Lisinopril (Lisinopril) 2.5 Mg Tablet, 2.5 MG PO DAILY Prescribed by: HERSON KIRBY on 12/03/21 104 Metformin HCl (Metformin HCl) 1,000 Mg Tablet, 1,000 MG PO BIDAC Prescribed by: HERSON KIRBY on 12/03/21 104 Ondansetron (Ondansetron Odt) 4 Mg Tab.rapdis, 4 MG PO Q6H Prescribed by: HERSON KIRBY on 12/03/21 104 Pantoprazole Sodium (Protonix) 40 Mg Tablet.dr, 40 MG PO DAILY Prescribed by: HERSON KIRBY on 12/03/21 104 Polyethylene Glycol 3350 (Polyethylene Glycol 3350) 17 Gm Powd.pack, 17 GM PO BID Prescribed by: HERSON KIRBY on 12/03/21 104 Pravastatin Sodium (Pravastatin Sodium) 80 Mg Tablet, 80 MG PO HS Prescribed by: HERSON KIRBY on 12/03/21 104 Review of Systems Review of Systems Constitutional: No fever EENTM: No Blurred Vision Respiratory: Denies Cough Cardiovascular: Denies Chest Pain Gastrointestinal: Abdominal Pain, Nausea, Vomiting Genitourinary: No Symptoms Reported Musculoskeletal: no symptoms reported Skin: no symptoms reported Psychiatric/Neurological: No Symptoms Reported Endocrine: No Symptoms Reported Hematologic/Lymphatic: No Symptoms Reported All Other Systems Reviewed Negative Unless Noted: Yes Past Qlmllmp-Azjguw-Aswhif Hx Patient Social History Tobacco Use?: No Substance use?: No Immunizations Up To Date First/Initial COVID19 Vaccinat: AUG Second COVID19 Vaccination Louis: SEP Third COVID19 Vaccination Date: AUG Seasonal Allergies Seasonal Allergies: No Past Medical History Surgery/Hospitalization HX: RIGHT INGUINAL HERNIA REPAIR Surgeries: Yes (HERNIA) Abdominal Respiratory: No Cardiac: Yes High Cholesterol, Hypertension Neurological: No Genitourinary: No Gastrointestinal: Yes Pancreatitis Musculoskeletal: No Endocrine: Yes Diabetes, Non-Insulin dep HEENT: No Cancer: No Psychosocial: No Integumentary: No Family Medical History Chronic lymphoid leukemia G8 SISTER, Onset:Adolescence No Pertinent Family Hx Physical Exam Vital Signs Vital Signs - First Documented 07/06/22 15:32 Pulse 88 Resp 13 B/P (MAP) 127/97 (107) Pulse Ox 94 O2 Delivery Room Air Capillary Refill : Height/Weight/BMI Height: '" Weight: lbs. oz. kg; 31.95 BMI Method: General Appearance: WD/WN, no apparent distress HEENT: PERRL/EOMI, normal ENT inspection, pharynx normal Neck: non-tender, full range of motion, supple, normal inspection Respiratory: chest non-tender, lungs clear, normal breath sounds, no respiratory distress, no accessory muscle use Cardiovascular: regular rate, rhythm, no edema, no murmur Gastrointestinal: normal bowel sounds, soft; No distended, No guarding; tenderness Extremities: normal range of motion, non-tender, normal inspection, no pedal edema, no calf tenderness, normal capillary refill Back: normal inspection, no CVA tenderness Neurologic/Psychiatric: no motor/sensory deficits, alert, normal mood/affect Skin: normal color, warm/dry Lymphatic: no adenopathy Progress/Results/Core Measures Results/Orders Lab Results Laboratory Tests Test 07/06/22 15:45 Range/Units White Blood Count 8.2 4.3-11.0 10^3/uL Red Blood Count 7.00 H 4.30-5.52 10^6/uL Hemoglobin 17.9 H 13.3-17.7 g/dL Hematocrit 52 40-54 % Mean Corpuscular Volume 74 L 80-99 fL Mean Corpuscular Hemoglobin 26 25-34 pg Mean Corpuscular Hemoglobin Concent 34 32-36 g/dL Red Cell Distribution Width 14.1 10.0-14.5 % Platelet Count 108 L 130-400 10^3/uL Mean Platelet Volume 11.2 9.0-12.2 fL Immature Granulocyte % (Auto) 1 % Neutrophils (%) (Auto) 81 H 42-75 % Lymphocytes (%) (Auto) 10 L 12-44 % Monocytes (%) (Auto) 5 0-12 % Eosinophils (%) (Auto) 3 0-10 % Basophils (%) (Auto) 0 0-10 % Neutrophils # (Auto) 6.6 1.8-7.8 10^3/uL Lymphocytes # (Auto) 0.8 L 1.0-4.0 10^3/uL Monocytes # (Auto) 0.4 0.0-1.0 10^3/uL Eosinophils # (Auto) 0.3 0.0-0.3 10^3/uL Basophils # (Auto) 0.0 0.0-0.1 10^3/uL Immature Granulocyte # (Auto) 0.1 0.0-0.1 10^3/uL Percent Immature Platelet Fraction 6.7 0.0-7.6 % Sodium Level 131 L 135-145 MMOL/L Potassium Level 4.1 3.6-5.0 MMOL/L Chloride Level 99 98-107 MMOL/L Carbon Dioxide Level 16 L 21-32 MMOL/L Anion Gap 16 H 5-14 MMOL/L Blood Urea Nitrogen 23 H 7-18 MG/DL Creatinine 1.03 0.60-1.30 MG/DL Estimat Glomerular Filtration Rate 95 BUN/Creatinine Ratio 22 Glucose Level 257 H 70-105 MG/DL Calcium Level 9.1 8.5-10.1 MG/DL Corrected Calcium 8.8 8.5-10.1 MG/DL Total Bilirubin 0.9 0.1-1.0 MG/DL Aspartate Amino Transf (AST/SGOT) 50 H 5-34 U/L Alanine Aminotransferase (ALT/SGPT) 55 0-55 U/L Alkaline Phosphatase 71 40-136 U/L Total Protein 9.4 H 6.4-8.2 GM/DL Albumin 4.4 3.2-4.5 GM/DL Lipase 56 8-78 U/L My Orders Orders - CRISTO GLASS MD Cbc With Automated Diff (07/06/22 15:35) Comprehensive Metabolic Panel (07/06/22 15:35) Lipase (07/06/22 15:35) Protime With Inr (07/06/22 15:35) Ondansetron Injection (Zofran Injectio (07/06/22 15:45) Morphine Injection (Morphine Injection (07/06/22 15:35) Ns Iv 1000 Ml (Sodium Chloride 0.9%) (07/06/22 15:35) Morphine Injection (Morphine Injection (07/06/22 16:15) Ketorolac Injection (Toradol Injection) (07/06/22 16:30) Antacid Suspension (Mylanta Suspension (07/06/22 16:30) Medications Given in ED Current Medications Medications Dose Ordered Sig/Kaylan Route Start Time Stop Time Status Last Admin Dose Admin Morphine Sulfate 4 mg ONCE ONCE IVP 07/06/22 16:15 07/06/22 16:16 DC 07/06/22 16:10 4 MG Ondansetron HCl 4 mg ONCE ONCE IVP 07/06/22 15:45 07/06/22 15:46 DC 07/06/22 15:47 4 MG Vital Signs/I&O 07/06/22 07/06/22 15:32 16:11 Pulse 88 80 Resp 13 16 B/P (MAP) 127/97 (107) 109/79 Pulse Ox 94 99 O2 Delivery Room Air Room Air Progress Progress Note : Progress Note 37-year-old male with past medical history of recurrent pancreatitis coming in due to epigastric pain that feels similar. ABCs were intact and vitals were stable on presentation. Physical exam with some epigastric tenderness but no signs of peritonitis. An IV was placed and basic labs were obtained including lipase which is normal right now. He has not had any nausea or vomiting here. Pain has improved with medications. I suspect this could be early pancreatitis versus gastritis related. I will send in prescriptions to his pharmacy to try to help with this try to manage it at home. I believe he is stable for discha rge with outpatient follow-up. He was sent home with strict return precautions. Departure Impression Primary Impression: Epigastric pain Disposition: HOME, SELF-CARE Condition: Stable Departure-Patient Inst. Decision time for Depature: 16:27 Referrals: [facility] (PCP/Family) Primary Care Physician Patient Instructions: Pancreatitis (DC) Add. Discharge Instructions: Your labs look good right now, and it does not currently have pancreatitis. It is possible that it is developing and in its early stages. 3 medicines were sent to your pharmacy. One of them is pantoprazole and I want you to start taking that every day. The other 1 is hydrocodone which she can take for pain and Zofran for nausea. Eat a very bland diet of mostly clear liquids, and do not eat anything with fat in it because this will make it worse. After pain is better you can slowly eat more normal things. Scripts Ondansetron (Ondansetron Odt) 4 Mg Tab.rapdis 4 MG PO Q6H PRN for NAUSEA/VOMITING-1ST LINE for 5 Days, #20 TAB Prov: CRISTO GLASS MD 07/06/22 Pantoprazole Sodium (Pantoprazole Sodium) 40 Mg Tablet.dr 40 MG PO DAILY for 30 Days, #30 TAB Prov: CRISTO GLASS MD 07/06/22 Acetaminophen (Tylenol Extra Strength) 500 Mg Tablet 1000 MG PO Q6H for 7 Days, #56 TAB Prov: CRISTO GLASS MD 07/06/22 Oxycodone HCl (Oxycodone HCl) 5 Mg Tablet 5 MG PO Q6H PRN for PAIN-MODERATE (5-7) for 3 Days, #12 TAB Prov: CRISTO GLASS MD 07/06/22 Work/School Note: Work Release Form Date Seen in the Emergency Department: Jul 06, 2022 Return to Work: Jul 08, 2022 Restrictions: No Restrictions CRISTO GLASS MD Jul 06, 2022 15:38
[2022-07-06] MEDS ORDERED: ONDANSETRON 4 MG/2 ML (SDV) Z0FRAN IVP ONE (15:45)
[2022-07-06 15:49] LABS: BASOPHILS % (AUTO) 0 % (0-10); MEAN CORPUSCULAR VOLUME 74 fL (80-99)
[2022-07-06 15:51] LABS: EOSINOPHILS # (AUTO) 0.3 10^3/uL (0.0-0.3); EOSINOPHILS % (AUTO) 3 % (0-10); HEMATOCRIT 52 % (40-54); HEMOGLOBIN 17.9 g/dL (13.3-17.7); LYMPHOCYTES # (AUTO) 0.8 10^3/uL (1.0-4.0); LYMPHOCYTES % (AUTO) 10 % (12-44); MEAN CORPUSCULAR HEMOGLOBIN 26 pg (25-34); MEAN CORPUSCULAR HGB CONC 34 g/dL (32-36); MEAN PLATELET VOLUME 11.2 fL (9.0-12.2); MONOCYTES # (AUTO) 0.4 10^3/uL (0.0-1.0); MONOCYTES % (AUTO) 5 % (0-12); NEUTROPHILS # (AUTO) 6.6 10^3/uL (1.8-7.8); NEUTROPHILS % (AUTO) 81 % (42-75); WHITE BLOOD COUNT 8.2 10^3/uL (4.3-11.0)
[2022-07-06 16:02] LABS: PLATELET COUNT 108 10^3/uL (130-400)
[2022-07-06 16:10] LABS: ALBUMIN 4.4 GM/DL (3.2-4.5)
[2022-07-06 16:11] LABS: POTASSIUM 4.1 MMOL/L (3.6-5.0)
[2022-07-06 16:12] LABS: CALCIUM 9.1 MG/DL (8.5-10.1)
[2022-07-06 16:13] LABS: TOTAL PROTEIN 9.4 GM/DL (6.4-8.2)
[2022-07-06 16:15] LABS: BILIRUBIN,TOTAL 0.9 MG/DL (0.1-1.0)
[2022-07-06] MEDS ORDERED: morphine INJ 4 MG/ML 1 ML (VIAL/SYRINGE) IVP ONE (16:15)
[2022-07-06 16:17] LABS: CREATININE SERUM 1.03 MG/DL (0.60-1.30)
[2022-07-06] MEDS ORDERED: KETOROLAC 30 MG/ML VIAL IVP ONE (16:30)
[2022-07-06] MEDS ORDERED: ANTACID SUSP 30 ML UDC (MYLANTA) PO ONE (16:30)
[2022-07-06] MEDS ORDERED: PANT40TA52 PO (16:31)
[2022-07-06] MEDS ORDERED: ONDA4TAB11 PO (16:31)
[2022-07-06] MEDS ORDERED: OXYC5TAB PO (16:31)
[2022-07-06] MEDS ORDERED: ACET-2267 PO (16:31)
[2022-07-06 17:09] VITALS: BP 104/82
== END 2022-07-06 17:00 | disposition home or self-care (01) ==
LOC: EDUNIT# 15:18 → ER 15:20
DX: R10.13 Epigastric pain (principal); R11.2 Nausea with vomiting, unspecified
CPT/HCPCS: 36415; 80053; 83690; 85025; 96361; 96374; 96375

== ENCOUNTER 2023-06-11 00:17 | Inpatient (IN) | payer BC ==
[2023-06-11] VITALS (14 sets, daily range): BP systolic 91–147; BP diastolic 50–79
[~2023-06-11] VITALS: Ht 157.5 cm; Wt 81.0 kg
[~2023-06-11 00:17] MED LIST changes: +ACET-2267 PO; +OXYC5TAB PO; +PANT40TA52 PO
[2023-06-11] MEDS ORDERED: LACTATED RINGERS 1,000 ML IV ONE (00:30)
[2023-06-11 00:43] LABS: MONOCYTES % (AUTO) 7 % (0-12)
[2023-06-11 00:45] LABS: BASOPHILS % (AUTO) 1 % (0-10); EOSINOPHILS # (AUTO) 0.1 10^3/uL (0.0-0.3); EOSINOPHILS % (AUTO) 1 % (0-10); HEMATOCRIT 49 % (40-54); HEMOGLOBIN 16.5 g/dL (13.3-17.7); LYMPHOCYTES # (AUTO) 1.9 10^3/uL (1.0-4.0); LYMPHOCYTES % (AUTO) 22 % (12-44); MEAN CORPUSCULAR HEMOGLOBIN 26 pg (25-34); MEAN CORPUSCULAR HGB CONC 33 g/dL (32-36); MEAN CORPUSCULAR VOLUME 77 fL (80-99); MEAN PLATELET VOLUME 11.4 fL (9.0-12.2); MONOCYTES # (AUTO) 0.6 10^3/uL (0.0-1.0); NEUTROPHILS # (AUTO) 5.9 10^3/uL (1.8-7.8); NEUTROPHILS % (AUTO) 69 % (42-75); PLATELET COUNT 110 10^3/uL (130-400); WHITE BLOOD COUNT 8.6 10^3/uL (4.3-11.0)
[2023-06-11] MEDS ORDERED: NS IV 1000 ML 1,000 ML IV SCH ×2 (00:45→02:45)
[2023-06-11] MEDS ORDERED: ONDANSETRON 4 MG/2 ML (SDV) Z0FRAN IVP ONE (00:45)
[2023-06-11 00:53] LABS: BILIRUBIN,URINE NEGATIVE (NEGATIVE); CLARITY,URINE CLEAR; COLOR,URINE YELLOW; GLUCOSE, URINE (UA) 3+ (NEGATIVE); KETONES,URINE NEGATIVE (NEGATIVE); LEUKOCYTE ESTERASE ,URINE NEGATIVE (NEGATIVE); NITRITE,URINE NEGATIVE (NEGATIVE); PROTEIN,URINE NEGATIVE (NEGATIVE)
[2023-06-11 00:55] LABS: CHLORIDE 104 MMOL/L (98-107); SODIUM 135 MMOL/L (135-145)
[2023-06-11 00:57] LABS: CALCIUM 8.9 MG/DL (8.5-10.1)
[2023-06-11 00:58] LABS: AMYLASE 88 U/L (25-125); GLUCOSE 232 MG/DL (70-105); TOTAL PROTEIN 7.6 GM/DL (6.4-8.2)
[2023-06-11 00:59] LABS: CARBON DIOXIDE 20 MMOL/L (21-32)
[2023-06-11 01:00] LABS: BILIRUBIN,TOTAL 0.4 MG/DL (0.1-1.0)
[2023-06-11 01:01] LABS: ALKALINE PHOSPHATASE 94 U/L (40-136)
[2023-06-11 01:02] LABS: CREATININE SERUM 0.95 MG/DL (0.60-1.30); GFR ESTIMATED 104
[2023-06-11 01:03] LABS: BUN/CREATININE RATIO 12
[2023-06-11 01:05] LABS: ALANINE AMINOTRANSFERASE 40 U/L (0-55); MAGNESIUM 2.1 MG/DL (1.6-2.4)
[2023-06-11] MEDS ORDERED: KETOROLAC 30 MG/ML VIAL IVP STA (01:05)
[2023-06-11 01:06] LABS: LIPASE 78 U/L (8-78)
[2023-06-11 01:07] LABS: BACTERIA,URINE NEGATIVE /HPF
[2023-06-11 01:12] LABS: AMPHETAMINE SCREEN, URINE NEGATIVE (NEGATIVE); BARBITURATE SCREEN URINE NEGATIVE (NEGATIVE); BENZODIAZEPINES SCREEN URINE NEGATIVE (NEGATIVE); CANNABINOID SCREEN, URINE NEGATIVE (NEGATIVE); COCAINE SCREEN URINE NEGATIVE (NEGATIVE); METHADONE STAT NEGATIVE (NEGATIVE); OPIATE SCREEN URINE NEGATIVE (NEGATIVE); OXYCODONE STAT POSITIVE (NEGATIVE); PROPOXYPHENE STAT NEGATIVE (NEGATIVE); TRICYCLIC ANTIDEPRESSANTS SCRE NEGATIVE (NEGATIVE)
--- NOTE | 2023-06-11 01:15 | ED Abdominal Pain ---
General Chief Complaint: Abdominal/GI Problems Stated Complaint: ABD PAIN Source of Information: Patient History of Present Illness Date Seen by Provider: Jun 11, 2023 Time Seen by Provider: 00:30 Initial Comments PT ARRIVES VIA POV FROM HOME PT STATES HE BEGAN FEELING BAD YESTERDAY WITH ABDOMINAL PAIN BELOW HIS BELLY BUTTON, NAUSEA AND DIARRHEA X 3 THE PAIN IS WORSE TODAY AND IS MORE IN RLQ ( HAD INITIALLY STATED HIS PAIN WAS IN LEFT UPPER QUADRANT ON ARRIVAL ) HE HAS HAD CONTINUED NAUSEA, NO VOMITING. HE TRIED TO EAT NOODLES AT 1800 TONIGHT. NO DIARRHEA OR BM TODAY NO KNOWN FEVER NO URINARY SYMPTOMS AND IS VOIDING A NORMAL AMOUNT HE HAS NOT TAKEN ANYTHING FOR PAIN PT HAS HAD PANCREATITIS IN THE PAST, BUT STATES THIS PAIN IS NOT IN THE SAME AREA WHEN HE HAD PANCREATITIS PT IS NON INSULIN DEPENDENT DIABETIC--TAKES METFORMIN AND INVOKANA. HE HAS HTN AND HYPERLIPIDEMIA. NO SMOKING, OCCASIONAL ETOH--NONE RECENTLY, NO DRUG USE. HE HAS HAD RIGHT INGUINAL HERNIA REPAIR PCP: [facility] Allergies and Home Medications Allergies Coded Allergies: No Known Drug Allergies (Unverified , 11/08/19) Patient Home Medication List Home Medication List Reviewed: Yes Acetaminophen (Tylenol Extra Strength) 500 Mg Tablet, 1,000 MG PO Q6H Prescribed by: CRISTO GLASS on 07/06/22 1631 Glipizide (Glipizide) 10 Mg Tablet, 10 MG PO BIDAC Prescribed by: HERSON KIRBY on 12/03/21 1047 Hydrocodone Bit/Acetaminophen (HYDROcodone/APAP 7.5/325 TAB) 1 Ea Tablet, 1 EA PO Q6HR PRN for PAIN-MODERATE (5-7) Prescribed by: HERSON KIRBY on 12/03/21 1047 Lisinopril (Lisinopril) 2.5 Mg Tablet, 2.5 MG PO DAILY Prescribed by: HERSON KIRBY on 12/03/21 104 Metformin HCl (Metformin HCl) 1,000 Mg Tablet, 1,000 MG PO BIDAC Prescribed by: HERSON KIRBY on 12/03/21 1047 Ondansetron (Ondansetron Odt) 4 Mg Tab.rapdis, 4 MG PO Q6H Prescribed by: HERSON KIRBY on 12/03/21 1047 Ondansetron (Ondansetron Odt) 4 Mg Tab.rapdis, 4 MG PO Q6H PRN for NAUSEA/VOMITING-1ST LINE Prescribed by: CRISTO GLASS on 07/06/22 1631 Oxycodone HCl (Oxycodone HCl) 5 Mg Tablet, 5 MG PO Q6H PRN for PAIN-MODERATE (5- 7) Prescribed by: CRISTO GLASS on 07/06/22 1631 Pantoprazole Sodium (Protonix) 40 Mg Tablet.dr, 40 MG PO DAILY Prescribed by: HERSON KIRBY on 12/03/21 1047 Pantoprazole Sodium (Pantoprazole Sodium) 40 Mg Tablet.dr, 40 MG PO DAILY Prescribed by: CRISTO GLASS on 07/06/22 1631 Polyethylene Glycol 3350 (Polyethylene Glycol 3350) 17 Gm Powd.pack, 17 GM PO B ID Prescribed by: HERSON KIRBY on 12/03/21 104 Pravastatin Sodium (Pravastatin Sodium) 80 Mg Tablet, 80 MG PO HS Prescribed by: HERSON KIRBY on 12/03/21 1047 Review of Systems Review of Systems Constitutional: no symptoms reported Respiratory: No Symptoms Reported Cardiovascular: No Symptoms Reported Gastrointestinal: See HPI, Abdominal Pain, Nausea, Poor Appetite, Vomiting Genitourinary: No Symptoms Reported Musculoskeletal: no symptoms reported Skin: no symptoms reported Psychiatric/Neurological: No Symptoms Reported Endocrine: No Symptoms Reported Hematologic/Lymphatic: No Symptoms Reported Past Byqfpwv-Loufjy-Gjcnnv Hx Patient Social History Tobacco Use?: No Substance use?: No Alcohol Use?: Yes Alcohol Frequency: Once in a while Immunizations Up To Date First/Initial COVID19 Vaccinat: AUG Second COVID19 Vaccination Louis: SEP Third COVID19 Vaccination Date: AUG 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 Seasonal Allergies Seasonal Allergies: No Past Medical History Surgery/Hospitalization HX: RIGHT INGUINAL HERNIA REPAIR Surgeries: Yes (RIGHT INGUINAL HERNIA REPAIR) Abdominal Respiratory: No Cardiac: Yes High Cholesterol, Hypertension Neurological: No Genitourinary: No Gastrointestinal: Yes Pancreatitis Musculoskeletal: No Endocrine: Yes Diabetes, Non-Insulin dep HEENT: No Cancer: No Psychosocial: No Integumentary: No Family Medical History Chronic lymphoid leukemia G8 SISTER, Onset:Adolescence No Pertinent Family Hx Physical Exam Vital Signs Vital Signs - First Documented 06/11/23 00:30 Temp 37.0 Pulse 87 Resp 16 B/P (MAP) 120/89 (99) Pulse Ox 98 Capillary Refill : Height/Weight/BMI Height: '" Weight: lbs. oz. kg; 33.00 BMI Method: General Appearance: WD/WN, no apparent distress HEENT: PERRL/EOMI; No scleral icterus (R), No scleral icterus (L) Neck: normal inspection Respiratory: normal breath sounds, no respiratory distress, no accessory muscle use Cardiovascular: regular rate, rhythm, no murmur Gastrointestinal: soft, abnormal bowel sounds (DECREASED); No distended, No guarding; tenderness (HAS GENERALIZED ABDOMINAL TENDERNESS BUT IS VERY TENDER IN RLQ , WITH EQUIVOCAL REBOUND); No hernia, No mass Extremities: normal inspection, normal capillary refill Back: no CVA tenderness Neurologic/Psychiatric: 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 tested, no motor/sensory deficits, alert, normal mood/affect, oriented x 3 Skin: normal color (PT IS DARK SKINNED), warm/dry; No rash Focused Exam Lactate Level 06/11/23 00:32: Lactic Acid Level 1.24 Lactic Acid Level Laboratory Tests Test 06/11/23 00:32 Lactic Acid Level 1.24 MMOL/L (0.50-2.00) Progress/Results/Core Measures Results/Orders Lab Results Laboratory Tests Test 06/11/23 00:32 06/11/23 00:45 Range/Units White Blood Count 8.6 4.3-11.0 10^3/uL Red Blood Count 6.45 H 4.30-5.52 10^6/uL Hemoglobin 16.5 13.3-17.7 g/dL Hematocrit 49 40-54 % Mean Corpuscular Volume 77 L 80-99 fL Mean Corpuscular Hemoglobin 26 25-34 pg Mean Corpuscular Hemoglobin Concent 33 32-36 g/dL Red Cell Distribution Width 14.6 H 10.0-14.5 % Platelet Count 110 L 130-400 10^3/uL Mean Platelet Volume 11.4 9.0-12.2 fL Immature Granulocyte % (Auto) 1 % Neutrophils (%) (Auto) 69 42-75 % Lymphocytes (%) (Auto) 22 12-44 % Monocytes (%) (Auto) 7 0-12 % Eosinophils (%) (Auto) 1 0-10 % Basophils (%) (Auto) 1 0-10 % Neutrophils # (Auto) 5.9 1.8-7.8 10^3/uL Lymphocytes # (Auto) 1.9 1.0-4.0 10^3/uL Monocytes # (Auto) 0.6 0.0-1.0 10^3/uL Eosinophils # (Auto) 0.1 0.0-0.3 10^3/uL Basophils # (Auto) 0.0 0.0-0.1 10^3/uL Immature Granulocyte # (Auto) 0.1 0.0-0.1 10^3/uL Percent Immature Platelet Fraction 6.7 0.0-7.6 % Erythrocyte Sedimentation Rate 1 0-15 MM/HR Sodium Level 135 135-145 MMOL/L Potassium Level 3.0 L 3.6-5.0 MMOL/L Chloride Level 104 98-107 MMOL/L Carbon Dioxide Level 20 L 21-32 MMOL/L Anion Gap 11 5-14 MMOL/L Blood Urea Nitrogen 11 7-18 MG/DL Creatinine 0.95 0.60-1.30 MG/DL Estimat Glomerular Filtration Rate 104 BUN/Creatinine Ratio 12 Glucose Level 232 H 70-105 MG/DL Lactic Acid Level 1.24 0.50-2.00 MMOL/L Calcium Level 8.9 8.5-10.1 MG/DL Corrected Calcium 8.9 8.5-10.1 MG/DL Magnesium Level 2.1 1.6-2.4 MG/DL Total Bilirubin 0.4 0.1-1.0 MG/DL Aspartate Amino Transf (AST/SGOT) 26 5-34 U/L Alanine Aminotransferase (ALT/SGPT) 40 0-55 U/L Alkaline Phosphatase 94 40-136 U/L C-Reactive Protein High Sensitivity 0.51 H 0.00-0.50 MG/DL Total Protein 7.6 6.4-8.2 GM/DL Albumin 4.0 3.2-4.5 GM/DL Amylase Level 88 25-125 U/L Lipase 78 8-78 U/L Serum Alcohol < 10 <10 MG/DL Urine Color YELLOW Urine Clarity CLEAR Urine pH 6.0 5-9 Urine Specific [place] <=1.005 1.016-1.022 Urine Protein NEGATIVE NEGATIVE Urine Glucose (UA) 3+ H NEGATIVE Urine Ketones NEGATIVE NEGATIVE Urine Nitrite NEGATIVE NEGATIVE Urine Bilirubin NEGATIVE NEGATIVE Urine Urobilinogen 0.2 < = 1.0 MG/DL Urine Leukocyte Esterase NEGATIVE NEGATIVE Urine RBC (Auto) NEGATIVE NEGATIVE Urine RBC NONE /HPF Urine WBC NONE /HPF Urine Crystals NONE /LPF Urine Bacteria NEGATIVE /HPF Urine Casts NONE /LPF Urine Mucus NEGATIVE /LPF Urine Culture Indicated NO Urine Opiates Screen NEGATIVE NEGATIVE Urine Oxycodone Screen POSITIVE H NEGATIVE Urine Methadone Screen NEGATIVE NEGATIVE Urine Propoxyphene Screen NEGATIVE NEGATIVE Urine Barbiturates Screen NEGATIVE NEGATIVE Ur Tricyclic Antidepressants Screen NEGATIVE NEGATIVE Urine Phencyclidine Screen NEGATIVE NEGATIVE Urine Amphetamines Screen NEGATIVE NEGATIVE Urine Methamphetamines Screen NEGATIVE NEGATIVE Urine Benzodiazepines Screen NEGATIVE NEGATIVE Urine Cocaine Screen NEGATIVE NEGATIVE Urine Cannabinoids Screen NEGATIVE NEGATIVE My Orders Orders - JANINE PADILLA DO Ed Iv/Invasive Line Start (06/11/23 00:30) Monitor-Rhythm Ecg Trace Only (06/11/23 00:30) Alcohol (06/11/23 00:30) Amylase (06/11/23 00:30) Cbc With Automated Diff (06/11/23 00:30) Comprehensive Metabolic Panel (06/11/23 00:30) Hs C Reactive Protein (06/11/23 00:30) Drug Screen Stat (Urine) (06/11/23 00:30) Lactic Acid Analyzer (06/11/23 00:30) Lipase (06/11/23 00:30) Magnesium (06/11/23 00:30) Ua Culture If Indicated (06/11/23 00:30) Erythrocyte Sedimentation Rate (06/11/23 00:30) Ed Iv/Invasive Line Start (06/11/23 00:30) Lactated Ringers (Lr 1000 Ml Iv Solution (06/11/23 00:30) Ed Iv/Invasive Line Start (06/11/23 00:39) Ns Iv 1000 Ml (Sodium Chloride 0.9%) (06/11/23 00:45) Ondansetron Injection (Zofran Injectio (06/11/23 00:45) Ct Abd/Pelv W (Appendicitis) (06/11/23 01:05) Ketorolac Injection (Toradol Injection) (06/11/23 01:05) Ed Iv/Invasive Line Start (06/11/23 02:35) Medications Given in ED Current Medications Medications Dose Ordered Sig/Kaylan Route Start Time Stop Time Status Last Admin Dose Admin Ondansetron HCl 4 mg ONCE ONCE IVP 06/11/23 00:45 06/11/23 00:46 DC 06/11/23 00:52 4 MG Vital Signs/I&O 06/11/23 00:30 Temp 37.0 Pulse 87 Resp 16 B/P (MAP) 120/89 (99) Pulse Ox 98 Progress Progress Note : Progress Note VITALS ON ARRIVAL: TEMP 37.0=98.6, HR 86, BP 120/89, O2 SAT 96% ON ROOM AIR GIVEN: -IV FLUIDS -ZOFRAN -TORADOL PERTINENT LABS: -CBC WITH WBC 8.6 -CMP WITH NA 135, K 3.0, BUN 11, CR 0.8, GLU 232. AMYLASE/LIPASE NORMAL. LFT'S NORMAL -LACTIC ACID 1.24 -CRP 0.51 -UA 3+ GLUCOSE -UDS + OXYCODONE, ETOH NEGATIVE. NO DETERIORATION IN PT'S CONDITION DURING ER STAY DISCUSSED TEST RESULTS, NEED FOR ADMIT AND PT AGREES TO PLAN REVIEWED PRIOR RECORDS, INCLUDING ER VISITS, ADMITS/H&P'S/CONSULTS/DISCHARGE SUMMARIES, TESTS Diagnostic Imaging Comments CT ABDOMEN/PELVIS--+ APPENDICITIS, PER [facility] RADIOLOGIST AT 0233 AND VIA FAX AT 0232 -APPENDIX IS GAS FILLED AND MEASURES UP TO 12 MM, WITH MULTIPLE APPENDICOLITHS. Reviewed: Reviewed by Me, Discussed w/Radiologist Departure Communication (Admissions) 0235--SPOKE WITH DR. SHORE, SURGEON, ACCEPTS PT FOR ADMIT. Impression Primary Impression: Appendicitis Additional Impressions: Non-insulin dependent diabetes mellitus HX HTN Disposition: ADMITTED INPATIENT Condition: Stable Admissions Decision to Admit Reason: Admit from ER (General) Decision to Admit/Date: Jun 11, 2023 Time/Decision to Admit Time: 02:35 Departure-Patient Inst. Referrals: [facility] (PCP/Family) Primary Care Physician JANINE PADILLA DO Jun 11, 2023 01:15
[2023-06-11 01:22] LABS: ERYTHROCYTE SEDIMENTATION RATE 1 MM/HR (0-15)
[2023-06-11] MEDS ORDERED: NS IV 1000 ML 1,000 ML ONE (03:21)
[2023-06-11] MEDS ORDERED: ONDANSETRON 4 MG/2 ML (SDV) Z0FRAN IVP PRN ×2 (03:30→12:15)
[2023-06-11] MEDS: NS IV 1000 ML 1,000 ML IV SCH ×3 (03:36→14:17)
[2023-06-11] MEDS: fentaNYL INJ 100 MCG/2 ML AMP IVP PRN ×5 (03:37→16:36)
--- NOTE | 2023-06-11 07:03 | Diagnostic Imaging Report ---
PROCEDURE: CT abdomen and pelvis with contrast, rule out appendicitis. TECHNIQUE: Multiple contiguous axial images were obtained through the abdomen and pelvis after the administration of intravenous contrast. All CT scans use one or more of the following dose optimizing techniques: automated exposure control, MA and/or KvP adjustment based on patient size and exam type or iterative reconstruction. INDICATION: Right lower quadrant pain. COMPARISON: 11/29/2021 FINDINGS: The visualized lung bases are clear. The liver is mildly enlarged measuring over 20 cm in length. Diffusely decreased density of the liver is identified. Cyst within the lateral right hepatic lobe is again identified. Focal fatty sparing near the gallbladder is again seen. The spleen is unremarkable. The adrenal glands are unremarkable. The pancreas is unremarkable. The gallbladder is decompressed. The kidneys are unremarkable. No aneurysmal dilatation of the abdominal aorta. Small fat-containing umbilical hernia. The urinary bladder is unremarkable. The prostate gland is unremarkable. Appendicolith is identified within the appendix. Additionally, the appendix is significantly dilated measuring up to 1.5 cm. Very minimal periappendiceal inflammatory stranding is present. No focal fluid collection or free air adjacent to the appendix. No small bowel obstruction. No pneumatosis. No significant adenopathy, free air, or free fluid within the abdomen or pelvis. Minimal partial ankylosis of the left sacroiliac joint. Scattered osseous degenerative changes without acute osseous abnormality IMPRESSION: Multiple appendicoliths are present with significant enlargement of the appendix, suggesting mild acute appendicitis. No evidence of perforation or abscess formation. Recommend clinical correlation. Mild hepatomegaly with associated fatty infiltration of the liver. Additional findings as above. Agree with preliminary interpretation. Dictated by: Dictated on workstation # [id number]
[2023-06-11] MEDS ORDERED: LIDOCAINE/EPI 1%-1:100,000 (XYLOCAINE) 20ML ONE (09:57)
--- NOTE | 2023-06-11 10:12 | Consultation - Surgery ---
History of Present Illness History of Present Illness Patient Consulted On(mayito/time) 06/11/23 10:07 Time Seen by Provider: 09:54 History of Present Illness Surgery asked to consult regarding Appendicitis HPI per ED: PT ARRIVES VIA POV FROM HOME, PT STATES HE BEGAN FEELING BAD YESTER DAY WITH ABDOMINAL PAIN BELOW HIS BELLY BUTTON, NAUSEA AND DIARRHEA X 3, THE PAIN IS WORSE TODAY AND IS MORE IN RLQ ( HAD INITIALLY STATED HIS PAIN WAS IN LEFT UPPER QUADRANT ON ARRIVAL ) HE HAS HAD CONTINUED NAUSEA, NO VOMITING. HE TRIED TO EAT NOODLES AT 1800 TONIGHT. NO DIARRHEA OR BM TODAY NO KNOWN FEVER, NO URINARY SYMPTOMS AND IS VOIDING A NORMAL AMOUNT, HE HAS NOT TAKEN ANYTHING FOR PAIN, PT HAS HAD PANCREATITIS IN THE PAST, BUT STATES THIS PAIN IS NOT IN THE SAME AREA WHEN HE HAD PANCREATITIS, PT IS NON INSULIN DEPENDENT DIABETIC--TAKES METFORMIN AND INVOKANA. HE HAS HTN AND HYPERLIPIDEMIA. NO SMOKING, OCCASIONAL ETOH--NONE RECENTLY, NO DRUG USE. HE HAS HAD RIGHT INGUINAL HERNIA REPAIR When I spoke to pt he was still having pain, barely controlled with meds. Raiting is as 8 out of 10, constant with sharp stabbing. Has never had pain like this before. Pain is all over, but now mostly in RLQ. Allergies and Home Medications Allergies Coded Allergies: No Known Drug Allergies (Unverified , 11/08/19) Patient Home Medication List Home Medication List Reviewed: Yes Acetaminophen (Tylenol Extra Strength) 500 Mg Tablet, 1,000 MG PO Q6H Prescribed by: CRISTO GLASS on 07/06/22 1631 Glipizide (Glipizide) 10 Mg Tablet, 10 MG PO BIDAC Prescribed by: HERSON KIRBY on 12/03/21 1047 Hydrocodone Bit/Acetaminophen (HYDROcodone/APAP 7.5/325 TAB) 1 Ea Tablet, 1 EA PO Q6HR PRN for PAIN-MODERATE (5-7) Prescribed by: HERSON KIRBY on 12/03/21 1047 Lisinopril (Lisinopril) 2.5 Mg Tablet, 2.5 MG PO DAILY Prescribed by: HERSON KIRBY on 12/03/21 1047 Metformin HCl (Metformin HCl) 1,000 Mg Tablet, 1,000 MG PO BIDAC Prescribed by: HERSON KIRBY on 12/03/21 1047 Ondansetron (Ondansetron Odt) 4 Mg Tab.rapdis, 4 MG PO Q6H Prescribed by: HERSON KIRBY on 12/03/21 1047 Ondansetron (Ondansetron Odt) 4 Mg Tab.rapdis, 4 MG PO Q6H PRN for NAUSEA /VOMITING-1ST LINE Prescribed by: CRISTO GLASS on 07/06/22 1631 Oxycodone HCl (Oxycodone HCl) 5 Mg Tablet, 5 MG PO Q6H PRN for PAIN-MODERATE (5- 7) Prescribed by: CRISTO GLASS on 07/06/22 1631 Pantoprazole Sodium (Protonix) 40 Mg Tablet.dr, 40 MG PO DAILY Prescribed by: HERSON KIBRY on 12/03/21 104 Pantoprazole Sodium (Pantoprazole Sodium) 40 Mg Tablet.dr, 40 MG PO DAILY Prescribed by: CRISTO GLASS on 07/06/22 1631 Polyethylene Glycol 3350 (Polyethylene Glycol 3350) 17 Gm Powd.pack, 17 GM PO BID Prescribed by: HERSON KIRBY on 12/03/21 104 Pravastatin Sodium (Pravastatin Sodium) 80 Mg Tablet, 80 MG PO HS Prescribed by: HERSON KIRBY on 12/03/21 1047 Past Ycaksin-Oentxd-Usqwbp Hx Patient Social History Smoking Status: Never a Smoker Recent Hopitalizations: No Alcohol Use?: No Immunizations Up To Date Date of Influenza Vaccine: Aug 27, 2020 Seasonal Allergies Seasonal Allergies: No Surgeries History of Surgeries: Yes (RIGHT INGUINAL HERNIA REPAIR) Surgeries: Abdominal Respiratory History of Respiratory Disorde: No Cardiovascular History of Cardiac Disorders: Yes Cardiac Disorders: High Cholesterol, Hypertension Neurological History of Neurological Disord: No Genitourinary History of Genitourinary Disor: No Gastrointestinal History of Gastrointestinal Di: Yes Gastrointestinal Disorders: Pancreatitis Musculoskeletal History of Musculoskeletal Dis: No Endocrine History of Endocrine Disorders: Yes Endocrine Disorders: Diabetes, Non-Insulin dep HEENT History of HEENT Disorders: No Cancer History of Cancer: No Psychosocial History of Psychiatric Problem: No Integumentary History of Skin or Integumenta: No Family Medical History Significant Family History: Heart Disease, Diabetes, Hypertension Family Medial History: Chronic lymphoid leukemia G8 SISTER, Onset:Adolescence Review of Systems-General Constitutional: fever, malaise, weakness EENTM: No double vision, No mouth swelling, No epistaxis Respiratory: No cough, No dyspnea on exertion Cardiovascular: No chest pain, No palpitations Gastrointestinal: abdominal pain, diarrhea, nausea, vomiting Genitourinary: No dysuria, No frequency, No hematuria Musculoskeletal: No joint pain, No joint swelling, No muscle stiffness Skin: No change in color, No change in hair/nails Psychiatric/Neurological: Denies Anxiety, Denies Depressed, Denies Tremors Physical Exam-General Problems Physical Exam Vital Signs Vital Signs - First Documented 06/11/23 06/11/23 00:30 02:56 Temp 37.0 Pulse 87 Resp 16 B/P (MAP) 120/89 (99) Pulse Ox 98 O2 Delivery Room Air Capillary Refill : Less Than 3 Seconds General Appearance: WD/WN, moderate distress (secondary to pain) Eyes: Bilateral Eye PERRL, Bilateral Eye EOMI HEENT: pharynx normal; No scleral icterus (R), No scleral icterus (L) Neck: non-tender, supple Respiratory: chest non-tender, lungs clear, normal breath sounds, no respiratory distress, no accessory muscle use Cardiovascular: regular rate, rhythm, no murmur Gastrointestinal: soft, hernia (large umbilical - incarcerated), hepatomegaly Rectal: deferred Back: no CVA tenderness, no vertebral tenderness Extremities: non-tender, normal inspection, no pedal edema, no calf tenderness Neurologic/Psychiatric: alert, oriented x 3 Skin: normal color, warm/dry Lymphatic: no adenopathy (neck, axilla or groin) Data Review Labs Laboratory Tests 06/11/23 00:32: White Blood Count 8.6, Red Blood Count 6.45H, Hemoglobin 16.5, Hematocrit 49, Mean Corpuscular Volume 77L, Mean Corpuscular Hemoglobin 26, Mean Corpuscular Hemoglobin Concent 33, Red Cell Distribution Width 14.6H, Platelet Count 110L, Mean Platelet Volume 11.4, Immature Granulocyte % (Auto) 1, Neutrophils (%) (Auto) 69, Lymphocytes (%) (Auto) 22, Monocytes (%) (Auto) 7, Eosinophils (%) (Auto) 1, Basophils (%) (Auto) 1, Neutrophils # (Auto) 5.9, Lymphocytes # (Auto) 1.9, Monocytes # (Auto) 0.6, Eosinophils # (Auto) 0.1, Basophils # (Auto) 0.0, Immature Granulocyte # (Auto) 0.1, Percent Immature Platelet Fraction 6.7, Erythrocyte Sedimentation Rate 1, Sodium Level 135, Potassium Level 3.0L, Chloride Level 104, Carbon Dioxide Level 20L, Anion Gap 11, Blood Urea Nitrogen 11, Creatinine 0.95, Estimat Glomerular Filtration Rate 104, BUN/Creatinine Ratio 12, Glucose Level 232H, Lactic Acid Level 1.24, Calcium Level 8.9, Corrected Calcium 8.9, Magnesium Level 2.1, Total Bilirubin 0.4, Aspartate Amino Transf (AST/SGOT) 26, Alanine Aminotransferase (ALT/SGPT) 40, Alkaline Phosphatase 94, C-Reactive Protein High Sensitivity 0.51H, Total Protein 7.6, Albumin 4.0, Amylase Level 88, Lipase 78, Serum Alcohol < 10 06/11/23 00:45: Urine Color YELLOW, Urine Clarity CLEAR, Urine pH 6.0, Urine Specific [place] <=1.005, Urine Protein NEGATIVE, Urine Glucose (UA) 3+H, Urine Ketones NEGATIVE, Urine Nitrite NEGATIVE, Urine Bilirubin NEGATIVE, Urine Urobilinogen 0.2, Urine Leukocyte Esterase NEGATIVE, Urine RBC (Auto) NEGATIVE, Urine RBC NONE, Urine WBC NONE, Urine Crystals NONE, Urine Bacteria NEGATIVE, Urine Casts NONE, Urine Mucus NEGATIVE, Urine Culture Indicated NO, Urine Opiates Screen NEGATIVE, Urine Oxycodone Screen POSITIVEH, Urine Methadone Screen NEGATIVE, Urine Propoxyphene Screen NEGATIVE, Urine Barbiturates Screen NEGATIVE, Ur Tricyclic Antidepressants Screen NEGATIVE, Urine Phencyclidine Screen NEGATIVE, Urine Amphetamines Screen NEGATIVE, Urine Methamphetamines Screen NEGATIVE, Urine Benzodiazepines Screen NEGATIVE, Urine Cocaine Screen NEGATIVE, Urine Cannabinoids Screen NEGATIVE Radiology Date of Exam:06/11/23 CT ABD/PELV W (APPENDICITIS) PROCEDURE: CT abdomen and pelvis with contrast, rule out appendicitis. TECHNIQUE: Multiple contiguous axial images were obtained through the abdomen and pelvis after the administration of intravenous contrast. All CT scans use one or more of the following dose optimizing techniques: automated exposure control, MA and/or KvP adjustment based on patient size and exam type or iterative reconstruction. INDICATION: Right lower quadrant pain. COMPARISON: 11/29/2021 FINDINGS: The visualized lung bases are clear. The liver is mildly enlarged measuring over 20 cm in length. Diffusely decreased density of the liver is identified. Cyst within the lateral right hepatic lobe is again identified. Focal fatty sparing near the gallbladder is again seen. The spleen is unremarkable. The adrenal glands are unremarkable. The pancreas is unremarkable. The gallbladder is decompressed. The kidneys are unremarkable. No aneurysmal dilatation of the abdominal aorta. Small fat-containing umbilical hernia. The urinary bladder is unremarkable. The prostate gland is unremarkable. Appendicolith is identified within the appendix. Additionally, the appendix is significantly dilated measuring up to 1.5 cm. Very minimal periappendiceal inflammatory stranding is present. No focal fluid collection or free air adjacent to the appendix. No small bowel obstruction. No pneumatosis. No significant adenopathy, free air, or free fluid within the abdomen or pelvis. Minimal partial ankylosis of the left sacroiliac joint. Scattered osseous degenerative changes without acute osseous abnormality IMPRESSION: Multiple appendicoliths are present with significant enlargement of the appendix, suggesting mild acute appendicitis. No evidence of perforation or abscess formation. Recommend clinical correlation. Mild hepatomegaly with associated fatty infiltration of the liver. Additional findings as above. Agree with preliminary interpretation. Dictated by: Dictated on workstation # [id number] Dict: 06/11/23 0642 Trans: 06/11/23 0951 [facility] [id number] Interpreted by: GOLDIE CARMEN MD Electronically signed by: GOLDIE CARMEN MD 06/11/23 0951 Assessment/Plan Assessment/Plan Assessment/Plan Acute appendicitis I reviewed the CT films myself and noted the multiple stones in the appendix; which is thickened as well. We discussed surgery: Laparoscopic Appendectomy, possible open and all other indicated procedures. Went over risks and complications not limited to pain, bleeding, infection, scar, damage to bowel and need for further procedure. All questions answered to his and his 's satisfaction. Will get consent, ordered IV ABX for OR and continue IV fluids, pain meds and anti-emetics. JAZLYN SHORE DO Jun 11, 2023 10:12
[2023-06-11] MEDS ORDERED: LIDOCAINE/EPI 1%-1:100,000 (XYLOCAINE) 20ML INJ ONE (10:18)
[2023-06-11] MEDS ORDERED: ceFAZolin INJECTION 2,000 MG in NS (IVPB) 50 ML 50 ML IV NR (10:30)
[2023-06-11] MEDS ORDERED: LACTATED RINGERS 1,000 ML IV PRN (10:45)
[2023-06-11] MEDS ORDERED: ONDANSETRON 4 MG/2 ML (SDV) Z0FRAN ONE (10:46)
[2023-06-11] MEDS ORDERED: LIDOCAINE PF 2% 5 ML (XYLOCAINE) VIAL ONE (10:46)
[2023-06-11] MEDS ORDERED: proPOfol 200 MG/20 ML (DIPRIVAN) VIAL IV ONE (10:46)
[2023-06-11] MEDS ORDERED: MIDAZOLAM 2 MG/2 ML (VERSED) VIAL ONE (10:46)
[2023-06-11] MEDS ORDERED: ROCURONIUM 50 MG/5 ML (ZEMURON) VIAL IV ONE (10:46)
[2023-06-11] MEDS ORDERED: fentaNYL INJ 100 MCG/2 ML AMP ONE (10:46)
[2023-06-11] MEDS ORDERED: NEOSTIGMINE (BLOXIVERZ ) 1 MG/1ML 10 ML VIAL ONE (11:35)
[2023-06-11] MEDS ORDERED: GLYCOPYRROLATE 0.2 MG/ML (ROBINUL) 2 ML VIAL ONE (11:35)
--- NOTE | 2023-06-11 11:57 | Progress Note-Post Operative ---
Post-Operative Progess Note Surgeon (s)/First Mate (s) Surgeon JAZLYN SHORE DO First Mate: SAMMY Judge Pre-Operative Diagnosis Acute Appy Post-Operative Diagnosis same Procedure & Operative Findings Date of Procedure 06/11/23 Procedure Performed/Findings PROCEDURE: Laparoscopic appendectomy. COMPLICATIONS: None. INDICATIONS: The patient is a 38 year old male who has been having right lower quadrant abdominal pain. Patient's exam consistent with appendicitis. I discussed risk and benefits of laparoscopic appendectomy and all indicated procedures with the possibility being a normal appendix. The patient understands the risks and benefits and wishes to proceed. Consent was signed on the chart. DESCRIPTION OF PROCEDURE: The patient was taken to the operating suite, prepped and draped in a sterile fashion. Timeout was performed. Local anesthetic was infiltrated just above the umbilicus and 11- blade scalpel was used to make a skin incision. Cautery was used to dissect down to the fascia and scored. Kochers were used to grasp and elevate it and the abdomen was then entered. A 0 Vicryl was placed in a figure- of-eight fashion for closure at the end of the case. The balloon trocar was inserted into the abdomen and pneumoperitoneum was achieved. Under direct visualization of the laparoscope, a 5 mm trocar was placed in the suprapubic region and a 5 mm trocar was placed in the left lower quadrant. Appendix was located, it was inflamed thickened and had fibrinous material around it. Started coming across the mesoappendix and the appendiceal artery with the Ligasure. Taking it down to the base of the appendix. Once at the base an Endo-DU 2.5 stapler was then fired and it was then placed in an Endobag and removed through the 12 mm trocar site. The abdomen was then irrigated and suctioned. Pt noted to have an incarcerated Umbilical hernia and the start of a left inguinal hernia; pictures taken. Copiously irrigated the abdomen and then suctioned it out. The abdomen was then desufflated and the trocars were removed under visualization. The 0 Vicryl placed at the beginning of the case was then tied closing the 12 mm fascial defect. The skin was then closed using 4-0 Monocryl in a subcuticular fashion. The abdomen was then washed and dried and Skin Affix was placed over the incisions. The patient tolerated the procedure well without any complications and was taken to the recovery room in stable condition. Anesthesia Type GET Estimated Blood Loss Estimated blood loss (mL): scant Specimens/Packing Specimens Removed appendix JAZLYN SHORE DO Jun 11, 2023 11:57
[2023-06-11] MEDS ORDERED: SEVOFLURANE (ULTANE) 15 ML INHAL SOLN ONE (11:58)
--- NOTE | 2023-06-11 11:58 | Discharge Inst-Surgical ---
Discharge Inst-Surgical Depart Medication/Instructions New, Converted or Re-Newed RX: Other (use home meds) Patient Instructions Follow up Appt: Make appointment for 1 week. [phone] Instructions: No lifting greater than 20 pounds. No strenuous activity. May shower in 24 hours, no tub bath or soaking. Use incentive spirometer at home as directed. No Smoking Skin/Wound Care: May remove bandages in am. You need to leave the Dermabond on incision it will fall off on it's own. Symptoms to Report: Appetite Changes, Extremity Discoloration, Numbness/Tingling, Swelling Increased, Bleeding Excessive, Eyesight Changes, Pain Increased, Urine Color Change, Constipation(Persistent), Fever over 101 degree F, Pain/Pressure in chest, Urinating Difficulty, Cough Up/Vomit Blood, Heart Beat Irreg/Pounding, Pain/Pressure in jaw, Cramps in feet or legs, Lightheadedness, Pain/Pressure in shoulder, Diarrhea(Persistent), Memory Changes Suddenly, Questions/Concerns, Weight gain consecutive days, Dizziness/Fainting, Nausea/Vomiting, Shortness of Breath, Weight gain over 2 pounds If questions or concerns contact your physician Or seek help at emergency department. Activity Activity as Tolerated: Yes Activity Instructions: Avoid Stress to Incision Driving Instructions: No Driving/Refer to Dr. Moreno Discharge Diet: No Restrictions Diet After 24 Hours: Clear Liquid if Nauseous If Any Problems/Questions/Issu: Contact Your Physician, Go to Emergency Room Skin/Wound Care Infection Signs and Symptoms: Increased Redness, Foul Odor of Wound, Increased Drainage, Skin Itchy or Has a Rash, Increased Swelling, Temperature Above 101 F Wound Care Comment: heating pad to shoulder or neck tonight for pain Bathing Instructions: Shower Stitches/Kel[place]/Dermabond Dis: Dermabond JAZLYN SHORE DO Jun 11, 2023 11:58
[2023-06-11] MEDS ORDERED: MEPERIDINE (DEMEROL) INJ 50 MG/ML IVP ONE (12:15)
[2023-06-11] MEDS ORDERED: morphine INJ 10 MG/ML 1ML (SYR OR VIAL) IVP ONE (12:15)
[2023-06-11] MEDS ORDERED: PROMETHAZINE INJ 25 MG/ML (PHENERGAN) AMP IVP ONE (12:15)
[2023-06-11] MEDS ORDERED: HYDROmorphone 2 MG/ML VIAL (DILAUDID) IV ONE (12:15)
--- NOTE | 2023-06-11 12:26 | Anesthesia-General Post-Op ---
General Patient Condition Mental Status/LOC: Same as Preop Cardiovascular: Satisfactory Nausea/Vomiting: Absent Respiratory: Satisfactory Pain: Controlled Complications: Absent Post Op Complications Complications None Follow Up Care/Instructions Patient Instructions None needed. Anesthesia/Patient Condition Patient Condition Patient is doing well, no complaints, stable vital signs, no apparent adverse anesthesia problems. No complications reported per nursing. MELODY JAUREGUI CRNA Jun 11, 2023 12:26
[2023-06-11] MEDS ORDERED: HYDR-34 PO (14:05)
== END 2023-06-11 17:05 | disposition home or self-care (01) | DRG 343 ==
LOC: EDUNIT# 00:17 → ER 00:20 → 4TH 02:55
PROVIDERS: ADMIT Surgery; ATTEND Surgery
PROC: 0DTJ4ZZ Resection of Appendix, Percutaneous Endoscopic Approach (ICD-10-PCS; principal; 2023-06-11 10:50)
DX: K35.80 Unspecified acute appendicitis (principal); E11.9 Type 2 diabetes mellitus without complications; I10 Essential (primary) hypertension; E78.00 Pure hypercholesterolemia, unspecified; Z79.899 Other long term (current) drug therapy; Z79.84 Long term (current) use of oral hypoglycemic drugs; Z87.19 Personal history of other diseases of the digestive system
CPT/HCPCS: 36415; 74177; 80053; 80306; 80320; 81000; 82150; 82947; 83605; 83690; 83735; 85025; 85652; 86141; 93041

== ENCOUNTER 2023-08-30 18:29 | Inpatient (IN) | payer BC ==
[~2023-08-30] VITALS: Ht 160 cm; Wt 80.2 kg
--- NOTE | 2023-08-30 18:45 | ED Chest Pain ---
General Chief Complaint: Chest Pain Stated Complaint: CHEST PAIN Nursing Triage Note: PT AMB TO RM 3 WITH C\\O CP SINCE NOON TODAY. PT STATES IT STARTS IN HIS CHEST AND GOES INTO HIS STOMACH Source: patient Exam Limitations: no limitations (DEV SEAY MD) Source: patient Exam Limitations: no limitations (QUYEN GARCIA) History of Present Illness Date Seen by Provider: Aug 30, 2023 Time Seen by Provider: 18:40 (DEV SEAY MD) Initial Comments David presents today with chest pain that radiates to his back and abdominal area since noon today. He says that the pain started after eating kerry noodles for lunch. He describes the pain as a stabbing and burning pain and relates it to the pain that he had with his pancreas a couple years prior but states that pain was to his LUQ. He winces upon deep breating. He rates the pain as a 10/10 that is constant in nature. He says that he tried to eat earlier this evening but says that he got nauseous when smelling his food and could not eat. He denies any vomiting, diarrhea, cough, fever, chills or diaphoresis. He denies use of alcohol, tobacco or illicit drug use. He has had a appendectomy prior. Timing/Duration: 4-6 hours Severity/Quality: moderate Location: central, epigastric, back Activities at Onset: rest Prior CP/Workup: no prior chest pain, no prior cardiac workup Associated Symptoms: abdominal pain, back pain, nausea/vomiting (QUYEN GARCIA) Allergies and Home Medications Allergies Coded Allergies: No Known Drug Allergies (Unverified , 11/08/19) Patient Home Medication List Home Medication List Reviewed: Yes (QUYEN GARCIA) Acetaminophen (Tylenol Extra Strength) 500 Mg Tablet, 1,000 MG PO Q6H Prescribed by: CRISTO GLASS on 07/06/22 1631 Glipizide (Glipizide) 10 Mg Tablet, 10 MG PO BIDAC Prescribed by: HERSON KIRBY on 12/03/21 1047 Hydrocodone Bit/Acetaminophen (HYDROcodone/APAP 7.5/325 TAB) 1 Ea Tablet, 1 EA PO Q6HR PRN for PAIN-MODERATE (5-7) Prescribed by: JAZLYN SHORE on 06/11/23 1406 Lisinopril (Lisinopril) 2.5 Mg Tablet, 2.5 MG PO DAILY Prescribed by: HERSON KIRBY on 12/03/21 104 Metformin HCl (Metformin HCl) 1,000 Mg Tablet, 1,000 MG PO BIDAC Prescribed by: HERSON KIRBY on 12/03/21 104 Ondansetron (Ondansetron Odt) 4 Mg Tab.rapdis, 4 MG PO Q6H Prescribed by: HERSON KIRBY on 12/03/21 104 Ondansetron (Ondansetron Odt) 4 Mg Tab.rapdis, 4 MG PO Q6H PRN for NAUSEA/VOMITING-1ST LINE Prescribed by: CRISTO GLASS on 07/06/22 1631 Oxycodone HCl (Oxycodone HCl) 5 Mg Tablet, 5 MG PO Q6H PRN for PAIN-MODERATE (5- 7) Prescribed by: CRISTO GLASS on 07/06/22 1631 Pantoprazole Sodium (Protonix) 40 Mg Tablet.dr, 40 MG PO DAILY Prescribed by: HERSON KIRBY on 12/03/21 104 Pantoprazole Sodium (Pantoprazole Sodium) 40 Mg Tablet.dr, 40 MG PO DAILY Prescribed by: CRISTO GLASS on 07/06/22 1631 Polyethylene Glycol 3350 (Polyethylene Glycol 3350) 17 Gm Powd.pack, 17 GM PO BID Prescribed by: HERSON KIRBY on 12/03/21 104 Pravastatin Sodium (Pravastatin Sodium) 80 Mg Tablet, 80 MG PO HS Prescribed by: HERSON KIRBY on 12/03/21 1047 Review of Systems Review of Systems Constitutional: no symptoms reported; No chills, No diaphoresis, No dizziness EENTM: No Symptoms Reported Respiratory: Denies Cough, Denies Shortness of Air, Denies SOA With Exertion Cardiovascular: Chest Pain (stabbing, burning); Denies Palpitations, Denies Syncope Gastrointestinal: Abdominal Pain (burning), Nausea, Poor Appetite Genitourinary: No Symptoms Reported Musculoskeletal: back pain (QUYEN GARCIA) Past Lxxzafz-Inypjb-Skuhas Hx Patient Social History Tobacco Use?: No Substance use?: No Alcohol Use?: No Pt feels they are or have been: No (DEV SEAY MD) Tobacco Use?: No Use of E-Cig and/or Vaping dev: No Substance use?: No Alcohol Use?: No (QUYEN GARCIA) Immunizations Up To Date Influenza Vaccine Up-to-Date: No; Not Current First/Initial COVID19 Vaccinat: AUG Second COVID19 Vaccination Louis: SEP Third COVID19 Vaccination Date: AUG (DEV SEAY MD) Seasonal Allergies Seasonal Allergies: No (DEV SEAY MD) Past Medical History Surgery/Hospitalization HX: RIGHT INGUINAL HERNIA REPAIR, APPY DM, HTN, HLD Surgeries: Yes (RIGHT INGUINAL HERNIA REPAIR) Abdominal Respiratory: No Cardiac: Yes High Cholesterol, Hypertension Neurological: No Genitourinary: No Gastrointestinal: Yes Pancreatitis Musculoskeletal: No Endocrine: Yes Diabetes, Non-Insulin dep HEENT: No Cancer: No Psychosocial: No Integumentary: No (DEV SEAY MD) Surgeries: Yes Appendectomy (QUYEN GARCIA) Family Medical History Chronic lymphoid leukemia G8 SISTER, Onset:Adolescence Heart Disease, Diabetes, Hypertension (DEV SEAY MD) Physical Exam Vital Signs Vital Signs - First Documented 08/30/23 18:33 Temp 36.3 Pulse 83 Resp 16 B/P (MAP) 123/89 (100) Pulse Ox 96 O2 Delivery Room Air (QUYEN GARCIA) Vital Signs Capillary Refill : (DEV SEAY MD) Height, Weight, BMI Height: '" Weight: lbs. oz. kg; 30.00 BMI Method: (DEV SEAY MD) General Appearance: No Apparent Distress, Mild Distress HEENT: TMs Normal, Normal ENT Inspection Neck: Non Tender, Supple Respiratory: Lungs Clear, Normal Breath Sounds, No Accessory Muscle Use, No Respiratory Distress Cardiovascular: Regular Rate, Rhythm, No Gallop, No Murmur Gastrointestinal: Normal Bowel Sounds, No Organomegaly, Guarding (epigastric, both upper quadrants and LLQ), Tenderness (epigastric, both upper quadrants and LLQ) Extremity: Non Tender, No Calf Tenderness, No Pedal Edema Neurologic/Psychiatric: Alert, Oriented x3, Normal Mood/Affect (QUYEN GARCIA) Progress/Results/Core Measures Results/Orders Lab Results Laboratory Tests Test 08/30/23 18:39 Range/Units Chloride Level 94 L 98-107 MMOL/L Glucose Level 327 H 70-105 MG/DL Calcium Level 9.7 8.5-10.1 MG/DL Corrected Calcium 8.5-10.1 MG/DL Total Bilirubin 0.6 0.1-1.0 MG/DL Albumin 4.6 H 3.2-4.5 GM/DL (QUYEN GARCIA) Medications Given in ED Current Medications Medications Dose Ordered Sig/Kaylan Route Start Time Stop Time Status Last Admin Dose Admin Al Hydrox/Mg Hydrox/Simethicone 30 ml ONCE ONCE PO 08/30/23 19:00 08/30/23 19:01 DC 08/30/23 19:16 30 ML Lidocaine HCl 15 ml ONCE ONCE PO 08/30/23 19:00 08/30/23 19:01 DC 08/30/23 19:16 15 ML Ondansetron HCl 8 mg ONCE ONCE IVP 08/30/23 19:00 08/30/23 19:01 DC 08/30/23 19:16 8 MG Pantoprazole 40 mg ONCE ONCE IV 08/30/23 19:00 08/30/23 19:01 DC 08/30/23 19:16 40 MG (QUYEN GARCIA) Vital Signs/I&O 08/30/23 18:33 Temp 36.3 Pulse 83 Resp 16 B/P (MAP) 123/89 (100) Pulse Ox 96 O2 Delivery Room Air (QUYEN GARCIA) Blood Pressure Mean: 100 Progress Progress Note #1: Time: 18:43 Progress Note Normal vital signs have been reviewed by me. EKG has been interpreted as normal by me as noted below. MADY student is presently interviewing and examining the patient. IV has been established and labs are in process. Progress Note #2: Time: 20:05 Progress Note Patient was interviewed and examined by me along with PA student. He was found to have a diffusely tender abdomen that was more prominently tender in the upper quadrants and epigastrium. Review of his chart and given history reveals that he has had multiple episodes of nonalcoholic pancreatitis. He has also had severe triglyceridemia in the past with triglycerides exceeding 3800. His present serum specimens are compromised due to Lipemia and hemolysis. All labs were reviewed and interpreted by me. I discussed the situation with the lab technicians, and they are not confident in the validity of the results even though test were rerun. There was severe Lipemia and notable hemolysis on all the specimens. CBC was relatively unremarkable. CMP was notable for sodium low at 121, potassium high at 7.8, CO2 low at 12, creatinine high at 1.49, glucose high at 327, AST mildly elevated at 98, and bilirubin normal at 0.6. Lipid panel is partially reported. Total cholesterol is 381. Total triglycerides are pending. Lipase was moderately elevated at 485. A trial of GI cocktail after Zofran was administered as well as Protonix. This did not resolve his pain. He has requested pain medication which is being provided with fentanyl 75 mcg IV. He is being hydrated with 1 L of normal saline. CT of the abdomen and pelvis is pending. We may also obtain a gallbladder ultrasound pending results of the CT. Progress Note #3: Progress Note CT scan was viewed by me. There were inflammatory changes seen near the pancreatic head and nearby visceral structures consistent with the pancreatitis noted on labs. No other major acute abnormalities were appreciated on my interpretation. Radiologist's interpretation was also reviewed as noted below. I discussed the situation with Dr. Shore, general surgeon who previously cared for this patient. He did not believe there was any need for emergent abdominal ultrasound. He excepted consultation. I discussed the case with Dr. Kirby, admitting hospitalist. Given the difficulties with processing the labs which were convoluted by lipemia and hemolysis, admission to the cardiac stepdown unit for higher level of care was deemed appropriate. (DEV SEAY MD) Progress Note : Progress Note Patient is currently rating his pain a 10/10 with his pain mostly in his chest and epigastric area, the pain is constant since it started at noon. He has diffuse tenderness to the abdomen but says it is worse in all upper quadants, epigastric and LLQ at this time, he compares it to the pancreas issues he had, had prior. Regular rate and rhythm of the heart with no murmur, lungs clear to all pryor, no calf tenderness. Notes that he has felt somewhat nauseous during this time. Plan is to order CBC, BMP, Lipase, Magnesium, GI cocktail, protonix at this time. (QUYEN GARCIA) Initial ECG Impression Date: Aug 30, 2023 Initial ECG Impression Time: 18:40 Initial ECG Rate: 71 Initial ECG Rhythm: Normal Sinus Initial ECG Intervals: Normal Initial ECG Impression: Normal Comment Normal sinus rhythm with no ST elevation or depression. No abnormal intervals or axis deviation. (DEV SEAY MD) Diagnostic Imaging Diagonstic Imaging: CT Plain Films/CT/US/NM/MRI: abdomen, pelvis Comments NAME: CHEN SNOW [facility] REC#: [id number] PT STATUS: REG ER : 1985 PHYSICIAN: DEV SEAY MD ADMIT DATE: 08/30/23/ER Signed Date of Exam:08/30/23 CT ABDOMEN/PELVIS W INDICATION: Abdominal pain which radiates the chest, history of hernia repair and appendectomy. TECHNIQUE: Multiple contiguous axial images were obtained through the abdomen and pelvis after administration of intravenous contrast. Auto Exposure Controls were utilized during the CT exam to meet ALARA standards for radiation dose reduction. All CT scans use one or more of the following dose optimizing techniques: automated exposure control, MA and/or KvP adjustment based on patient size and exam type or iterative reconstruction. Comparison to 06/11/2023. The visualized portions of the lung bases are clear. There were no pleural fluid collections. There is no free intraperitoneal air. The liver shows diffuse fatty infiltration. There is a small benign-appearing cyst in the right lobe of the liver laterally. Gallbladder appears normal. The spleen and adrenals are normal. The kidneys bilaterally are unremarkable. There appears to be some thickening and fat stranding about the descending duodenum and 3rd portion of duodenum, compatible with duodenitis. There are inflammatory changes in the uncinate process of the pancreas which may represent focal pancreatitis. The remainder of the pancreas appears unremarkable. There is some inflammatory fat stranding in the root of the mesentery and in the right side of the retroperitoneum in the anterior pararenal space. There is no sign of bowel obstruction or focal bowel wall thickening. Patient has had prior appendectomy. There is no ascites. There is no pelvic mass or adenopathy. IMPRESSION: There is some mild edema of adjacent portions of the 2nd and 3rd duodenum. The findings may represent pancreatitis and/or associated duodenitis. There is some mild inflammatory fat stranding in the root of mesentery in the right anterior pararenal space. There is no abscess or ascites. Patient has had previous appendectomy. Dictated by: Dictated on workstation # [id number] Dict: 08/30/232022 Trans: 08/30/232139 [facility] [id number] Interpreted by: CATHY SANTOS MD Electronically signed by: CATHY SANTOS MD 08/30/232139 (DEV SEAY MD) Departure Communication (Admissions) Time/Spoke to Admitting Phy: 20:45 Dr. Kirby Time/Spoke to Consulting Phy: 20:40 Dr. Shore (DEV SEAY MD) Impression Primary Impression: Recurrent acute pancreatitis Additional Impressions: Hyperlipidemia Qualified Codes: E78.5 - Hyperlipidemia, unspecified Abnormal blood electrolyte level Acute abdominal pain Disposition: ADMITTED INPATIENT Condition: Stable Admissions Decision to Admit Reason: Admit from ER (General) Decision to Admit/Date: Aug 30, 2023 Time/Decision to Admit Time: 20:40 (DEV SEAY MD) Departure-Patient Inst. Referrals: [facility] (PCP/Family) Primary Care Physician Medical Student Attestation and Attending Note: I have personally interviewed and examined this patient along with Quyen campos, PA-S2. I have reviewed student documentation including history, physical, and assessments. I agree with the documentation except where otherwise noted. Exam: General: Alert, oriented, mild to moderate distress from abdominal pain, well developed HEENT: Normocephalic and atraumatic Heart: Regular rate and rhythm without murmur Lungs: Clear to auscultation bilaterally with normal effort Abdomen: Soft, diffusely tender with more intense tenderness in the upper quadrants and epigastrium, mildly distended, normal bowel sounds, mildly tympanic to percussion Neuropsych: Alert, oriented, no focal deficits Skin: Warm and dry without rashes (DEV SEAY MD) Copy Copies To 1: [facility]/DEV HALL MD Aug 30, 2023 18:45 QUYEN GARCIA Aug 30, 2023 19:00
[2023-08-30] MEDS ORDERED: ONDANSETRON INJECTION 4 MG/2 ML (SDV) IVP ONE (19:00)
[2023-08-30] MEDS ORDERED: ANTACID SUSPENSION 30 ML UDC PO ONE (19:00)
[2023-08-30] MEDS ORDERED: LIDOCAINE 2% VISCOUS 15 ML UDC PO ONE (19:00)
[2023-08-30] MEDS ORDERED: PANTOPRAZOLE INJECTION 40 MG VIAL IV ONE (19:00)
[2023-08-30 19:18] LABS: ALBUMIN 4.6 GM/DL (3.2-4.5); CHLORIDE 94 MMOL/L (98-107)
[2023-08-30 19:19] LABS: CALCIUM 9.7 MG/DL (8.5-10.1)
[2023-08-30 19:20] LABS: GLUCOSE 327 MG/DL (70-105); TOTAL PROTEIN 16.3 GM/DL (6.4-8.2)
[2023-08-30 19:21] LABS: CARBON DIOXIDE 12 MMOL/L (21-32)
[2023-08-30 19:22] LABS: BILIRUBIN,TOTAL 0.6 MG/DL (0.1-1.0)
[2023-08-30 19:24] LABS: CREATININE SERUM 1.49 MG/DL (0.60-1.30); GFR ESTIMATED 61
[2023-08-30 19:25] LABS: BUN/CREATININE RATIO 15
[2023-08-30 19:27] LABS: LIPASE 485 U/L (8-78)
[2023-08-30 19:28] LABS: SODIUM 121 MMOL/L (135-145)
[2023-08-30 19:29] LABS: POTASSIUM 7.8 MMOL/L (3.6-5.0)
[2023-08-30] MEDS ORDERED: NS IV 1000 ML 1,000 ML IV SCH ×3 (19:45→22:45)
[2023-08-30 19:46] LABS: BASOPHILS # (AUTO) 0.1 10^3/uL (0.0-0.1); BASOPHILS % (AUTO) 1 % (0-10); EOSINOPHILS # (AUTO) 0.1 10^3/uL (0.0-0.3); EOSINOPHILS % (AUTO) 1 % (0-10); HEMATOCRIT 43 % (40-54); HEMOGLOBIN 15.3 g/dL (13.3-17.7); LYMPHOCYTES # (AUTO) 1.1 10^3/uL (1.0-4.0); LYMPHOCYTES % (AUTO) 14 % (12-44); MEAN CORPUSCULAR HEMOGLOBIN 27 pg (25-34); MEAN CORPUSCULAR HGB CONC 36 g/dL (32-36); MEAN CORPUSCULAR VOLUME 75 fL (80-99); MEAN PLATELET VOLUME 12.3 fL (9.0-12.2); MONOCYTES # (AUTO) 0.4 10^3/uL (0.0-1.0); MONOCYTES % (AUTO) 5 % (0-12); NEUTROPHILS # (AUTO) 6.1 10^3/uL (1.8-7.8); NEUTROPHILS % (AUTO) 78 % (42-75); PLATELET COUNT 160 10^3/uL (130-400); WHITE BLOOD COUNT 7.8 10^3/uL (4.3-11.0)
[2023-08-30 19:49] LABS: ALKALINE PHOSPHATASE 109 U/L (40-136)
[2023-08-30 19:50] LABS: ALANINE AMINOTRANSFERASE 50 U/L (0-55)
[2023-08-30] MEDS ORDERED: fentaNYL INJECTION 100 MCG/2 ML VIAL IVP ONE (20:00)
[2023-08-30 20:03] LABS: CHOLESTEROL 381 MG/DL (< 200); HDL CHOLESTEROL 20 MG/DL (40-60)
[2023-08-30] MEDS ORDERED: HOLD METFORMIN - RECEIVED CONTRAST 20 ML VIAL IV SCH (20:15)
[2023-08-30] MEDS ORDERED: IOHEXOL 350 MG/ML 100 ML (OMNIPAQUE 350) VIAL IV ONE (20:15)
[2023-08-30] MEDS ORDERED: NS 100 ML (IVPB) BAG IV ONE (20:15)
[2023-08-30 20:19] LABS: TRIGLYCERIDES 4642 MG/DL (<150); VLDL CHOLESTEROL 928 MG/DL (5-40)
--- NOTE | 2023-08-30 20:34 | Diagnostic Imaging Report ---
INDICATION: Abdominal pain which radiates the chest, history of hernia repair and appendectomy. TECHNIQUE: Multiple contiguous axial images were obtained through the abdomen and pelvis after administration of intravenous contrast. Auto Exposure Controls were utilized during the CT exam to meet ALARA standards for radiation dose reduction. All CT scans use one or more of the following dose optimizing techniques: automated exposure control, MA and/or KvP adjustment based on patient size and exam type or iterative reconstruction. Comparison to 06/11/2023. The visualized portions of the lung bases are clear. There were no pleural fluid collections. There is no free intraperitoneal air. The liver shows diffuse fatty infiltration. There is a small benign-appearing cyst in the right lobe of the liver laterally. Gallbladder appears normal. The spleen and adrenals are normal. The kidneys bilaterally are unremarkable. There appears to be some thickening and fat stranding about the descending duodenum and 3rd portion of duodenum, compatible with duodenitis. There are inflammatory changes in the uncinate process of the pancreas which may represent focal pancreatitis. The remainder of the pancreas appears unremarkable. There is some inflammatory fat stranding in the root of the mesentery and in the right side of the retroperitoneum in the anterior pararenal space. There is no sign of bowel obstruction or focal bowel wall thickening. Patient has had prior appendectomy. There is no ascites. There is no pelvic mass or adenopathy. IMPRESSION: There is some mild edema of adjacent portions of the 2nd and 3rd duodenum. The findings may represent pancreatitis and/or associated duodenitis. There is some mild inflammatory fat stranding in the root of mesentery in the right anterior pararenal space. There is no abscess or ascites. Patient has had previous appendectomy. Dictated by: Dictated on workstation # [id number]
[2023-08-30 22:00] VITALS: BP 118/82
[2023-08-30] MEDS ORDERED: CALCIUM CARBONATE 500 MG CHEW TABLET PO PRN (22:00)
[2023-08-30] MEDS ORDERED: ONDANSETRON 4 MG ORAL DISSOLVE TABLET PO PRN (22:00)
[2023-08-30] MEDS ORDERED: HYDROmorphone INJECTION 2 MG/ML VIAL IV PRN (22:00)
[2023-08-30] MEDS ORDERED: diphenhydrAMINE INJ 50 MG/ML VIAL IVP PRN (22:00)
[2023-08-30] MEDS ORDERED: ACETAMINOPHEN 325 MG TABLET PO PRN (22:00)
[2023-08-30] MEDS ORDERED: MILK OF MAGNESIA 400 MG/5 ML 30 ML UDC PO PRN (22:00)
[2023-08-30] MEDS ORDERED: BISACODYL 10 MG SUPPOSITORY PR PRN (22:00)
[2023-08-30] MEDS ORDERED: diphenhydrAMINE 25 MG TABLET PO PRN (22:00)
[2023-08-30] MEDS ORDERED: ONDANSETRON INJECTION 4 MG/2 ML (SDV) IV PRN (22:00)
[2023-08-30] MEDS ORDERED: MELATONIN 3 MG TABLET PO PRN (22:00)
[2023-08-30] MEDS ORDERED: LACTULOSE SYRUP 10GM/15ML 30ML UDC PO PRN (22:00)
[2023-08-30] MEDS ORDERED: ANTACID SUSPENSION 30 ML UDC PO PRN (22:00)
[2023-08-30 22:15] VITALS: BP 116/81
[2023-08-30] MEDS ORDERED: LACTATED RINGERS 1,000 ML 1,000 ML IV PRN (22:45)
[2023-08-30] MEDS ORDERED: D5 LR 1,000 ML IV SOLN 1,000 ML IV PRN (22:45)
[2023-08-30 23:00] VITALS: BP 107/81
[2023-08-30] MEDS ORDERED: NS IV 500 ML 500 ML IV PRN (23:00)
--- NOTE | 2023-08-30 23:14 | Tele-ICU Progress Note ---
Progress Note 38M with h/o pancreatitis admitted with acute pancreatitis, severe hypertriglyceridemia. Had abrupt onset epigastric pain with radiation to the back after eating Ramen noodles for lunch. Reported as 10/10 constant stabbing and burning. Similar to pancreatitis a couple years ago. Pain worsened with deep breathing. Has been unable to eat since onset. Has had multiple prior admissions for pancreatitis secondary to severe hyperTG. Was admitted to this facility in 11/2021 and in 10/2019. That admit did refer to prior episodes treated in [place]. A/P: - pancreatitis: CT abdomen with mild edema c/w pancreatitis (or duodenitis). IVF, pain control, bowel rest. Treat underlying severe hyperTG as below. Trend lipase- initial 485 - hypertriglyceridemia: markedly elevated. Lab reading 4642 and reported to be grossly lipemic. Will start insulin gtt at fixed rate, add glucose when needed (was 327 on BMP). - CHLOE: likely prerenal. IVF ongoing. Monitor renal function and UOP. - hyperkalemia: K reported to be 7.8 on BMP at 1630. Thought to be falsely elevated due to hyperTG and hemolysis of the sample. Will repeat at 0100. Starting on insulin gtt which should help. - hyponatremia: Na 121. Goal correction 6-8 meq/dL over first 24hrs. NS is running now and bolus already given. Will await 0100 BMP (2 hrs) and adjust fluids accordingly. If K normal, will change to LR. If Na incrementing too quickly, will change to 1/2NS. - metabolic acidosis: Noted to be similar on prior admits, likely secondary to the pancreatitis. Will repeat chem at 0100, VBG for further eval. Will send ketones and lactic as well. Patient assessed via real time audiovisual communication system. CCT 19 min Focused Exam Height, Weight, BMI Height: '" Weight: lbs. oz. kg; 30.00 BMI Method: ANTOINETTE MORAES MD Aug 30, 2023 23:14
[2023-08-30] MEDS: ENOXAPARIN 40 MG/0.4 ML SYRINGE SC SCH (23:23)
[2023-08-30] MEDS: oxyCODONE IMMEDIATE RELEASE 5 MG TABLET PO PRN (23:31)
[2023-08-30 23:35] VITALS: BP 107/81
[2023-08-31] VITALS (24 sets, daily range): BP systolic 95–120; BP diastolic 60–90
[2023-08-31] MEDS: HYDROmorphone INJECTION 2 MG/ML VIAL IV PRN ×9 (00:32→23:05)
[2023-08-31 01:19] LABS: CALCIUM 9.3 MG/DL (8.5-10.1)
[2023-08-31 01:23] LABS: CREATININE SERUM 1.05 MG/DL (0.60-1.30)
[2023-08-31] MEDS ORDERED: SODIUM BICARBONATE 8.4% VIAL 100 MEQ in WATER FOR INJECTION, STERILE 1,000 ML IV SCH (01:45)
[2023-08-31] MEDS ORDERED: SODIUM BICARB 8.4% 50 MEQ/50 ML (ABBOTT) SYR ONE (01:58)
[2023-08-31] MEDS ORDERED: D5W 1,000 ML IV SOLUTION 1,000 ML ONE (01:58)
[2023-08-31] MEDS: D5W IV SCH ×3 (02:15→11:58)
[2023-08-31] MEDS: SODIUM BICARBONATE IV SCH ×3 (02:15→11:58)
[2023-08-31 04:56] LABS: EOSINOPHILS # (AUTO) 0.1 10^3/uL (0.0-0.3); EOSINOPHILS % (AUTO) 1 % (0-10); MEAN CORPUSCULAR VOLUME 76 fL (80-99)
[2023-08-31 04:58] LABS: BASOPHILS # (AUTO) 0.1 10^3/uL (0.0-0.1); BASOPHILS % (AUTO) 1 % (0-10); HEMATOCRIT 48 % (40-54); HEMOGLOBIN 17.7 g/dL (13.3-17.7); LYMPHOCYTES # (AUTO) 1.9 10^3/uL (1.0-4.0); LYMPHOCYTES % (AUTO) 19 % (12-44); MEAN CORPUSCULAR HEMOGLOBIN 28 pg (25-34); MEAN CORPUSCULAR HGB CONC 37 g/dL (32-36); MONOCYTES # (AUTO) 0.7 10^3/uL (0.0-1.0); MONOCYTES % (AUTO) 7 % (0-12); NEUTROPHILS # (AUTO) 7.3 10^3/uL (1.8-7.8); NEUTROPHILS % (AUTO) 72 % (42-75); PLATELET COUNT 221 10^3/uL (130-400); WHITE BLOOD COUNT 10.1 10^3/uL (4.3-11.0)
[2023-08-31 05:02] LABS: ALBUMIN 3.8 GM/DL (3.2-4.5)
[2023-08-31 05:03] LABS: CALCIUM 8.3 MG/DL (8.5-10.1)
[2023-08-31 05:04] LABS: TOTAL PROTEIN 12.8 GM/DL (6.4-8.2)
[2023-08-31 05:06] LABS: BILIRUBIN,TOTAL 0.4 MG/DL (0.1-1.0)
[2023-08-31 05:11] LABS: MAGNESIUM 2.5 MG/DL (1.6-2.4)
[2023-08-31 05:15] LABS: POTASSIUM 7.2 MMOL/L (3.6-5.0)
[2023-08-31] MEDS ORDERED: SODIUM POLYSTYRENE POWDER 15 GM BOTTLE PO ONE (06:00)
[2023-08-31] MEDS ORDERED: inSUlin ASPART 1 UNIT/0.01 ML (PER UNIT) SC SCH (06:00)
[2023-08-31] MEDS ORDERED: SODIUM BICARB 8.4% 50 MEQ/50 ML (ABBOTT) SYR IV ONE (06:00)
[2023-08-31] MEDS ORDERED: CALCIUM GLUCONATE 1GM IVPB 100 ML IV SCH (06:00)
[2023-08-31] MEDS: POTASSIUM CL 10MEQ/50ML IVPB 50 ML IV SCH (06:10)
[2023-08-31] MEDS: MAGNESIUM 1 GM/100 ML IVPB 100 ML IV SCH (06:10)
[2023-08-31] MEDS: POTASSIUM CHLORIDE 20 MEQ TABLET PO SCH (06:11)
[2023-08-31] MEDS: DEXTROSE 10% IV 1,000 ML 1,000 ML IV SCH ×4 (06:26→22:59)
[2023-08-31 07:26] LABS: CALCIUM 8.1 MG/DL (8.5-10.1); CREATININE SERUM 0.86 MG/DL (0.60-1.30)
[2023-08-31] MEDS ORDERED: FLU QUADRIvalent (6 months+) 60 mcg/0.5 ml 2023-2024 (FLUARIX) IM ONE (07:30)
[2023-08-31] MEDS: PANTOPRAZOLE INJECTION 40 MG VIAL IV SCH (07:43)
[2023-08-31] MEDS: DOCUSATE SODIUM 100 MG CAPSULE PO SCH ×2 (09:10→21:48)
[2023-08-31] MEDS: SENNOSIDES 8.6 MG TABLET PO SCH ×2 (09:11→21:48)
--- NOTE | 2023-08-31 09:25 | Tele-ICU Progress Note ---
Subjective Date Seen by a Provider: Aug 31, 2023 Time Seen by a Provider: 09:24 Subjective/Events-last exam (Tele-ICU Physician , Progress Note ) Service provided via interactive audio and video telecommunications E-CARE system to a patient admitted to ICU bed in [facility]. Patient is seen today due to persistent need of ICU care Available chart/ vitals / labs / Images reviewed Video assessment done using teleICU camera, rest of exam as per RN Discussed with RN Events overnight : Afebrile hemodynamically stable Respiratory - RA I/O =+ Drips: insulin gtt LR Pressors- no Hospital course: (08/30) 38 Y/O Male with Pancreatitis secondary to Triglyceridemia. Insulin drip started. A/P Pancreatic triglyceride induced -CT abdomen with mild edema c/w pancreatitis (or duodenitis). -- hydration - Insulin gtt with goal for TG below 500 mg/dL -glucose levels q1h - cont D5 gtt - monitor triglycerides q12h -IF patient's triglycerides do not improve with insulin drip. or clinically decompensates - will have to consider plasmapheresis -monitor for hypocalcemia, lactic acidosis, follow WBC -pain control - NPO , when stat diet keep on severely restricted dietary fat diet Hypertriglyceridemia- on admission 4642 - insulin gtt at fixed rate CHLOE: l -ikely prerenal. IVF ongoing. Monitor renal function and UOP. Hyperkalemia - K reported to be 7.8 on BMP at 1630. Thought to be falsely elevated due to hyperTG and hemolysis of the sample. Will repeat at 0100. Starting on insulin gtt which should help. Pseudohyponatremia: Na 121 - with elevated TGL of 4.6K expexted pseudo hyponatremia ( about 10 mEqg/L ) - follow closely Metabolic acidosis: Noted to be similar on prior admits, likely secondary to the pancreatitis. d ketones and lactic as well. Lines : periph , (Central Line Necessity Reviewed) Pappas: void OG: Nutrition: Analgesia: Anxiety/ delirium VTE Prophylaxis: christiana Stress Ulcer Prophylaxis: na Plans in collaboration with bedside consultants and IM MDs. Discussed with RN to reach out if any questions or concerns Case and care daily discussed on multidisciplinary rounds ( RN, PharmD, Studio Operator , Respiratory Therapy, cinder pit worker ) A total of 33 minutes of critical care time was devoted to this patient today, required to treat and/or prevent further deterioration of critical care condition ( as above ) . I am remotely monitoring this patient from another state. I am unable to do the bedside exam, and history/physical and pertinent information is taken from other notes in the computer and bedside staff. Sepsis Event Evaluation Height, Weight, BMI Height: '" Weight: lbs. oz. kg; 30.93 BMI Method: Focused Exam Lactate Level 08/31/23 01:00: Lactic Acid Level 1.29 Exam Exam Patient acknowledged, consented, and participated in this virtual visit which was conducted using real time audio/video Vital Signs Date Time Temp Pulse Resp B/P (MAP) Pulse Ox O2 Delivery O2 Flow Rate FiO2 08/31/23 08:00 81 11 100/70 (80) 94 Room Air 08/31/23 07:39 78 08/31/23 07:00 81 23 95/76 (82) 96 Room Air 08/31/23 06:00 73 12 95/81 (86) 95 Room Air 08/31/23 05:00 77 10 100/62 (75) 94 Room Air 08/31/23 04:00 77 11 100/68 (79) 94 Room Air 08/31/23 03:00 80 17 107/72 (84) 95 Room Air 08/31/23 02:00 82 11 106/81 (89) 94 Room Air 08/31/23 01:00 84 12 119/90 (100) 95 Room Air 08/31/23 01:00 80 08/31/23 00:00 82 13 109/77 (88) 95 Room Air 08/31/23 00:00 95 Room Air 08/30/23 23:35 35.7 76 08/30/23 23:30 79 13 95 Room Air 08/30/23 23:00 76 12 107/81 (90) 94 Room Air 08/30/23 22:49 95 Room Air 08/30/23 22:30 72 12 96 Room Air 08/30/23 22:15 77 12 116/81 (93) 97 Room Air 08/30/23 22:00 95 Room Air 08/30/23 22:00 35.7 71 17 118/82 (94) 97 Room Air 08/30/23 21:59 80 08/30/23 21:49 89 16 100/79 96 Room Air 08/30/23 18:33 36.3 83 16 123/89 (100) 96 Room Air I & O 08/31/23 07:00 Intake Total 500 ml Output Total 800 ml Balance -300 ml Height & Weight Height: '" Weight: lbs. oz. kg; 30.93 BMI Method: General Appearance: No Apparent Distress, Mild Distress HEENT: TMs Normal, Normal ENT Inspection Neck: Non Tender, Supple Respiratory: Lungs Clear, Normal Breath Sounds, No Accessory Muscle Use, No Respiratory Distress Cardiovascular: Regular Rate, Rhythm, No Gallop, No Murmur Extremity: Non Tender, No Calf Tenderness, No Pedal Edema Neurologic/Psychiatric: Alert, Oriented x3, Normal Mood/Affect Results Lab Laboratory Tests 08/30/23 18:39 08/31/23 01:00 08/31/23 04:25 08/31/23 06:55 Assessment/Plan Assessment/Plan 1 TAMIE DELGADO MD Aug 31, 2023 09:25
--- NOTE | 2023-08-31 10:47 | Consultation - Surgery ---
TEDDY BALTAZAR 08/31/23 1047: History of Present Illness History of Present Illness Patient Consulted On(mayito/time) 08/31/23 9:00 Date Seen by Provider: Aug 31, 2023 Time Seen by Provider: 10:00 Reason for Visit: LUQ pain History of Present Illness David is a 38 year old man who presented to the emergency department for LUQ pain. Patient stated pain started yesterday at noon after he ate lunch. It first started out a chest pain that was 10/10 but it migrated to the stomach/LUQ that radiates to the back and remained a 10/10. With the pain, the patient has also experienced some nausea but has had no vomiting. He has experienced pain like this before several times with the last time happening a year ago where he was admitted and given pain control and IV fluids. He said he started having LUQ pain attacks in 2017 where doctors at [facility] in [place] said he had "pancreas p roblems". Patient used to drink but stopped in 2014. Currently he rates his Pain a 5/10 in the LUQ still radiating to the back, but feels like his pain is reasonably under control. Allergies and Home Medications Allergies Coded Allergies: No Known Drug Allergies (Unverified , 11/08/19) Patient Home Medication List Acetaminophen (Tylenol Extra Strength) 500 Mg Tablet, 1,000 MG PO Q6H Prescribed by: CRISTO GLASS on 07/06/22 1631 Glipizide (Glipizide) 10 Mg Tablet, 10 MG PO BIDAC Prescribed by: HERSON KIRBY on 12/03/21 1047 Hydrocodone Bit/Acetaminophen (HYDROcodone/APAP 7.5/325 TAB) 1 Ea Tablet, 1 EA P O Q6HR PRN for PAIN-MODERATE (5-7) Prescribed by: JAZLYN SHORE on 06/11/23 1406 Lisinopril (Lisinopril) 2.5 Mg Tablet, 2.5 MG PO DAILY Prescribed by: HERSON KIRBY on 12/03/21 1047 Metformin HCl (Metformin HCl) 1,000 Mg Tablet, 1,000 MG PO BIDAC Prescribed by: HERSON KIRBY on 12/03/21 1047 Ondansetron (Ondansetron Odt) 4 Mg Tab.rapdis, 4 MG PO Q6H Prescribed by: HERSON KIRBY on 12/03/21 1047 Ondansetron (Ondansetron Odt) 4 Mg Tab.rapdis, 4 MG PO Q6H PRN for NAUSEA/VOMITING-1ST LINE Prescribed by: CRISTO GLASS on 07/06/22 163 Oxycodone HCl (Oxycodone HCl) 5 Mg Tablet, 5 MG PO Q6H PRN for PAIN-MODERATE (5- 7) Prescribed by: CRISTO GLASS on 07/06/22 1631 Pantoprazole Sodium (Protonix) 40 Mg Tablet.dr, 40 MG PO DAILY Prescribed by: HERSON KIRBY on 12/03/21 104 Pantoprazole Sodium (Pantoprazole Sodium) 40 Mg Tablet.dr, 40 MG PO DAILY Prescribed by: CRISTO GLASS on 07/06/22 163 Polyethylene Glycol 3350 (Polyethylene Glycol 3350) 17 Gm Powd.pack, 17 GM PO BID Prescribed by: HERSON KIRBY on 12/03/21 104 Pravastatin Sodium (Pravastatin Sodium) 80 Mg Tablet, 80 MG PO HS Prescribed by: HERSON KIRBY on 12/03/21 1047 Past Rcvbtay-Oosmiv-Chdttt Hx Patient Social History Smoking Status: Never a Smoker Alcohol Use?: No Immunizations Up To Date Date of Influenza Vaccine: Aug 27, 2020 Seasonal Allergies Seasonal Allergies: No Surgeries History of Surgeries: Yes Surgeries: Appendectomy Respiratory History of Respiratory Disorde: No Cardiovascular History of Cardiac Disorders: Yes Cardiac Disorders: High Cholesterol, Hypertension Neurological History of Neurological Disord: No Genitourinary History of Genitourinary Disor: No Gastrointestinal History of Gastrointestinal Di: Yes Gastrointestinal Disorders: Pancreatitis Musculoskeletal History of Musculoskeletal Dis: No Endocrine History of Endocrine Disorders: Yes Endocrine Disorders: Diabetes, Non-Insulin dep HEENT History of HEENT Disorders: No Cancer History of Cancer: No Psychosocial History of Psychiatric Problem: No Integumentary History of Skin or Integumenta: No Family Medical History Significant Family History: Cancer (sister had cancer of some kind), Diabetes, Hypertension, Other Conditions/Hx (High cholesterol in mother ) Family Medial History: Chronic lymphoid leukemia G8 SISTER, Onset:Adolescence Review of Systems-General Constitutional: No chills EENTM: No ear pain, No blurred vision, No double vision, No eye pain Respiratory: No cough, No dyspnea on exertion; short of breath (due to pain with deep inspiration) Cardiovascular: chest pain (some chest pain that is now more LUQ abdominal pain); No edema Gastrointestinal: abdominal pain (LUQ that radiates to his back ), heartburn (some recent heartburn), nausea; No vomiting Genitourinary: dysuria (had some dysuria after haveing catheter removed ) Physical Exam-General Problems Physical Exam Vital Signs Vital Signs - First Documented 08/30/23 18:33 Temp 36.3 Pulse 83 Resp 16 B/P (MAP) 123/89 (100) Pulse Ox 96 O2 Delivery Room Air Capillary Refill : General Appearance: mild distress HEENT: No pharyngeal erythema Neck: non-tender, supple Respiratory: no respiratory distress, no accessory muscle use Cardiovascular: regular rate, rhythm, no edema, no murmur Peripheral Pulses: 3+ Dorsalis Pedis (R), 3+ Left Dors-Pedis (L), 3+ Radial Pulses (R), 3+ Radial Pulses (L) Gastrointestinal: normal bowel sounds, guarding, tenderness (on the left side of his abdomen including some tenderenss in LLQ) Neurologic/Psychiatric: sensory deficit (decreased sensation of lateral aspect of left foot) Skin: cool (lower extremeties) Lymphatic: no adenopathy (supraclavicular and cervical) Data Review Labs Laboratory Tests 08/30/23 18:39: White Blood Count 7.8, Red Blood Count 5.72H, Hemoglobin 15.3, Hematocrit 43, Mean Corpuscular Volume 75L, Mean Corpuscular Hemoglobin 27, Mean Corpuscular Hemoglobin Concent 36, Red Cell Distribution Width 14.2, Platelet Count 160, Mean Platelet Volume 12.3H, Immature Granulocyte % (Auto) 1, Neutrophils (%) (Auto) 78H, Lymphocytes (%) (Auto) 14, Monocytes (%) (Auto) 5, Eosinophils (%) (Auto) 1, Basophils (%) (Auto) 1, Neutrophils # (Auto) 6.1, Lymphocytes # (Auto) 1.1, Monocytes # (Auto) 0.4, Eosinophils # (Auto) 0.1, Basophils # (Auto) 0.1, Immature Granulocyte # (Auto) 0.1, Sodium Level 121*L, Potassium Level 7.8#*H, Chloride Level 94L, Carbon Dioxide Level 12L, Anion Gap 15H, Blood Urea Nitrogen 23H, Creatinine 1.49H, Estimat Glomerular Filtration Rate 61, BUN/Creatinine Ratio 15, Glucose Level 327H, Calcium Level 9.7, Corrected Calcium , Total Bilirubin 0.6, Aspartate Amino Transf (AST/SGOT) 98H, Alanine Aminotransferase (ALT/SGPT) 50, Alkaline Phosphatase 109, Total Protein 16.3H, Albumin 4.6H, Lipase 485H 08/30/23 19:32: Triglycerides Level 4642H, Cholesterol Level 381H, LDL Cholesterol Direct 53, VLDL Cholesterol 928H, HDL Cholesterol 20L 08/30/23 19:39: Serum Alcohol < 10 08/30/23 23:22: Glucometer 232H 08/31/23 00:31: Glucometer 183H 08/31/23 01:00: Venous Blood pH 7.37, Venous Blood Partial Pressure CO2 40, Venous Blood HCO3 23, Sodium Level 128L, Potassium Level 5.0, Chloride Level 102, Carbon Dioxide Level 8*L, Anion Gap 18H, Blood Urea Nitrogen 17, Creatinine 1.05, Estimat Glomerular Filtration Rate 93, BUN/Creatinine Ratio 16, Glucose Level 162H, Lactic Acid Level 1.29, Calcium Level 9.3 08/31/23 02:37: Glucometer 115H 08/31/23 03:31: Glucometer 80 08/31/23 04:25: White Blood Count 10.1, Red Blood Count 6.23H, Hemoglobin 17.7, Hematocrit 48, Mean Corpuscular Volume 76L, Mean Corpuscular Hemoglobin 28, Mean Corpuscular Hemoglobin Concent 37H, Red Cell Distribution Width 16.1H, Platelet Count 221, Mean Platelet Volume , Immature Granulocyte % (Auto) 1, Neutrophils (%) (Auto) 72, Lymphocytes (%) (Auto) 19, Monocytes (%) (Auto) 7, Eosinophils (%) (Auto) 1, Basophils (%) (Auto) 1, Neutrophils # (Auto) 7.3, Lymphocytes # (Auto) 1.9, Monocytes # (Auto) 0.7, Eosinophils # (Auto) 0.1, Basophils # (Auto) 0.1, Immature Granulocyte # (Auto) 0.1, Percent Immature Platelet Fraction 4.4, Sodium Level 129L, Potassium Level 7.2#*H, Chloride Level 100, Carbon Dioxide L evel 15L, Anion Gap 14, Blood Urea Nitrogen 17, Creatinine 1.00, Estimat Glomerular Filtration Rate 98, BUN/Creatinine Ratio 17, Glucose Level 79, Calcium Level 8.3L, Corrected Calcium 8.5, Magnesium Level 2.5H, Total Bilirubin 0.4, Aspartate Amino Transf (AST/SGOT) 100H, Alanine Aminotransferase (ALT/SGPT) 67H, Alkaline Phosphatase 79, Total Protein 12.8H, Albumin 3.8, Amylase Level 252H 08/31/23 04:26: Glucometer 107 08/31/23 05:21: Glucometer 89 08/31/23 06:37: Glucometer 100 08/31/23 06:55: Sodium Level 133L, Potassium Level 6.6*H, Chloride Level 95L, Carbon Dioxide Level 20L, Anion Gap 18H, Blood Urea Nitrogen 14, Creatinine 0.86, Estimat Glomerular Filtration Rate 113, BUN/Creatinine Ratio 16, Glucose Level 81, Ca lcium Level 8.1L 08/31/23 07:30: Glucometer 120H 08/31/23 08:34: Glucometer 130H 08/31/23 09:38: Glucometer 174H 08/31/23 10:30: Glucometer 156H Radiology CT abdomen pelvis 08/30 IMPRESSION: There is some mild edema of adjacent portions of the 2nd and 3rd duodenum. The findings may represent pancreatitis and/or associated duodenitis. There is some mild inflammatory fat stranding in the root of mesentery in the right anterior pararenal space. There is no abscess or ascites. Patient has had previous appendectomy. Abdominal US IMPRESSION: 1. Hepatomegaly and hepatic steatosis with small hepatic cysts. 2. No evidence of cholelithiasis or acute cholecystitis. Assessment/Plan Assessment/Plan Assessment/Plan Pancreatitis likely due to hypertriglyceridemia Abdominal Pain Hyperkalemia GERD Plan: Make patient NPO and continue supportive care Continue D10 and insulin to improve Hyperkalemia JAZLYN SHORE DO 08/31/23 1440: History of Present Illness History of Present Illness Time Seen by Provider: 11:31 History of Present Illness Surgery asked to consult regarding Pancreatitis and abdominal pain. HPI per ED: David presents today with chest pain that radiates to his back and abdominal area since noon today. He says that the pain started after eating kerry noodles for lunch. He describes the pain as a stabbing and burning pain and relates it to the pain that he had with his pancreas a couple years prior but states that pain was to his LUQ. He winces upon deep breating. He rates the pain as a 10/10 that is constant in nature. He says that he tried to eat earlier this evening but says that he got nauseous when smelling his food and could not eat. He denies any vomiting, diarrhea, cough, fever, chills or diaphoresis. He denies use of alcohol, tobacco or illicit drug use. He has had a appendectomy prior. Timing/Duration: 4-6 hours Severity/Quality: moderate Location: central, epigastric, back Activities at Onset: rest Prior CP/Workup: no prior chest pain, no prior cardiac workup Associated Symptoms: abdominal pain, back pain, nausea/vomiting When I saw pt he was still having pain, but also had a tray of clear liquids in front of him. He has had pancreatitis attacks before. Allergies and Home Medications Allergies Coded Allergies: No Known Drug Allergies (Unverified , 11/08/19) Patient Home Medication List Home Medication List Reviewed: Yes Acetaminophen (Tylenol Extra Strength) 500 Mg Tablet, 1,000 MG PO Q6H Prescribed by: CRISTO GLASS on 07/06/22 1631 Glipizide (Glipizide) 10 Mg Tablet, 10 MG PO BIDAC Prescribed by: HERSON KIRBY on 12/03/21 1047 Hydrocodone Bit/Acetaminophen (HYDROcodone/APAP 7.5/325 TAB) 1 Ea Tablet, 1 EA PO Q6HR PRN for PAIN-MODERATE (5-7) Prescribed by: JAZLYN SHORE on 06/11/23 1406 Lisinopril (Lisinopril) 2.5 Mg Tablet, 2.5 MG PO DAILY Prescribed by: HERSON KIRBY on 12/03/21 1047 Metformin HCl (Metformin HCl) 1,000 Mg Tablet, 1,000 MG PO BIDAC Prescribed by: HERSON KIRBY on 12/03/21 1047 Ondansetron (Ondansetron Odt) 4 Mg Tab.rapdis, 4 MG PO Q6H Prescribed by: HERSON KIRBY on 12/03/21 1047 Ondansetron (Ondansetron Odt) 4 Mg Tab.rapdis, 4 MG PO Q6H PRN for NAUSEA/VOMITING-1ST LINE Prescribed by: CRISTO GLASS on 07/06/22 1631 Oxycodone HCl (Oxycodone HCl) 5 Mg Tablet, 5 MG PO Q6H PRN for PAIN-MODERATE (5- 7) Prescribed by: CRISTO GLASS on 07/06/22 1631 Pantoprazole Sodium (Protonix) 40 Mg Tablet.dr, 40 MG PO DAILY Prescribed by: HERSON KIRBY on 12/03/21 1047 Pantoprazole Sodium (Pantoprazole Sodium) 40 Mg Tablet.dr, 40 MG PO DAILY Prescribed by: CRISTO GLASS on 07/06/22 1631 Polyethylene Glycol 3350 (Polyethylene Glycol 3350) 17 Gm Powd.pack, 17 GM PO BID Prescribed by: HERSON KIRBY on 12/03/21 104 Pravastatin Sodium (Pravastatin Sodium) 80 Mg Tablet, 80 MG PO HS Prescribed by: HERSON KIRBY on 12/03/21 1047 Past Rmmshkl-Uyfgwu-Nxbwhw Hx Patient Social History Smoking Status: Never a Smoker Alcohol Use?: No (quit in appx 2014) Surgeries History of Surgeries: Yes (hernia repair) Surgeries: Appendectomy Respiratory History of Respiratory Disorde: No Cardiovascular History of Cardiac Disorders: Yes Cardiac Disorders: High Cholesterol, Hypertension Neurological History of Neurological Disord: No Genitourinary History of Genitourinary Disor: No Gastrointestinal History of Gastrointestinal Di: Yes (Pancreatitis) Musculoskeletal History of Musculoskeletal Dis: No Endocrine Endocrine Disorders: Diabetes, Non-Insulin dep HEENT History of HEENT Disorders: No Hearing Impairment: Denies Cancer History of Cancer: No Psychosocial History of Psychiatric Problem: No Integumentary History of Skin or Integumenta: No Blood Transfusions History of Blood Disorders: No Family Medical History Significant Family History: Cancer (sister had cancer of some kind), Diabetes, Hypertension, Other Conditions/Hx (High cholesterol in mother ) Family Medial History: Chronic lymphoid leukemia G8 SISTER, Onset:Adolescence Review of Systems-General Constitutional: No chills; malaise, weakness EENTM: No ear pain, No eye pain, No epistaxis Respiratory: No cough, No dyspnea on exertion; short of breath (due to pain w ith deep inspiration) Cardiovascular: chest pain (some chest pain that is now more LUQ abdominal pain); No edema Gastrointestinal: abdominal pain (LUQ that radiates to his back ); No dysphagia; heartburn (some recent heartburn); No jaundice; nausea; No vomiting Genitourinary: dysuria (had some dysuria after haveing catheter removed ); No hematuria Musculoskeletal: back pain, joint pain, muscle stiffness Skin: No change in color, No change in hair/nails Psychiatric/Neurological: Denies Anxiety, Denies Depressed, Denies Seizure Physical Exam-General Problems Physical Exam General Appearance: mild distress, obese Eyes: Bilateral Eye PERRL, Bilateral Eye EOMI HEENT: pharynx normal; No scleral icterus (R), No scleral icterus (L) Neck: non-tender, supple Respiratory: lungs clear, normal breath sounds, no respiratory distress, no accessory muscle use Cardiovascular: regular rate, rhythm, no murmur Gastrointestinal: normal bowel sounds, guarding, tenderness (on the left side of his abdomen including some tenderenss in LLQ), hernia (umbilical, bigger than a cm) Extremities: no pedal edema Neurologic/Psychiatric: alert, oriented x 3, sensory deficit (decreased sensation of lateral aspect of left foot) Skin: normal color, warm/dry Lymphatic: no adenopathy (supraclavicular and cervical) Assessment/Plan Assessment/Plan Assessment/Plan Pancreatitis likely due to hypertriglyceridemia Abdominal Pain Hyperkalemia GERD Plan: Make patient NPO and continue supportive care Continue D10 and insulin to improve Hyperkalemia Supervisory-Addendum Brief Verification & Attestation Participated in pt care: history, MDM, physical Personally performed: exam, history, MDM, supervision of care Care discussed with: Medical Student Procedures: n/a Verification and Attestation of Medical Student E/M Service A medical student performed and documented this service. I then reviewed and verified all information documented by the medical student and made modifications to such information, when appropriate. I personally performed a physical exam, medical decision making and then discussed any differences betw een the notes and made revisions as necessary to create one note. Jazlyn Shore , 08/31/23 , 14:44 TEDDY BALTAZAR Aug 31, 2023 10:47 JAZLYN SHORE DO Aug 31, 2023 14:40
--- NOTE | 2023-08-31 11:56 | History & Physical ---
JEREMIE CHAVARRIA 08/31/23 1156: History of Present Illness History of Present Illness Reason for visit/HPI David is a 38 year old man with T2D who presented to the ED yesterday for chest pain and abdominal pain. The pain started after he started eating lunch around noon time. Patient describes the pain as stabbing, and it is diffuse now, however, upon palpation he has the most pain in the RUQ. Patient winces upon palpation- both light and deep. He says that the pain medication has helped a bit but not too much. Patient winces when breathing. Says his pain gets worse when he moves around too much. Patient denies any shortness of breath, fever, or chest pain right now. Says he is not an alcohol or recreational drug user. Patient's will be brining his medications in. Date of Admission Aug 30, 2023 at 21:42 Date Seen by a Provider: Aug 31, 2023 Time Seen by a Provider: 12:03 I consulted on this patient on 08/31/23 11:54 Attending Physician [facility] Admitting Physician Admitting Physician: Rosalinda Kirby DO Attending Physician: Rosalinda Kirby DO Consult Allergies and Home Medications Allergies Coded Allergies: No Known Drug Allergies (Unverified , 11/08/19) Patient Home Medication List Home Medication List Reviewed: No Acetaminophen (Tylenol Extra Strength) 500 Mg Tablet, 1,000 MG PO Q6H Prescribed by: CRISTO GLASS on 07/06/22 1631 Glipizide (Glipizide) 10 Mg Tablet, 10 MG PO BIDAC Prescribed by: ROSALINDA KIRBY on 12/03/21 1047 Hydrocodone Bit/Acetaminophen (HYDROcodone/APAP 7.5/325 TAB) 1 Ea Tablet, 1 EA PO Q6HR PRN for PAIN-MODERATE (5-7) Prescribed by: JAZLYN SHORE on 06/11/23 1406 Lisinopril (Lisinopril) 2.5 Mg Tablet, 2.5 MG PO DAILY Prescribed by: ROSALINDA KIRBY on 12/03/21 1047 Metformin HCl (Metformin HCl) 1,000 Mg Tablet, 1,000 MG PO BIDAC Prescribed by: ROSALINDA KIRBY on 12/03/21 1047 Ondansetron (Ondansetron Odt) 4 Mg Tab.rapdis, 4 MG PO Q6H Prescribed by: ROSALINDA KIRBY on 12/03/21 1047 Ondansetron (Ondansetron Odt) 4 Mg Tab.rapdis, 4 MG PO Q6H PRN for NAUSEA/VOMITING-1ST LINE Prescribed by: CRISTO GLASS on 07/06/22 1631 Oxycodone HCl (Oxycodone HCl) 5 Mg Tablet, 5 MG PO Q6H PRN for PAIN-MODERATE (5- 7) Prescribed by: CRISTO GLASS on 07/06/22 1631 Pantoprazole Sodium (Protonix) 40 Mg Tablet.dr, 40 MG PO DAILY Prescribed by: ROSALINDA KIRBY on 12/03/21 1047 Pantoprazole Sodium (Pantoprazole Sodium) 40 Mg Tablet.dr, 40 MG PO DAILY Prescribed by: CRISTO GLASS on 07/06/22 1631 Polyethylene Glycol 3350 (Polyethylene Glycol 3350) 17 Gm Powd.pack, 17 GM PO BID Prescribed by: ROSALINDA KIRBY on 12/03/21 104 Pravastatin Sodium (Pravastatin Sodium) 80 Mg Tablet, 80 MG PO HS Prescribed by: ROSALINDA KIRBY on 12/03/21 1047 Past Cuksvxz-Uwnuff-Dqijzn Hx Patient Social History Marrital Status: Tobacco Use?: No Use of E-Cig and/or Vaping dev: No Substance use?: No Alcohol Use?: No Pt feels they are or have been: No Immunizations Up To Date Date of Influenza Vaccine: Aug 27, 2020 First/Initial COVID19 Vaccinat: AUG Second COVID19 Vaccination Louis: NOV Tetanus Booster (TDap): Unknown Seasonal Allergies Seasonal Allergies: No Current Status Communicates: Verbally Primary Language: Colombian Preferred Spoken Language: Colombian Implanted or Applied Medical D: None Past Medical History Surgeries: Appendectomy High Cholesterol, Hypertension Pancreatitis Diabetes, Non-Insulin dep IDDM HTN HLD Family Medical History Chronic lymphoid leukemia G8 SISTER, Onset:Adolescence Heart Disease, Diabetes, Hypertension Review of Systems Constitutional: No chills, No diaphoresis EENTM: No hearing loss, No blurred vision, No double vision Respiratory: No cough, No dyspnea on exertion Cardiovascular: No edema Gastrointestinal: RUQ, LUQ Musculoskeletal: No back pain Skin: No change in color Physical Exam Vital Signs Vital Signs - First Documented 08/30/23 18:33 Temp 36.3 Pulse 83 Resp 16 B/P (MAP) 123/89 (100) Pulse Ox 96 O2 Delivery Room Air Capillary Refill : Height, Weight, BMI Height: '" Weight: lbs. oz. kg; 30.93 BMI Method: General Appearance: Mild Distress HEENT: Normal ENT Inspection Neck: Full Range of Motion, Normal Inspection Respiratory: Normal Breath Sounds, No Accessory Muscle Use, No Respiratory Distress Cardiovascular: Regular Rate, Rhythm Gastrointestinal: Tenderness Neurologic/Psychiatric: Alert, Oriented x3, No Motor/Sensory Deficits Assessment/Plan Assessment and Plan Assessment: Acute Pancreatitis Hypertriglyceridemia Pre-Renal CHLOE Hyperkalemia Hyponatremia Metabolic Acidosis Plan: Pain control IV Fluids Bowel Rest Insulin GTT Ultrasound-RUQ pancreatitis: CT abdomen with mild edema c/w pancreatitis (or duodenitis). IVF, pain control, bowel rest. Treat underlying severe hyperTG as below. Trend lipase- initial 485 - hypertriglyceridemia: markedly elevated. Lab reading 4642 and reported to be grossly lipemic. Will start insulin gtt at fixed rate, add glucose when needed (was 327 on BMP). - CHLOE: likely prerenal. IVF ongoing. Monitor renal function and UOP. - hyperkalemia: K reported to be 7.8 on BMP at 1630. Thought to be falsely elevated due to hyperTG and hemolysis of the sample. Will repeat at 0100. Starting on insulin gtt which should help. - hyponatremia: Na 121. Goal correction 6-8 meq/dL over first 24hrs. NS is running now and bolus already given. Will await 0100 BMP (2 hrs) and adjust fluids accordingly. If K normal, will change to LR. If Na incrementing too quickly, will change to 1/2NS. - metabolic acidosis: Noted to be similar on prior admits, likely secondary to t he pancreatitis. Will repeat chem at 0100, VBG for further eval. Will send ketones and lactic as well. Admission Diagnosis Admission Status: Inpatient Order (span 2 midnights) ROSALINDA KIRBY DO 09/01/23 0447: History of Present Illness History of Present Illness Reason for visit/HPI Chief complaint: Pancreatitis from hypertriglyceridemia HPI: This is a 38-year-old male who presented for abdominal pain found to have recurrent pancreatitis from hypertriglyceridemia. Insulin drip initiated to help electrolyte abnormalities with hyperglycemia and help triglycerides. Allergies and Home Medications Allergies Coded Allergies: No Known Drug Allergies (Unverified , 11/08/19) Patient Home Medication List Acetaminophen (Tylenol Extra Strength) 500 Mg Tablet, 1,000 MG PO Q6H Prescribed by: CRISTO GLASS on 07/06/22 1631 Glipizide (Glipizide) 10 Mg Tablet, 10 MG PO BIDAC Prescribed by: ROSALINDA KIRBY on 12/03/21 1047 Hydrocodone Bit/Acetaminophen (HYDROcodone/APAP 7.5/325 TAB) 1 Ea Tablet, 1 EA PO Q6HR PRN for PAIN-MODERATE (5-7) Prescribed by: JAZLYN SHORE on 06/11/23 1406 Lisinopril (Lisinopril) 2.5 Mg Tablet, 2.5 MG PO DAILY Prescribed by: ROSALINDA KIRBY on 12/03/21 1047 Metformin HCl (Metformin HCl) 1,000 Mg Tablet, 1,000 MG PO BIDAC Prescribed by: ROSALINDA KIRBY on 12/03/21 1047 Ondansetron (Ondansetron Odt) 4 Mg Tab.rapdis, 4 MG PO Q6H Prescribed by: ROSALINDA KIRBY on 12/03/21 1047 Ondansetron (Ondansetron Odt) 4 Mg Tab.rapdis, 4 MG PO Q6H PRN for NAUSEA/VOMITING-1ST LINE Prescribed by: CRISTO GLASS on 07/06/22 1631 Oxycodone HCl (Oxycodone HCl) 5 Mg Tablet, 5 MG PO Q6H PRN for PAIN-MODERATE (5- 7) Prescribed by: CRISTO GLASS on 07/06/22 1631 Pantoprazole Sodium (Protonix) 40 Mg Tablet.dr, 40 MG PO DAILY Prescribed by: ROSALINDA KIRBY on 12/03/21 1047 Pantoprazole Sodium (Pantoprazole Sodium) 40 Mg Tablet.dr, 40 MG PO DAILY Prescribed by: CRISTO GLASS on 07/06/22 1631 Polyethylene Glycol 3350 (Polyethylene Glycol 3350) 17 Gm Powd.pack, 17 GM PO BID Prescribed by: ROSALINDA KIRBY on 12/03/21 1047 Pravastatin Sodium (Pravastatin Sodium) 80 Mg Tablet, 80 MG PO HS Prescribed by: ROSALINDA KIRBY on 12/03/21 1047 Past Nzzchnc-Vyssso-Hcdkzf Hx Patient Social History Marrital Status: Employed/Student: unemployed Family Medical History Chronic lymphoid leukemia G8 SISTER, Onset:Adolescence Review of Systems Constitutional: see HPI Physical Exam General Appearance: No Apparent Distress, WD/WN Respiratory: Lungs Clear, Normal Breath Sounds Cardiovascular: Regular Rate, Rhythm Assessment/Plan Assessment and Plan Pain control Insulin drip Appreciate eICU Abdominal ultrasound General surgery consultation appreciated Admission Diagnosis Admission Status: Inpatient Order (span 2 midnights) Reason for Inpatient Admission: Pancreatitis Supervisory-Addendum Brief Verification & Attestation Participated in pt care: history, MDM, physical Personally performed: exam, history, MDM, supervision of care Care discussed with: Medical Student Procedures: n/a Results interpretation: Verified all documentation Verification and Attestation of Medical Student E/M Service A medical student performed and documented this service in my presence. I reviewed and verified all information documented by the medical student and made modifications to such information, when appropriate. I personally performed the physical exam and medical decision making. Rosalinda Kirby, Sep 01, 2023,04:47 JEREMIE CHAVARRIA Aug 31, 2023 11:56 ROSALINDA KIRBY DO Sep 01, 2023 04:47
--- NOTE | 2023-08-31 12:02 | Diagnostic Imaging Report ---
PROCEDURE: US Abdomen, limited. TECHNIQUE: Multiple realtime grayscale images were obtained over the abdomen in various projections. INDICATION: Pancreatitis. FINDINGS: Liver is enlarged at 21 cm. Liver does show diffuse increased echogenicity, consistent with hepatic steatosis. There is a 16 mm cyst in the right lobe of the liver. No other liver masses are identified. Gallbladder is without stones or sludge. No wall thickening or biliary ductal dilatation is identified. Visualized pancreas is unremarkable. Aorta is nonaneurysmal. IVC is patent. Right kidney is without calculi or hydronephrosis. There is no ascites. IMPRESSION: 1. Hepatomegaly and hepatic steatosis with small hepatic cysts. 2. No evidence of cholelithiasis or acute cholecystitis. Dictated by: Dictated on workstation # [id number]
[2023-08-31 13:39] LABS: CALCIUM 8.3 MG/DL (8.5-10.1); CREATININE SERUM 0.87 MG/DL (0.60-1.30)
[2023-08-31 16:54] LABS: POTASSIUM 6.6 MMOL/L (3.6-5.0)
[2023-08-31 16:55] LABS: POTASSIUM 3.7 MMOL/L (3.6-5.0)
[2023-08-31] MEDS: inSUlin DETERMIR 1 UNIT/0.01 ML (CHARGE PER UNIT) SQ SCH ×2 (17:10→21:22)
[2023-08-31] MEDS ORDERED: HYDROmorphone INJECTION 2 MG/ML VIAL IV PRN (20:15)
[2023-08-31] MEDS: ENOXAPARIN 40 MG/0.4 ML SYRINGE SC SCH (21:48)
[2023-09-01] VITALS (16 sets, daily range): BP systolic 104–127; BP diastolic 67–93
[2023-09-01] MEDS: HYDROmorphone INJECTION 2 MG/ML VIAL IV PRN ×4 (01:53→10:43)
[2023-09-01] MEDS: DEXTROSE 10% IV 1,000 ML 1,000 ML IV SCH (04:10)
[2023-09-01 05:00] LABS: ALBUMIN 3.4 GM/DL (3.2-4.5); MEAN CORPUSCULAR HEMOGLOBIN 26 pg (25-34)
[2023-09-01 05:01] LABS: POTASSIUM 3.2 MMOL/L (3.6-5.0)
[2023-09-01 05:02] LABS: BASOPHILS # (AUTO) 0.1 10^3/uL (0.0-0.1); BASOPHILS % (AUTO) 1 % (0-10); CALCIUM 8.5 MG/DL (8.5-10.1); EOSINOPHILS # (AUTO) 0.1 10^3/uL (0.0-0.3); EOSINOPHILS % (AUTO) 1 % (0-10); HEMATOCRIT 47 % (40-54); HEMOGLOBIN 15.8 g/dL (13.3-17.7); LYMPHOCYTES # (AUTO) 1.4 10^3/uL (1.0-4.0); LYMPHOCYTES % (AUTO) 15 % (12-44); MEAN CORPUSCULAR HGB CONC 34 g/dL (32-36); MEAN CORPUSCULAR VOLUME 76 fL (80-99); MEAN PLATELET VOLUME 11.1 fL (9.0-12.2); MONOCYTES # (AUTO) 0.7 10^3/uL (0.0-1.0); MONOCYTES % (AUTO) 7 % (0-12); NEUTROPHILS # (AUTO) 6.9 10^3/uL (1.8-7.8); NEUTROPHILS % (AUTO) 74 % (42-75); PLATELET COUNT 87 10^3/uL (130-400); WHITE BLOOD COUNT 9.2 10^3/uL (4.3-11.0)
[2023-09-01 05:03] LABS: TOTAL PROTEIN 6.6 GM/DL (6.4-8.2)
[2023-09-01 05:05] LABS: BILIRUBIN,TOTAL 1.8 MG/DL (0.1-1.0)
[2023-09-01 05:07] LABS: CREATININE SERUM 0.85 MG/DL (0.60-1.30)
[2023-09-01 05:10] LABS: MAGNESIUM 1.9 MG/DL (1.6-2.4)
[2023-09-01] MEDS: MAGNESIUM 1 GM/100 ML IVPB 100 ML IV SCH (05:35)
[2023-09-01] MEDS: POTASSIUM CL 10MEQ/50ML IVPB 50 ML IV SCH ×3 (05:35→07:25)
[2023-09-01] MEDS: POTASSIUM CHLORIDE 20 MEQ TABLET PO SCH (05:35)
[2023-09-01] MEDS ORDERED: POTASSIUM CL 10MEQ/50ML IVPB 150 ML IV ONE (05:51)
[2023-09-01] MEDS ORDERED: POTASSIUM CHLORIDE 20 MEQ TABLET PO ONE ×2 (07:30→09:30)
[2023-09-01] MEDS: DOCUSATE SODIUM 100 MG CAPSULE PO SCH ×2 (08:03→20:09)
[2023-09-01] MEDS: SENNOSIDES 8.6 MG TABLET PO SCH ×2 (08:03→20:09)
[2023-09-01] MEDS: PANTOPRAZOLE INJECTION 40 MG VIAL IV SCH (08:51)
--- NOTE | 2023-09-01 09:01 | Progress Note - Surgery ---
TEDDY BALTAZAR 09/01/23 0901: Subjective Date Seen by a Provider: Sep 01, 2023 Time Seen by a Provider: 08:30 Subjective/Events-last exam Paty Hernandez is feeling a little bit better today but is still in a decent amount of pain. His pain today was around 6/10 which he said was overall decre ased from yesterday's 7/10. The Pain still located in his epigastric/LUQ and radiates to his back. He also describes a new pain in his RLQ that he rates a 4/10 at rest but when pressed, it becomes 8/10 and is sharp, and he still has some pain with urination. He also had a episode in the night were he felt feverish but he no longer feels feverish this morning. Patient also feels some more heartburn this morning. Patient states he does not have an appetite today but denies having any nausea nor vomiting today and yesterday. He has not had a bowel movement since admit. Review of Systems HEENT: Head Aches (dull ache last night. ); No Visual Changes, No Eye Pain, No Ear Pain Pulmonary: Dyspnea (due to pain with deep inspiration. ); No Cough Cardiovascular: No: Chest Pain, Palpitations Gastrointestinal: Abdominal Pain (both in the RLQ and LUQ); No: Nausea, Vomiting Genitourinary: Dysuria Focused Exam Lactate Level 08/31/23 01:00: Lactic Acid Level 1.29 Objective Exam Vital Signs Date Time Temp Pulse Resp B/P (MAP) Pulse Ox O2 Delivery O2 Flow Rate FiO2 09/01/23 08:53 95 Room Air 09/01/23 08:00 90 12 111/93 (97) 96 Room Air 09/01/23 07:00 86 14 108/81 (94) 95 Room Air 09/01/23 07:00 87 09/01/23 06:00 89 18 106/72 (83) 95 Room Air 09/01/23 05:24 37.7 09/01/23 05:00 90 15 104/67 (79) 96 Room Air 09/01/23 04:35 37.7 09/01/23 04:05 38.3 09/01/23 04:00 99 14 111/76 (88) 97 Room Air 09/01/23 04:00 38.3 09/01/23 03:00 93 12 107/69 (82) 96 Room Air 09/01/23 02:00 96 12 127/86 (100) 97 Room Air 09/01/23 01:00 90 09/01/23 01:00 90 12 117/90 (99) 95 Room Air 09/01/23 00:00 104 18 104/79 (87) 97 Room Air 09/01/23 00:00 Room Air 08/31/23 23:00 103 12 99/67 (78) 97 Room Air 08/31/23 22:00 90 22 103/85 (91) 97 Room Air 08/31/23 21:00 89 14 112/77 (89) 97 Room Air 08/31/23 20:00 Room Air 08/31/23 20:00 85 14 108/81 (90) 96 Room Air 08/31/23 20:00 36.6 08/31/23 19:00 88 08/31/23 19:00 89 15 100/77 (85) 96 Room Air 08/31/23 18:00 85 17 108/60 (76) 96 Room Air 08/31/23 17:00 90 16 103/61 (75) 97 Room Air 08/31/23 16:00 36.3 08/31/23 16:00 87 15 114/70 (85) 96 Room Air 08/31/23 15:45 Room Air 08/31/23 15:00 87 15 111/83 (92) 94 Room Air 08/31/23 14:00 92 16 110/65 (80) 96 Room Air 08/31/23 13:00 78 16 112/73 (86) 96 Room Air 08/31/23 12:29 78 08/31/23 12:00 36.6 08/31/23 12:00 79 10 113/70 (84) 97 Room Air 08/31/23 12:00 97 Room Air 08/31/23 11:00 71 14 105/71 (82) 97 Room Air 08/31/23 10:00 88 15 114/66 (82) 97 Room Air 08/31/23 09:00 73 10 120/90 (100) 94 Room Air I & O 09/01/23 07:00 Intake Total 400 ml Output Total 3200 ml Balance -2800 ml Capillary Refill : General Appearance: Mild Distress HEENT: Moist Mucous Membranes; No Pharyngeal Erythema Neck: Supple Respiratory: Normal Breath Sounds, No Accessory Muscle Use Cardiovascular: No Edema, No Murmur, Tachycardia Peripheral Pulses: 3+ Radial Pulses (R), 3+ Radial Pulses (L) Gastrointestinal: normal bowel sounds, guarding, tenderness (in the LUQ and RLQ to light palpation ) Neurologic/Psychiatric: Alert Skin: Normal Color, Warm/Dry Lymphatic: No Adenopathy (supraclavicular or cervical ) Results Lab Laboratory Tests 08/31/23 09:38: Glucometer 174H 08/31/23 10:30: Glucometer 156H 08/31/23 11:36: Glucometer 150H 08/31/23 12:30: Glucometer 140H 08/31/23 13:10: Sodium Level 132L, Potassium Level 3.7, Chloride Level 95L, Carbon Dioxide Level 24, Anion Gap 13, Blood Urea Nitrogen 11, Creatinine 0.87, Estimat Glomerular Filtration Rate 113, BUN/Creatinine Ratio 13, Glucose Level 84, Calcium Level 8.3L, Triglycerides Level 1338H, Lipase 234H 08/31/23 13:37: Glucometer 108 08/31/23 14:26: Glucometer 128H 08/31/23 15:36: Glucometer 121H 08/31/23 16:42: Glucometer 128H 08/31/23 17:31: Glucometer 124H 08/31/23 18:28: Glucometer 118H 08/31/23 19:30: Urine Ketones NEGATIVE 08/31/23 19:42: Glucometer 107 08/31/23 20:41: Glucometer 121H 08/31/23 21:18: Glucometer 107 08/31/23 22:33: Glucometer 128H 08/31/23 23:44: Glucometer 130H 09/01/23 00:37: Glucometer 143H 09/01/23 01:42: Glucometer 116H 09/01/23 02:45: Glucometer 118H 09/01/23 03:54: Glucometer 141H 09/01/23 04:38: Glucometer 96 09/01/23 04:39: White Blood Count 9.2, Red Blood Count 6.14H, Hemoglobin 15.8, Hematocrit 47, Mean Corpuscular Volume 76L, Mean Corpuscular Hemoglobin 26, Mean Corpuscular Hemoglobin Concent 34, Red Cell Distribution Width 14.0, Platelet Count 87L, Mean Platelet Volume 11.1, Immature Granulocyte % (Auto) 1, Neutrophils (%) (Auto) 74, Lymphocytes (%) (Auto) 15, Monocytes (%) (Auto) 7, Eosinophils (%) (Auto) 1, Basophils (%) (Auto) 1, Neutrophils # (Auto) 6.9, Lymphocytes # (Auto) 1.4, Monocytes # (Auto) 0.7, Eosinophils # (Auto) 0.1, Basophils # (Auto) 0.1, Immature Granulocyte # (Auto) 0.1, Percent Immature Platelet Fraction 7.7H, Sodium Level 130L, Potassium Level 3.2L, Chloride Level 95L, Carbon Dioxide Level 25, Anion Gap 10, Blood Urea Nitrogen 7, Creatinine 0.85, Estimat Glomerular Filtration Rate 113, BUN/Creatinine Ratio 8, Glucose Level 91, Calcium Level 8.5, Corrected Calcium 9.0, Magnesium Level 1.9, Total Bilirubin 1.8H, Aspartate Amino Transf (AST/SGOT) 24, Alanine Aminotransferase (ALT/SGPT) 30, Alkaline Phosphatase 54, Total Protein 6.6, Albumin 3.4, Triglycerides Level 339H, Amylase Level 160H 09/01/23 06:17: Glucometer 157H Assessment/Plan Assessment/Plan Assessment/Plan Pancreatitis likely due to hypertriglyceridemia Abdominal Pain GERD Plan Continue IV Pantoprazol Continue PRN pain medication maintain NPO status ARBEN SORENSON DO 09/01/23 1143: Subjective Time Seen by a Provider: 10:12 Subjective/Events-last exam Pt seen and examined, states he is feeling better but still has some abdominal pain. Reports the pain is less than yesterday Review of Systems HEENT: Head Aches (dull ache last night. ) Pulmonary: Dyspnea (due to pain with deep inspiration. ); No Cough Cardiovascular: No: Chest Pain, Palpitations Gastrointestinal: Abdominal Pain (both in the RLQ and LUQ); No: Nausea, Vomiting Genitourinary: Dysuria Objective Exam General Appearance: Mild Distress, Obese HEENT: Moist Mucous Membranes Respiratory: Lungs Clear, Normal Breath Sounds, No Accessory Muscle Use, No Respiratory Distress Cardiovascular: No Murmur, Tachycardia Gastrointestinal: soft, guarding (voluntary), tenderness (in the LUQ and RLQ to light palpation ) Neurologic/Psychiatric: Alert Skin: Normal Color, Warm/Dry Assessment/Plan Assessment/Plan Assessment/Plan Pancreatitis likely due to hypertriglyceridemia Abdominal Pain GERD Continue IV Pantoprazol, Continue PRN pain medication, ok to start clears and K+ supplementation and would also start LR at 150ml. Stop Insulin drip Supervisory-Addendum Brief Verification & Attestation Participated in pt care: history, MDM, physical Personally performed: exam, history, MDM, supervision of care Care discussed with: Medical Student Procedures: n/a Verification and Attestation of Medical Student E/M Service A medical student performed and documented this service. I then reviewed and verified all information documented by the medical student and made modifications to such information, when appropriate. I personally performed a physical exam, medical decision making and then discussed any differences between the notes and made revisions as necessary to create one note. Arben Sorenosn , 09/01/23 , 11:43 TEDDY BALTAZAR Sep 01, 2023 09:01 ARBEN SORENSON DO Sep 01, 2023 11:43
--- NOTE | 2023-09-01 09:10 | Progress Note - Hospitalist ---
JEREMIE CHAVARRIA 09/01/23 0910: Subjective HPI/CC On Admission Date Seen by Provider: Sep 01, 2023 Time Seen by Provider: 09:08 This is a 38 year old with T2D who presented to the ED for chest pain and abdominal pain. Patient was found to have acute appendicitis secondary to hypertrigylceridemia. Patient reports feeling decreased pain today, however, it is still a 7/10. Patient reports the most pain in his right side- both RUQ and RLQ. Patient presented with guarding upon palpation. He did have a fever last night which he also reported with a cough. Cough made his pain worse. Patient denies any shortness of breath, fever, or chest pain currently. Patient's will be visiting later. Focused Exam Sepsis Stage: Ruled Out Lactate Level 08/31/23 01:00: Lactic Acid Level 1.29 Objective Exam Vital Signs Vital Signs Date Time Temp Pulse Resp B/P (MAP) Pulse Ox O2 Delivery O2 Flow Rate FiO2 09/01/23 12:00 96 14 126/87 (104) 92 Room Air 09/01/23 08:55 37.6 Capillary Refill : General Appearance: Mild Distress HEENT: TMs Normal, Normal ENT Inspection Neck: Full Range of Motion, Normal Inspection Respiratory: Lungs Clear, No Accessory Muscle Use Cardiovascular: Regular Rate, Rhythm, No Edema Gastrointestinal: No Pulsatile Mass, Tenderness (right sided tenderness) Extremity: Normal Capillary Refill, Normal Inspection, Normal Range of Motion Neurologic/Psychiatric: Alert, Oriented x3, Normal Mood/Affect Skin: Normal Color, Warm/Dry Results/Procedures Lab Laboratory Tests 08/31/23 13:10 09/01/23 04:39 Patient resulted labs reviewed. Assessment/Plan Assessment and Plan Assess & Plan/Chief Complaint Assessment: Acute Pancreatitis Hypertriglyceridemia Pre-Renal CHLOE Plan: Pain control IV Fluids Advance diet Encourage patient ambulation Clinical Quality Measures Admission Status Admission Dx Assessment: Acute Pancreatitis Hypertriglyceridemia Pre-Renal CHLOE Hyperkalemia Hyponatremia Metabolic Acidosis Plan: Pain control IV Fluids Bowel Rest Insulin GTT Ultrasound-RUQ pancreatitis: CT abdomen with mild edema c/w pancreatitis (or duodenitis). IVF, pain control, bowel rest. Treat underlying severe hyperTG as below. Trend lipase- initial 485 - hypertriglyceridemia: markedly elevated. Lab reading 4642 and reported to be grossly lipemic. Will start insulin gtt at fixed rate, add glucose when needed (was 327 on BMP). - CHLOE: likely prerenal. IVF ongoing. Monitor renal function and UOP. - hyperkalemia: K reported to be 7.8 on BMP at 1630. Thought to be falsely elevated due to hyperTG and hemolysis of the sample. Will repeat at 0100. Starting on insulin gtt which should help. - hyponatremia: Na 121. Goal correction 6-8 meq/dL over first 24hrs. NS is running now and bolus already given. Will await 0100 BMP (2 hrs) and adjust fluids accordingly. If K normal, will change to LR. If Na incrementing too q uickly, will change to 1/2NS. - metabolic acidosis: Noted to be similar on prior admits, likely secondary to the pancreatitis. Will repeat chem at 0100, VBG for further eval. Will send ketones and lactic as well. ROSALINDA KIRBY DO 09/01/23 1820: Subjective Subjective/Events-last exam Much improved Insulin drip DC TG improved Objective Exam General Appearance: No Apparent Distress, WD/WN, Chronically ill Respiratory: Lungs Clear Cardiovascular: Regular Rate, Rhythm Assessment/Plan Assessment and Plan Assess & Plan/Chief Complaint Insulin SQ Move to 4th floor Supervisory-Addendum Brief Verification & Attestation Participated in pt care: history, MDM, physical Personally performed: exam, history, MDM, supervision of care Care discussed with: Medical Student Procedures: n/a Results interpretation: Verified all documentation Verification and Attestation of Medical Student E/M Service A medical student performed and documented this service in my presence. I reviewed and verified all information documented by the medical student and made modifications to such information, when appropriate. I personally performed the physical exam and medical decision making. Rosalinda Kirby, Sep 01, 2023,18:19 JEREMIE CHAVARRIA Sep 01, 2023 09:10 ROSALINDA KIRBY DO Sep 01, 2023 18:20
--- NOTE | 2023-09-01 09:57 | Tele-ICU Progress Note ---
Subjective Date Seen by a Provider: Sep 01, 2023 Time Seen by a Provider: 09:57 Subjective/Events-last exam (Tele-ICU Physician , Progress Note ) Service provided via interactive audio and video telecommunications E-CARE system to a patient admitted to ICU bed in [facility]. Patient is seen today due to persistent need of ICU care Available chart/ vitals / labs / Images reviewed Video assessment done using teleICU camera, rest of exam as per RN Discussed with RN Events overnight : Afebrile hemodynamically stable Pressors- no Hospital course: (08/30) 38 Y/O Male with Pancreatitis secondary to Triglyceridemia. Insulin drip started. 09/01 - off insulin gtt A/P Pancreatic triglyceride induced -CT abdomen with mild edema c/w pancreatitis (or duodenitis). -- hydration - Insulin gtt OFF since TG below 500 mg/dL -monitor for hypocalcemia, lactic acidosis, follow WBC -pain control - keep on severely restricted dietary fat diet Hypertriglyceridemia- on admission 4642 - improve , po meds as per PCP CHLOE resolved Hyperkalemia -resolved Pseudohyponatremia: Na 121 - with elevated TGL of 4.6K expexted pseudo hyponatremia ( about 10 mEqg/L ) - follow closely - improved Metabolic acidosis: Noted to be similar on prior admits, likely secondary to the pancreatitis Lines : periph , (Central Line Necessity Reviewed) Pappas: void OG: Nutrition: Analgesia: Anxiety/ delirium VTE Prophylaxis: christiana Stress Ulcer Prophylaxis: na Plans in collaboration with bedside consultants and IM MDs. Discussed with RN to reach out if any questions or concerns Case and care daily discussed on multidisciplinary rounds ( RN, PharmD, Galvanizing Pot Runner , Respiratory Therapy, mesh worker ) A total of 25 minutes of critical care time was devoted to this patient today, required to treat and/or prevent further deterioration of critical care condition ( as above ) . I am remotely monitoring this patient from another state. I am unable to do the bedside exam, and history/physical and pertinent information is taken from other notes in the computer and bedside staff. Sepsis Event Evaluation Height, Weight, BMI Height: '" Weight: lbs. oz. kg; 30.93 BMI Method: Focused Exam Lactate Level 08/31/23 01:00: Lactic Acid Level 1.29 Exam Exam Patient acknowledged, consented, and participated in this virtual visit which was conducted using real time audio/video Vital Signs Date Time Temp Pulse Resp B/P (MAP) Pulse Ox O2 Delivery O2 Flow Rate FiO2 09/01/23 09:00 102 13 111/69 (85) 95 Room Air 09/01/23 08:55 37.6 09/01/23 08:53 95 Room Air 09/01/23 08:00 90 12 111/93 (97) 96 Room Air 09/01/23 07:00 86 14 108/81 (94) 95 Room Air 09/01/23 07:00 87 09/01/23 06:00 89 18 106/72 (83) 95 Room Air 09/01/23 05:24 37.7 09/01/23 05:00 90 15 104/67 (79) 96 Room Air 09/01/23 04:35 37.7 09/01/23 04:05 38.3 09/01/23 04:00 99 14 111/76 (88) 97 Room Air 09/01/23 04:00 38.3 09/01/23 03:00 93 12 107/69 (82) 96 Room Air 09/01/23 02:00 96 12 127/86 (100) 97 Room Air 09/01/23 01:00 90 09/01/23 01:00 90 12 117/90 (99) 95 Room Air 09/01/23 00:00 104 18 104/79 (87) 97 Room Air 09/01/23 00:00 Room Air 08/31/23 23:00 103 12 99/67 (78) 97 Room Air 08/31/23 22:00 90 22 103/85 (91) 97 Room Air 08/31/23 21:00 89 14 112/77 (89) 97 Room Air 08/31/23 20:00 Room Air 08/31/23 20:00 85 14 108/81 (90) 96 Room Air 08/31/23 20:00 36.6 08/31/23 19:00 88 08/31/23 19:00 89 15 100/77 (85) 96 Room Air 08/31/23 18:00 85 17 108/60 (76) 96 Room Air 08/31/23 17:00 90 16 103/61 (75) 97 Room Air 08/31/23 16:00 36.3 08/31/23 16:00 87 15 114/70 (85) 96 Room Air 08/31/23 15:45 Room Air 08/31/23 15:00 87 15 111/83 (92) 94 Room Air 08/31/23 14:00 92 16 110/65 (80) 96 Room Air 08/31/23 13:00 78 16 112/73 (86) 96 Room Air 08/31/23 12:29 78 08/31/23 12:00 36.6 08/31/23 12:00 79 10 113/70 (84) 97 Room Air 08/31/23 12:00 97 Room Air 08/31/23 11:00 71 14 105/71 (82) 97 Room Air 08/31/23 10:00 88 15 114/66 (82) 97 Room Air I & O 09/01/23 07:00 Intake Total 400 ml Output Total 3200 ml Balance -2800 ml Height & Weight Height: '" Weight: lbs. oz. kg; 30.93 BMI Method: General Appearance: Mild Distress HEENT: TMs Normal, Normal ENT Inspection Neck: Full Range of Motion, Normal Inspection Respiratory: Lungs Clear, No Accessory Muscle Use Cardiovascular: Regular Rate, Rhythm, No Edema Peripheral Pulses: 3+ Radial Pulses (R), 3+ Radial Pulses (L) Gastrointestinal: normal bowel sounds, guarding, tenderness (in the LUQ and RLQ to light palpation ) Extremity: Normal Capillary Refill, Normal Inspection, Normal Range of Motion Neurologic/Psychiatric: Alert, Oriented x3, Normal Mood/Affect Skin: Normal Color, Warm/Dry Lymphatic: No Adenopathy (supraclavicular or cervical ) Results Lab Laboratory Tests 08/30/23 18:39 08/31/23 01:00 08/31/23 04:25 08/31/23 06:55 08/31/23 13:10 09/01/23 04:39 Assessment/Plan Assessment/Plan 1 TAMIE DELGADO MD Sep 01, 2023 09:57
[2023-09-01] MEDS ORDERED: LACTATED RINGERS 1,000 ML 1,000 ML IV ONE (10:16)
[2023-09-01] MEDS ORDERED: LACTATED RINGERS 1,000 ML 1,000 ML IV SCH (10:30)
[2023-09-01] MEDS ORDERED: inSUlin ASPART 1 UNIT/0.01 ML (PER UNIT) SC SCH (11:00)
[2023-09-01] MEDS: oxyCODONE IMMEDIATE RELEASE 5 MG TABLET PO PRN ×2 (15:13→20:47)
[2023-09-01] MEDS: inSUlin ASPART 1 UNIT/0.01 ML (PER UNIT) SC SCH ×2 (16:13→20:45)
[2023-09-01] MEDS: inSUlin DETERMIR 1 UNIT/0.01 ML (CHARGE PER UNIT) SQ SCH (20:45)
[2023-09-01] MEDS: ENOXAPARIN 40 MG/0.4 ML SYRINGE SC SCH (20:46)
[2023-09-02 03:57] VITALS: BP 101/62
[2023-09-02] MEDS: inSUlin ASPART 1 UNIT/0.01 ML (PER UNIT) SC SCH ×4 (05:44→19:58)
[2023-09-02] MEDS: oxyCODONE IMMEDIATE RELEASE 5 MG TABLET PO PRN (05:44)
[2023-09-02 05:53] LABS: BASOPHILS % (AUTO) 0 % (0-10); EOSINOPHILS # (AUTO) 0.1 10^3/uL (0.0-0.3); EOSINOPHILS % (AUTO) 1 % (0-10); LYMPHOCYTES # (AUTO) 1.1 10^3/uL (1.0-4.0); LYMPHOCYTES % (AUTO) 13 % (12-44); MEAN CORPUSCULAR HEMOGLOBIN 26 pg (25-34); MEAN CORPUSCULAR HGB CONC 33 g/dL (32-36); MEAN CORPUSCULAR VOLUME 78 fL (80-99); MONOCYTES % (AUTO) 10 % (0-12); NEUTROPHILS % (AUTO) 75 % (42-75)
[2023-09-02 05:55] LABS: HEMATOCRIT 46 % (40-54); HEMOGLOBIN 15.3 g/dL (13.3-17.7); MEAN PLATELET VOLUME 10.7 fL (9.0-12.2); MONOCYTES # (AUTO) 0.9 10^3/uL (0.0-1.0); NEUTROPHILS # (AUTO) 6.6 10^3/uL (1.8-7.8); PLATELET COUNT 93 10^3/uL (130-400); WHITE BLOOD COUNT 8.8 10^3/uL (4.3-11.0)
[2023-09-02 06:04] LABS: ALBUMIN 3.3 GM/DL (3.2-4.5)
[2023-09-02 06:05] LABS: CALCIUM 8.8 MG/DL (8.5-10.1)
[2023-09-02 06:06] LABS: TOTAL PROTEIN 6.6 GM/DL (6.4-8.2)
[2023-09-02 06:08] LABS: BILIRUBIN,TOTAL 1.6 MG/DL (0.1-1.0)
[2023-09-02 06:10] LABS: CREATININE SERUM 0.88 MG/DL (0.60-1.30)
[2023-09-02 07:45] VITALS: BP 106/66
[2023-09-02] MEDS: PANTOPRAZOLE INJECTION 40 MG VIAL IV SCH (08:27)
[2023-09-02] MEDS: SENNOSIDES 8.6 MG TABLET PO SCH ×2 (08:27→19:59)
[2023-09-02] MEDS: HYDROmorphone INJECTION 2 MG/ML VIAL IV PRN ×3 (08:28→20:05)
[2023-09-02] MEDS: DOCUSATE SODIUM 100 MG CAPSULE PO SCH ×2 (08:29→19:59)
[2023-09-02 08:40] VITALS: BP 106/66
[2023-09-02] MEDS ORDERED: RT-ALBUTEROL SULF 2.5 MG/3 ML PRE-MIX VIAL INH PRN (08:45)
[2023-09-02] MEDS: inSUlin DETERMIR 1 UNIT/0.01 ML (CHARGE PER UNIT) SQ SCH ×2 (09:00→19:58)
--- NOTE | 2023-09-02 09:13 | Progress Note - Surgery ---
TEDDY BALTAZAR 09/02/2313: Subjective Date Seen by a Provider: Sep 02, 2023 Time Seen by a Provider: 09:45 Subjective/Events-last exam Patient is feeling good this morning and feels like his LUQ pain is significantly decreased and at rest he doesn't have any pain at all. He does have some new pain that he says is really sever 10/10 sharp stabbing pain in his RLQ and has even caused him to be nauseous, dizzy and caused him to dry heave but did not vomit. He also has some burning with urination that has not decreased in severity. He is has been able to drink water and eat clear foods with only some minor discomfort in his LUQ but has not had any nausea or vomiting associated with eating. He was able to have 2 bowel moments yesterday that were yellow in appearance with lots of oily like suspension in the toilet. He denies any burning in his esophagus/ stomach today. Review of Systems General: No Chills, No Night Sweats, No Fatigue HEENT: Head Aches; No Eye Pain, No Ear Pain Pulmonary: No Dyspnea, No Cough Cardiovascular: No: Chest Pain, Palpitations Gastrointestinal: Nausea, Vomiting, Abdominal Pain Genitourinary: Dysuria Focused Exam Lactate Level 08/31/23 01:00: Lactic Acid Level 1.29 Objective Exam Vital Signs Date Time Temp Pulse Resp B/P (MAP) Pulse Ox O2 Delivery O2 Flow Rate FiO2 09/02/23 08:40 36.4 96 94 21 09/02/23 08:35 94 Room Air 0.00 09/02/23 07:45 36.4 93 20 106/66 (79) 95 Room Air 09/02/23 03:57 36.6 96 16 101/62 (75) 95 Room Air 09/01/23 23:43 37.3 103 16 118/74 (89) 97 Room Air 09/01/23 20:00 Room Air 09/01/23 19:18 Room Air 09/01/23 19:00 37.5 104 16 109/69 (82) 96 Room Air 09/01/23 16:00 95 Room Air 09/01/23 15:25 36.8 105 18 121/73 (89) 94 Room Air 09/01/23 12:00 95 Room Air 09/01/23 12:00 96 14 126/87 (104) 92 Room Air 09/01/23 12:00 37.4 09/01/23 11:00 93 10 122/92 (101) 94 Room Air 09/01/23 10:00 98 14 124/89 (98) 95 Room Air I & O 09/02/23 07:00 Intake Total 2645 ml Output Total 1600 ml Balance 1045 ml Capillary Refill : General Appearance: No Apparent Distress (no distress when laying still but did have visible discomfort with movment), WD/WN HEENT: PERRL/EOMI, Moist Mucous Membranes; No Pharyngeal Erythema Neck: Non Tender, Supple Respiratory: Lungs Clear, Normal Breath Sounds, No Accessory Muscle Use Cardiovascular: Regular Rate, Rhythm, No Edema, No Murmur Peripheral Pulses: 3+ Radial Pulses (R), 3+ Radial Pulses (L) Gastrointestinal: normal bowel sounds, guarding (with palpation of the RLQ), tenderness (some tenderness to palpation in the LUQ but significant tenderness in the RLQ/suprapubic area. ) Neurologic/Psychiatric: Alert Skin: Normal Color, Warm/Dry Lymphatic: No Adenopathy (Cervical or Supraclavicular ) Results Lab Laboratory Tests 09/01/23 10:44: Glucometer 185H 09/01/23 15:22: Glucometer 189H 09/01/23 20:25: Glucometer 226H 09/02/23 05:38: Glucometer 195H 09/02/23 05:43: White Blood Count 8.8, Red Blood Count 5.95H, Hemoglobin 15.3, Hematocrit 46, Mean Corpuscular Volume 78L, Mean Corpuscular Hemoglobin 26, Mean Corpuscular Hemoglobin Concent 33, Red Cell Distribution Width 14.1, Platelet Count 93L, Mean Platelet Volume 10.7, Immature Granulocyte % (Auto) 1, Neutrophils (%) (Auto) 75, Lymphocytes (%) (Auto) 13, Monocytes (%) (Auto) 10, Eosinophils (%) (Auto) 1, Basophils (%) (Auto) 0, Neutrophils # (Auto) 6.6, Lymphocytes # (Auto) 1.1, Monocytes # (Auto) 0.9, Eosinophils # (Auto) 0.1, Basophils # (Auto) 0.0, Immature Granulocyte # (Auto) 0.1, Percent Immature Platelet Fraction 5.8, Sodium Level 130L, Potassium Level 4.0, Chloride Level 100, Carbon Dioxide Level 19L, Anion Gap 11, Blood Urea Nitrogen 12, Creatinine 0.88, Estimat Glomerular Filtration Rate 112, BUN/Creatinine Ratio 14, Glucose Level 175H, Calcium Level 8.8, Corrected Calcium 9.4, Magnesium Level 2.0, Total Bilirubin 1.6H, Aspartate Amino Transf (AST/SGOT) 21, Alanine Aminotransferase (ALT/SGPT) 25, Alkaline Phosphatase 51, Total Protein 6.6, Albumin 3.3 Assessment/Plan Assessment/Plan Assessment/Plan Pancreatitis likely due to hypertriglyceridemia Abdominal Pain of LUQ (improving) New RLQ abdominal/suprapubic Pain Plan Continue IV Pantoprazol, Continue PRN pain medication Continue Clear diet Get UA and bladder scan ARBEN SORENSON DO 09/02/23 1255: Subjective Time Seen by a Provider: 10:26 Subjective/Events-last exam Pt seen and examined, now complaining of RLQ pain. He is able to drink liquids and tolerating clears; they were hurting him yesterday. Review of Systems General: No Chills, No Night Sweats Pulmonary: No Dyspnea, No Cough Cardiovascular: No: Chest Pain, Palpitations Gastrointestinal: Nausea, Vomiting, Abdominal Pain Genitourinary: Dysuria Objective Exam General Appearance: No Apparent Distress (no distress when laying still but did have visible discomfort with movment), WD/WN HEENT: PERRL/EOMI, Moist Mucous Membranes Respiratory: Lungs Clear, Normal Breath Sounds, No Accessory Muscle Use, No Respiratory Distress Cardiovascular: Regular Rate, Rhythm, No Murmur Gastrointestinal: normal bowel sounds, soft, guarding (with palpation of the RLQ), tenderness (some tenderness to palpation in the LUQ but significant tenderness in the RLQ/suprapubic area. ) Neurologic/Psychiatric: Alert Skin: Normal Color, Warm/Dry Assessment/Plan Assessment/Plan Assessment/Plan Pancreatitis likely due to hypertriglyceridemia Abdominal Pain of LUQ (improving) New RLQ abdominal/suprapubic Pain Plan Continue IV Pantoprazol, Continue PRN pain medication Continue Clear diet UA negative for Bacteria and no culture needed. Bladder scan did not show urinary retention. Supervisory-Addendum Brief Verification & Attestation Participated in pt care: history, MDM, physical Personally performed: exam, history, MDM, supervision of care Care discussed with: Medical Student Procedures: n/a Verification and Attestation of Medical Student E/M Service A medical student performed and documented this service. I then reviewed and verified all information documented by the medical student and made modifications to such information, when appropriate. I personally performed a physical exam, medical decision making and then discussed any differences between the notes and made revisions as necessary to create one note. Arben Sorenson , 09/02/23 , 12:55 TEDDY BALTAZAR Sep 02, 2023 09:13 ARBEN SORENSON DO Sep 02, 2023 12:55
--- NOTE | 2023-09-02 10:33 | Progress Note ---
RODERICK ALAN MD,RESIDENT 09/02/23 1033: Subjective HPI/CC On Admission This is a 38 year old with T2D who presented to the ED for chest pain and abdo geeta pain. Patient was found to have acute appendicitis secondary to hypertrigylceridemia. Patient reports feeling decreased pain today, however, it is still a 7/10. Patient reports the most pain in his right side- both RUQ and RLQ. Patient presented with guarding upon palpation. He did have a fever last night which he also reported with a cough. Cough made his pain worse. Patient denies any shortness of breath, fever, or chest pain currently. Patient's will be visiting later. Subjective/Events-last exam Pt reports laying down helps his abdominal pain. Today he complains of right, lower flank pain and well as burning with urination. He says he has tried some food, but taking it easy d/t pain. He denies fevers, N/V/D. Focused Exam Lactate Level 08/31/23 01:00: Lactic Acid Level 1.29 Objective Exam Vital Signs Vital Signs Date Time Temp Pulse Resp B/P (MAP) Pulse Ox O2 Delivery O2 Flow Rate FiO2 09/02/23 09:00 94 Room Air 0.00 09/02/23 08:40 36.4 96 21 09/02/23 07:45 20 106/66 (79) Capillary Refill : General Appearance: No Apparent Distress Neck: Full Range of Motion Respiratory: Lungs Clear, Normal Breath Sounds, No Accessory Muscle Use, No Respiratory Distress Cardiovascular: Regular Rate, Rhythm Gastrointestinal: Distended, Tenderness (Severe pain to palpation in right groin space) Extremity: Non Tender Neurologic/Psychiatric: Alert, Oriented x3, Normal Mood/Affect Skin: Warm/Dry Results/Procedures Lab Laboratory Tests 09/02/23 05:43 Patient resulted labs reviewed. Assessment/Plan Assessment and Plan Assess & Plan/Chief Complaint Pancreatitis 2/2 hypertriglyceridemia complicated by DKA Assessment: Acute Pancreatitis Hypertriglyceridemia Pre-Renal CHLOE Hyperkalemia Hyponatremia Metabolic Acidosis Plan: Pain control IV Fluids Bowel Rest Advance diet slowly UA for c/o burning with urination Diagnosis/Problems Diagnosis/Problems (1) DKA (diabetic ketoacidosis) (2) Hypertriglyceridemia Status: Chronic (3) Pancreatitis Status: Resolved Resolution Date/Time: 11/10/19 @ 11:09 (4) Non-insulin dependent diabetes mellitus Status: Acute (5) Acute abdominal pain Status: Acute (6) Hyponatremia HERSON KIRBY DO 09/03/23 0609: Subjective HPI/CC On Admission Date Seen by Provider: Sep 02, 2023 Time Seen by Provider: 11:00 Subjective/Events-last exam Patient doing a lot better Pain is still present Lab work looks better Objective Exam General Appearance: No Apparent Distress, WD/WN, Chronically ill Assessment/Plan Assessment and Plan Assess & Plan/Chief Complaint Check UA Continue pain control I personally performed the mancera portions of the visit, discussed case with resident and concur with resident documentation of history, physical exam, assessment and treatment plan unless otherwise noted. RODERICK ALAN MD,RESIDENT Sep 02, 2023 10:33 HERSON KIRBY DO Sep 03, 2023 06:09
[2023-09-02 11:25] LABS: BACTERIA,URINE NEGATIVE /HPF; BILIRUBIN,URINE NEGATIVE (NEGATIVE); CLARITY,URINE CLEAR; COLOR,URINE YELLOW; GLUCOSE, URINE (UA) 3+ (NEGATIVE); KETONES,URINE 1+ (NEGATIVE); LEUKOCYTE ESTERASE ,URINE NEGATIVE (NEGATIVE); NITRITE,URINE NEGATIVE (NEGATIVE); PROTEIN,URINE 1+ (NEGATIVE); RBC,URINE RARE /HPF; WBC,URINE 0-2 /HPF
[2023-09-02 11:26] LABS: SQUAMOUS EPITHELIAL CELL,UR RARE /HPF
[2023-09-02 11:52] VITALS: BP 121/68
[2023-09-02] MEDS: LACTATED RINGERS 1,000 ML 1,000 ML IV SCH ×2 (14:20→20:05)
[2023-09-02 15:53] VITALS: BP 109/62
[2023-09-02] MEDS ORDERED: PRAV80TA2 PO (16:49)
[2023-09-02] MEDS ORDERED: LISI2.5T13 PO (16:50)
[2023-09-02] MEDS ORDERED: CANA300T PO (16:52)
[2023-09-02] MEDS ORDERED: GLIP10TA13 PO (16:53)
[2023-09-02] MEDS ORDERED: METF-865 PO (16:55)
[2023-09-02] MEDS: ENOXAPARIN 40 MG/0.4 ML SYRINGE SC SCH (19:58)
[2023-09-02 20:11] VITALS: BP 109/63
[2023-09-03] MEDS: HYDROmorphone INJECTION 2 MG/ML VIAL IV PRN ×4 (00:22→08:21)
[2023-09-03 00:28] VITALS: BP 113/71
[2023-09-03 04:00] VITALS: BP 105/69
[2023-09-03 06:13] LABS: BASOPHILS % (AUTO) 0 % (0-10); NEUTROPHILS # (AUTO) 5.3 10^3/uL (1.8-7.8)
[2023-09-03 06:15] LABS: EOSINOPHILS # (AUTO) 0.1 10^3/uL (0.0-0.3); EOSINOPHILS % (AUTO) 2 % (0-10); HEMATOCRIT 45 % (40-54); HEMOGLOBIN 14.7 g/dL (13.3-17.7); LYMPHOCYTES # (AUTO) 1.5 10^3/uL (1.0-4.0); LYMPHOCYTES % (AUTO) 19 % (12-44); MEAN CORPUSCULAR HEMOGLOBIN 26 pg (25-34); MEAN CORPUSCULAR HGB CONC 33 g/dL (32-36); MEAN CORPUSCULAR VOLUME 78 fL (80-99); MEAN PLATELET VOLUME 11.4 fL (9.0-12.2); MONOCYTES # (AUTO) 0.8 10^3/uL (0.0-1.0); MONOCYTES % (AUTO) 10 % (0-12); NEUTROPHILS % (AUTO) 67 % (42-75); PLATELET COUNT 106 10^3/uL (130-400); WHITE BLOOD COUNT 7.9 10^3/uL (4.3-11.0)
[2023-09-03] MEDS: LACTATED RINGERS 1,000 ML 1,000 ML IV SCH (06:17)
[2023-09-03] MEDS: inSUlin ASPART 1 UNIT/0.01 ML (PER UNIT) SC SCH ×2 (06:17→11:50)
--- NOTE | 2023-09-03 06:20 | Progress Note - Hospitalist ---
Subjective HPI/CC On Admission Date Seen by Provider: Sep 03, 2023 Time Seen by Provider: 09:00 This is a 38 year old with T2D who presented to the ED for chest pain and abdominal pain. Patient was found to have acute appendicitis secondary to hypertrigylceridemia. Patient reports feeling decreased pain today, however, it is still a 7/10. Patient reports the most pain in his right side- both RUQ and RLQ. Patient presented with guarding upon palpation. He did have a fever last night which he also reported with a cough. Cough made his pain worse. Patient denies any shortness of breath, fever, or chest pain currently. Patient's will be visiting later. Objective Exam Vital Signs Vital Signs Date Time Temp Pulse Resp B/P (MAP) Pulse Ox O2 Delivery O2 Flow Rate FiO2 09/03/23 09:01 97 Room Air 0.00 09/03/23 07:44 36.3 88 18 116/68 (84) 09/02/23 08:40 21 Capillary Refill : Results/Procedures Lab Laboratory Tests 09/03/23 05:45 Patient resulted labs reviewed. Assessment/Plan Assessment and Plan Assess & Plan/Chief Complaint Check UA Continue pain control I personally performed the mancera portions of the visit, discussed case with resident and concur with resident documentation of history, physical exam, assessment and treatment plan unless otherwise noted. Clinical Quality Measures Admission Status Admission Dx Pain control Insulin drip Appreciate eICU Abdominal ultrasound General surgery consultation appreciated HERSON KIRBY DO Sep 03, 2023 06:20
[2023-09-03 06:22] LABS: ALBUMIN 3.2 GM/DL (3.2-4.5); POTASSIUM 3.7 MMOL/L (3.6-5.0)
[2023-09-03 06:25] LABS: TOTAL PROTEIN 6.6 GM/DL (6.4-8.2)
[2023-09-03 06:26] LABS: BILIRUBIN,TOTAL 1.2 MG/DL (0.1-1.0)
[2023-09-03 06:28] LABS: CREATININE SERUM 0.81 MG/DL (0.60-1.30)
[2023-09-03 07:44] VITALS: BP 116/68
[2023-09-03] MEDS: PANTOPRAZOLE INJECTION 40 MG VIAL IV SCH (08:07)
[2023-09-03] MEDS: DOCUSATE SODIUM 100 MG CAPSULE PO SCH (08:08)
[2023-09-03] MEDS: SENNOSIDES 8.6 MG TABLET PO SCH (08:08)
[2023-09-03] MEDS: inSUlin DETERMIR 1 UNIT/0.01 ML (CHARGE PER UNIT) SQ SCH (08:13)
[2023-09-03] MEDS ORDERED: INSU100I88 SQ (10:15)
[2023-09-03] MEDS ORDERED: NEED-475 MC (10:15)
[2023-09-03] MEDS ORDERED: FENO48TA16 PO (10:15)
[2023-09-03] MEDS ORDERED: OXC5T PO (10:15)
--- NOTE | 2023-09-03 10:17 | Discharge Summary ---
Discharge Summary Hospital Course Was the Problem List Reviewed?: Yes Problems/Dx: (1) DKA (diabetic ketoacidosis) (2) Hypertriglyceridemia Status: Chronic (3) Pancreatitis Status: Resolved (4) Non-insulin dependent diabetes mellitus Status: Acute (5) Acute abdominal pain Status: Acute (6) Hyponatremia Hospital Course Date of Admission: Aug 30, 2023 at 21:42 Admission Diagnosis : Family Physician/Provider: [facility] Date of Discharge: 09/03/23 Discharge Diagnosis: [ ] Hospital Course: Lengthy hospital course after he was admitted for DKA and electrolyte abnormalities due to acute pancreatitis with hypertriglyceridemia. Insulin drip initiated to help with the triglycerides with good success. Pain was controlled. Insulin was initiated at discharge. Unsure of compliance planned. He was deemed stable for discharge. Labs and Pending Lab Test: Laboratory Tests 09/02/23 10:40: Urine Color YELLOW, Urine Clarity CLEAR, Urine pH 6.0, Urine Specific [place] 1.015L, Urine Protein 1+H, Urine Glucose (UA) 3+H, Urine Ketones 1+H, Urine Nitrite NEGATIVE, Urine Bilirubin NEGATIVE, Urine Urobilinogen >=8.0, Urine Leukocyte Esterase NEGATIVE, Urine RBC (Auto) NEGATIVE, Urine RBC RARE, Urine WBC 0-2, Urine Squamous Epithelial Cells RARE, Urine Crystals NONE, Urine Bacteria NEGATIVE, Urine Casts NONE, Urine Mucus NEGATIVE, Urine Culture Indicated NO 09/02/23 11:54: Glucometer 208H 09/02/23 16:54: Glucometer 265H 09/02/23 19:47: Glucometer 203H 09/03/23 05:45: White Blood Count 7.9, Red Blood Count 5.75H, Hemoglobin 14.7, Hematocrit 45, Mean Corpuscular Volume 78L, Mean Corpuscular Hemoglobin 26, Mean Corpuscular Hemoglobin Concent 33, Red Cell Distribution Width 14.3, Platelet Count 106L, Mean Platelet Volume 11.4, Immature Granulocyte % (Auto) 1, Neutrophils (%) (Au to) 67, Lymphocytes (%) (Auto) 19, Monocytes (%) (Auto) 10, Eosinophils (%) (Auto) 2, Basophils (%) (Auto) 0, Neutrophils # (Auto) 5.3, Lymphocytes # (Auto) 1.5, Monocytes # (Auto) 0.8, Eosinophils # (Auto) 0.1, Basophils # (Auto) 0.0, Immature Granulocyte # (Auto) 0.1, Percent Immature Platelet Fraction 6.9, Sodium Level 130L, Potassium Level 3.7, Chloride Level 99, Carbon Dioxide Level 21, Anion Gap 10, Blood Urea Nitrogen 11, Creatinine 0.81, Estimat Glomerular Filtration Rate 115, BUN/Creatinine Ratio 14, Glucose Level 128H, Calcium Level 9.0, Corrected Calcium 9.6, Magnesium Level 2.0, Total Bilirubin 1.2H, Aspartate Amino Transf (AST/SGOT) 20, Alanine Aminotransferase (ALT/SGPT) 26, Alkaline Phosphatase 55, Total Protein 6.6, Albumin 3.2 09/03/23 06:13: Glucometer 122H Home Meds Active Tricor (Fenofibrate) 48 Mg Tab 48 Mg PO DAILY [place] ([place], Insulin Disposable) 31 Gauge X 3/16" Dis.needle Each MC BID Levemir Flexpen (Insulin Detemir) 100 Unit/Ml (3 Ml) Insuln.pen 15 Unit SQ BID Oxyir Tablet (Oxycodone HCl) 5 Mg Tab 5 Mg PO BID PRN Tylenol Extra Strength (Acetaminophen) 500 Mg Tablet 1,000 Mg PO Q6H 7 Days Reported Metformin HCl ER (Metformin HCl) 500 Mg Tab.er.24h 500 Mg PO BID Glipizide 10 Mg Tablet 10 Mg PO BID Invokana (Canagliflozin) 300 Mg Tablet 300 Mg PO DAILY Lisinopril 2.5 Mg Tablet 2.5 Mg PO DAILY Pravastatin Sodium 80 Mg Tablet 80 Mg PO DAILY Assessment/Pt Instructions PCP in 1 week Discharge Planning: <30 minutes discharge planning Discharge Instructions Discharge Diet: ADA Diet Discharge Physical Examination Vital Signs Vital Signs Date Time Temp Pulse Resp B/P (MAP) Pulse Ox O2 Delivery O2 Flow Rate FiO2 09/03/23 09:01 97 Room Air 0.00 09/03/23 07:44 36.3 88 18 116/68 (84) 09/02/23 08:40 21 General Appearance: No Apparent Distress, WD/WN Allergies: Coded Allergies: No Known Drug Allergies (Unverified , 11/08/19) Discharge Summary Date of Admission Aug 30, 2023 at 21:42 Date of Discharge Discharge Date: Sep 03, 2023 Discharge Diagnosis Check UA Continue pain control I personally performed the mancera portions of the visit, discussed case with resident and concur with resident documentation of history, physical exam, assessment and treatment plan unless otherwise noted. (1) DKA (diabetic ketoacidosis) (2) Hypertriglyceridemia Status: Chronic (3) Pancreatitis Status: Resolved (4) Non-insulin dependent diabetes mellitus Status: Acute (5) Acute abdominal pain Status: Acute (6) Hyponatremia HERSON KIRBY DO Sep 03, 2023 10:17
[2023-09-03 11:39] VITALS: BP 118/76
[2023-09-03 13:50] VITALS: BP 118/76
--- NOTE | 2023-09-03 14:32 | Progress Note - Surgery ---
TEDDY BALTAZAR 09/03/23 1432: Subjective Date Seen by a Provider: Sep 03, 2023 Time Seen by a Provider: 12:00 Subjective/Events-last exam Paty Hernandez is doing good this morning and was walking around the room when I went to see him. His upper abdominal pain is gone and he is tolerating his diet without any nausea, vomiting, or abdominal pain. He had a bowel movement again this morning. He still has some RLQ/suprapubic pain that is aggravated by moment and has some sharp stabbing 8/10 pain every once in a while and has some tenderness to palpation. He no longer endorses burning with urination. He is scheduled to be discharged today. Review of Systems General: No Chills, No Night Sweats, No Fatigue HEENT: No Head Aches, No Eye Pain Pulmonary: No Dyspnea, No Cough Cardiovascular: No: Chest Pain, Palpitations Gastrointestinal: Abdominal Pain (RLQ/); No: Nausea, Vomiting Genitourinary: No Dysuria, No Frequency Musculoskeletal: back pain (right lower back pain ) Objective Exam Vital Signs Date Time Temp Pulse Resp B/P (MAP) Pulse Ox O2 Delivery O2 Flow Rate FiO2 09/03/23 13:50 36.5 100 20 118/76 97 Room Air 0.00 09/03/23 11:39 36.5 100 20 118/76 (90) 97 Room Air 09/03/23 09:01 97 Room Air 0.00 09/03/23 07:44 36.3 88 18 116/68 (84) 97 Room Air 09/03/23 04:00 36.7 87 18 105/69 (81) 97 Room Air 09/03/23 00:28 36.6 92 18 113/71 (85) 97 Room Air 09/02/23 20:50 Room Air 09/02/23 20:11 36.7 91 16 109/63 (78) 97 Room Air 09/02/23 19:12 95 Room Air 0.00 09/02/23 15:53 36.8 90 16 109/62 (78) 96 Room Air I & O 09/03/23 07:00 Intake Total 1530 ml Output Total 300 ml Balance 1230 ml Capillary Refill : General Appearance: No Apparent Distress, WD/WN HEENT: PERRL/EOMI, Moist Mucous Membranes; No Pharyngeal Erythema Neck: Non Tender, Supple Respiratory: Lungs Clear, Normal Breath Sounds, No Accessory Muscle Use, No Respiratory Distress Cardiovascular: Regular Rate, Rhythm, No Murmur Peripheral Pulses: 3+ Radial Pulses (R), 3+ Radial Pulses (L) Gastrointestinal: normal bowel sounds, soft, tenderness (tenderness in the RLQ/suprapubic area. ) Extremity: Non Tender Neurologic/Psychiatric: Alert Skin: Normal Color, Warm/Dry Lymphatic: No Adenopathy (Cervical or Supraclavicular ) Results Lab Laboratory Tests 09/02/23 16:54: Glucometer 265H 09/02/23 19:47: Glucometer 203H 09/03/23 05:45: White Blood Count 7.9, Red Blood Count 5.75H, Hemoglobin 14.7, Hematocrit 45, Mean Corpuscular Volume 78L, Mean Corpuscular Hemoglobin 26, Mean Corpuscular He moglobin Concent 33, Red Cell Distribution Width 14.3, Platelet Count 106L, Mean Platelet Volume 11.4, Immature Granulocyte % (Auto) 1, Neutrophils (%) (Auto) 67, Lymphocytes (%) (Auto) 19, Monocytes (%) (Auto) 10, Eosinophils (%) (Auto) 2, Basophils (%) (Auto) 0, Neutrophils # (Auto) 5.3, Lymphocytes # (Auto) 1.5, Monocytes # (Auto) 0.8, Eosinophils # (Auto) 0.1, Basophils # (Auto) 0.0, Immature Granulocyte # (Auto) 0.1, Percent Immature Platelet Fraction 6.9, Sodium Level 130L, Potassium Level 3.7, Chloride Level 99, Carbon Dioxide Level 21, Anion Gap 10, Blood Urea Nitrogen 11, Creatinine 0.81, Estimat Glomerular Filtration Rate 115, BUN/Creatinine Ratio 14, Glucose Level 128H, Calcium Level 9.0, Corrected Calcium 9.6, Magnesium Level 2.0, Total Bilirubin 1.2H, Aspartate Amino Transf (AST/SGOT) 20, Alanine Aminotransferase (ALT/SGPT) 26, Alkaline Phosphatase 55, Total Protein 6.6, Albumin 3.2 09/03/23 06:13: Glucometer 122H 09/03/23 11:42: Glucometer 271H Assessment/Plan Assessment/Plan Assessment/Plan Pancreatitis likely due to hypertriglyceridemia Abdominal Pain of LUQ (resolved) RLQ abdominal/suprapubic Pain Plan Patient to discharge today he is being sent home with some pain medication ARBEN SORENSON DO 09/03/23 1530: Subjective Time Seen by a Provider: 12:22 Subjective/Events-last exam Pt seen and examined, states he is tolerating diet. Still complains of some RLQ pain, he is being d/c'd per medicine. Review of Systems General: No Chills, No Night Sweats Cardiovascular: No: Chest Pain, Palpitations Gastrointestinal: Abdominal Pain (RLQ/); No: Nausea, Vomiting Objective Exam General Appearance: No Apparent Distress, WD/WN, Obese HEENT: PERRL/EOMI, Moist Mucous Membranes; No Pharyngeal Erythema Respiratory: Lungs Clear, Normal Breath Sounds, No Accessory Muscle Use, No Respiratory Distress Cardiovascular: Regular Rate, Rhythm, No Murmur Gastrointestinal: soft, tenderness (tenderness in the RLQ/suprapubic area. ) Neurologic/Psychiatric: Alert Assessment/Plan Assessment/Plan Assessment/Plan Pancreatitis likely due to hypertriglyceridemia - Resolved Abdominal Pain of LUQ (resolved) RLQ abdominal/suprapubic Pain - most likely musculoskeletal Patient to discharge today, he is being sent home with some pain medication Supervisory-Addendum Brief Verification & Attestation Participated in pt care: history, MDM, physical Personally performed: exam, history, MDM, supervision of care Care discussed with: Medical Student Procedures: n/a Verification and Attestation of Medical Student E/M Service A medical student performed and documented this service. I then reviewed and verified all information documented by the medical student and made modifications to such information, when appropriate. I personally performed a physical exam, medical decision making and then discussed any differences between the notes and made revisions as necessary to create one note. Arben Sorenson , 09/03/23 , 15:30 TEDDY BALTAZAR Sep 03, 2023 14:32 ARBEN SORENSON DO Sep 03, 2023 15:30
== END 2023-09-03 12:40 | disposition home or self-care (01) | DRG 637 ==
LOC: EDUNIT# 18:29 → ER 18:31 → ICU 21:42 → 4TH 09-01 13:27
PROVIDERS: ADMIT Internal Medicine; ATTEND Internal Medicine
DX: E11.10 Type 2 diabetes mellitus with ketoacidosis without coma (principal); K85.90 Acute pancreatitis without necrosis or infection, unspecified; E87.1 Hypo-osmolality and hyponatremia; N17.9 Acute kidney failure, unspecified; E78.1 Pure hyperglyceridemia; E87.5 Hyperkalemia; I10 Essential (primary) hypertension; E78.00 Pure hypercholesterolemia, unspecified; K21.9 Gastro-esophageal reflux disease without esophagitis; Z79.84 Long term (current) use of oral hypoglycemic drugs; Z79.891 Long term (current) use of opiate analgesic; Z79.899 Other long term (current) drug therapy
CPT/HCPCS: 36415; 36600; 74177; 76705; 80048; 80053; 80061; 80320; 81000; 81002; 82150; 82805; 82947; 83605; 83690; 83735; 84478; 85025; 93005; 94760; 96374; 96375